=== PATIENT | male | born 1960 | race Caucasian/White ===

== ENCOUNTER 2021-03-17 05:42 | Inpatient (IN) ==
--- NOTE | 2021-02-18 14:20 | PAT Medication Instructions ---
Medication Instructions Date of Service February 18, 2021 Home Medications metformin 1,000 mg tablet 1,000 mg PO BID rosuvastatin 20 mg tablet 20 mg PO HS cholecalciferol (vitamin D3) 25 mcg (1,000 unit) chewable tablet (Vitamin D3) 25 mcg PO QAM cyanocobalamin (vitamin B-12) 1,000 mcg tablet,extended release (Vitamin B-12 ER) 1,000 mcg PO QAM lisinopril 2.5 mg tablet 2.5 mg PO QAM melatonin 1 mg/mL oral liquid 3 mg PO HS PRN sitagliptin 100 mg tablet (Januvia) 100 mg PO QAM DO NOT take the morning of surgery metformin 1,000 mg tablet 1,000 mg PO BID cholecalciferol (vitamin D3) 25 mcg (1,000 unit) chewable tablet (Vitamin D3) 25 mcg PO QAM cyanocobalamin (vitamin B-12) 1,000 mcg tablet,extended release (Vitamin B-12 ER) 1,000 mcg PO QAM lisinopril 2.5 mg tablet 2.5 mg PO QAM sitagliptin 100 mg tablet (Januvia) 100 mg PO QAM Take evening before surgery metformin 1,000 mg tablet 1,000 mg PO BID rosuvastatin 20 mg tablet 20 mg PO HS melatonin 1 mg/mL oral liquid 3 mg PO HS PRN(if needed) Other Notes NOTHING TO EAT OR DRINK AFTER MIDNIGHT. If you have any questions please call us at [phone] or [phone] or [phone] or [phone]
--- NOTE | 2021-02-19 09:29 | Anesthesiology Consultation ---
Date of Service February 19, 2021 Assessment & Plan (1) Encounter for pre-operative examination: - surgeon ordered medical clearance and hyperkalemia response. Results forwarded to PCP. - cardiac clearance. Pt denies upcoming cardiac appointment, last visit May or June of this year with Dr. Good Goldberg in [place], [place]. Clearance form completed for pre-op cardiology clearance to also be scheduled given PA and CABG within past year. - check BSG am DOS. - COVID screening: Per assessment on 02/19/2021: Travel screen negative, no known COVID-19 positive contacts or current COVID-19 related symptoms. Surgeon arranging preop COVID testing, scheduled 03/03/2021. Awaiting results. Chart Review Chart Review: Acceptable Risk for Surgery (pending pre-op clearances) and Patie nt seen in Pre Admission Testing Teaching & Discussion Pre-Anesthesia Teaching/Discussion Notes: Instructed NPO after midnight before surgery, except medications with 15 cc of water. Medication instructions provided according to the PAT guidelines. History Surgery Operation Date: 03/05/21 13:25 Proposed Procedures p L3-L5 Decompression and Fusion - Ashish Cooney, Height/Weight Height: 5 ft 6 in Weight: 108.4 kg Allergies Allergy/AdvReac Type Severity Reaction Status Date / Time bee venom protein (honey bee) Allergy Severe Anaphylaxis--YELLOW Verified 02/18/21 10:10 JACKETS shellfish derived Allergy Severe THROAT Verified 02/18/21 10:10 SWELLS, HIVES, RASH erythromycin base AdvReac Mild nausea and Verified 02/19/21 09:41 vomiting Medications Home Medications Medication Instructions Recorded Confirmed Last Taken metformin 1,000 mg tablet 1,000 mg PO BID 11/17/19 02/18/21 11/16/19 rosuvastatin 20 mg tablet 20 mg PO HS 11/17/19 02/18/21 11/16/19 cholecalciferol (vitamin D3) 25 25 mcg PO QAM 02/18/21 02/18/21 Unknown mcg (1,000 unit) chewable tablet (Vitamin D3) cyanocobalamin (vitamin B-12) 1,000 mcg PO QAM 02/18/21 02/18/21 Unknown 1,000 mcg tablet,extended release (Vitamin B-12 ER) lisinopril 2.5 mg tablet 2.5 mg PO QAM 02/18/21 02/18/21 Unknown melatonin 1 mg/mL oral liquid 3 mg PO HS PRN 02/18/21 02/18/21 Unknown sitagliptin 100 mg tablet (Januvia) 100 mg PO QAM 02/18/21 02/18/21 Unknown acetaminophen PRN 02/19/21 Unknown aspirin 81 mg PO DAILY 02/19/21 02/19/21 Unknown Additional Notes: Pt relayed is also taking a daily aspirin 81 mg and acetaminophen prn for pain. He was counseled on need to discuss aspirin directions with prescribing provider and surgeon. He was counseled acetaminophen if needed can be taken am DOS with a small sip of water up to 4 hours before surgery. He verbalized understanding and agreement, written on medication instructions provided to patient as well. 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 Exercise / Class Metabolic Activity II 4-5 Yardwork/Stairs/Walk up hill (denies CP or SOB with 1 FOS) Past Surgical History Surgical History (Updated 02/19/21 @ 08:48 by Carmel Cortez PA-C) Hx of CABG x3-05/2020-[facility] in [place] Hx of cardiac cath 04/2020 d/t anterior cervical discectomy and fusion post-op EKG dx with inferior infarct: left main: 70-80% stenosis LAD: ostial 60-70% and diagonal branch 90% stenosis left Cx: ostial 90% stenosis RCA: proximal and mid 70-80% stenosis Hx of cervical spine surgery 04/2020 C5-7 - complicated by inferior infarct per [facility] records-subsequent cath and CABG Hx of colonoscopy Hx of hand surgery Toni contracture and trigger finger Past Anesthesia History No Hx of Anesthesia Complications and No Family Hx of Anesthesia Complications History of PONV No Hx of PONV and Hx of Motion Sickness Social History Smoking Status: Former smoker (quit 35 yrs ago-a few cigarettes daily x 2 yrs) Do You Dip or Chew Tobacco: No Hx Alcohol Use: Yes (rare) Hx Substance Use: No substance use type: does not use Review of Systems Snoring, denies witnessed apneas or sleep studies. Patient denies chest discomfort, shortness of breath, dyspnea on exertion, light headedness, dizziness, diaphoresis, GI upset, fatigue, malaise, reflux, fever, chills, cough, wheezing, or palpitations. Physical Exam Vital Signs Vitals BP 128/81 P 71 TEMP 97.8 SP02 97% on RA RESP 17 Physical Short, thick neck Limited cervical extension range of motion Full TMJ range of motion TMD 3 finger breaths Mallampati Score 4 Dentition: intact, missing upper back teeth, one chipped lower back tooth; denies loose teeth, caps/crowns, implants or bridges Lungs: normal respiratory effort. Clear throughout to auscultation, no adventitious breath sounds Cardiac: regular rate and rhythm, no murmurs noted Carotid arteries: negative bruit bilat Extremities: trace distal pitting edema distal lower extremities bilat, nontender, normal temperature (chronic per pt, prescribed prn diuretic by PCP) Lab Results Anesthesia Preop Results Results Anesthesia Widget: WBC 6.24 K/uL (4.8-10.8) 02/19/21 Hgb 15.0 g/dL (14.0-18.0) 02/19/21 Hct 44.2 % (42-52) 02/19/21 Plt 194 K/uL (130-400) 02/19/21 Na 139 mmol/L (136-145) 02/19/21 K 5.6 mmol/L (3.5-5.1) H 02/19/21 Cl 106 mmol/L (98-107) 02/19/21 CO2 28 mmol/L (21-32) 02/19/21 BUN 19 mg/dl (7-18) H 02/19/21 Creat 1.22 mg/dl (0.6-1.4) 02/19/21 Glucose Level 144 mg/dl (70-99) H 02/19/21 PT 10.1 Seconds (9.0-12.0) 02/19/21 PTT 25.2 Seconds (21.0-31.0) 02/19/21 INR 1.0 (0.9-1.1) 02/19/21 HA1c 7.3 % (4.5-5.6) H 02/19/21 Urine Color Dark Yellow 02/19/21 Urine Appearance Clear (Clear) 02/19/21 Urine pH 5.0 (4.5-7.5) 02/19/21 Urine Specific [place] 1.013 (1.000-1.030) 02/19/21 Urine Protein Negative (Negative) 02/19/21 Urine Glucose (UA) Negative (Negative) 02/19/21 Urine Ketones Negative (Negative) 02/19/21 Urine Blood Trace (Negative) H 02/19/21 Urine Nitrite Negative (Negative) 02/19/21 Urine Bilirubin Negative (Negative) 02/19/21 Urine Urobilinogen Negative (Negative) 02/19/21 Urine Leukocyte Esterase Negative (Negative) 02/19/21 Urine WBC (Auto) 0 /hpf (0-5) 02/19/21 Urine RBC (Auto) 0-4 /hpf (0-4) 02/19/21 Urine Hyaline Casts (Auto) 0 /lpf (0-5) 02/19/21 Urine Epithelial Cells (Auto) 0-5 /lpf (0-5) 02/19/21 Urine Bacteria (Auto) Negative (Negative) 02/19/21 Blood Type O Positive 02/19/21 Antibody Screen NEGATIVE 02/19/21 Testing Electrocardiogram Date: 02/19/21 Normal sinus rhythm, rate 68 bpm. Low voltage QRS Possible inferior infarct. Chest X-Ray Date: 05/28/20 The patient has had sternotomy. There is cervical fusion hardware lower cervical spine. There is a calcified granuloma in the right lower lung. The lungs are clear otherwise. The heart is moderately enlarged. Impression: No active disease. Granuloma right lower lung. Post sternotomy changes. Cardiomegaly. Echocardiogram Date: 06/25/20 Mild to moderate cLVH. EF 70-75%. Normal left ventricular size, wall dimension and systolic function. No wall motion abnormalities. Normal diastolic function. No significant valvular stenosis or regurgitation. No PFO/ASD identified. Estimated PA systolic pressure is normal. Cardiac Catheterization Date: 05/04/20 Left main: diffuse disease that tapers into 70-80% stenosis LAD: ostium 60-70% stenosis and 99% stenosis 1st diagonal branch Left Cx: Ostial 90% stenosis RCA: proximal and mid 70-80% stenosis Impression/plan: Multivessel and left main coronary artery disease as described above Normal LVEDP CT surgery evaluation for consideration for coronary artery bypass graft surgery
--- NOTE | 2021-03-16 11:03 | History & Physical Report ---
Date of Service March 16, 2021 Assessment & Plan (1) Neurogenic claudication due to lumbar spinal stenosis: Plan: Assessment lumbar spinal stenosis. Plan at this time patient does have an updated MRI dated 01/20/2020 one of the lumbar spine. Demonstrates anterior listhesis L4-5 with gross instability. There is severe spinal stenosis L3-L4 as well. There is evidence of epidural lipomatosis and marked clumping of the nerve roots secondary to neural compression. In light of his severe spinal stenosis progressive neuro deficits and limitations I am recommending urgent lumbar decompression fusion L3-L4 L4-L5. Risk benefits pros cons alternatives were outlined in detail. History of Present Illness Chief Complaint: Back and bilateral leg pain Primary Care Provider: Niels Quiles MD This is a 60-year-old male who presents with marked decline in status with consistent back and right leg pain. Has been progressive the past several years. Is failed extensive course of nonoperative care. He can only stand ambulate for very short period of time before he must sit secondary to leg pain and weakness. Allergies Allergy/AdvReac Type Severity Reaction Status Date / Time bee venom protein (honey bee) Allergy Severe Anaphylaxis--YELLOW Verified 02/18/21 10:10 JACKETS shellfish derived Allergy Severe THROAT Verified 02/18/21 10:10 SWELLS, HIVES, RASH erythromycin base AdvReac Mild nausea and Verified 02/19/21 09:41 vomiting Home Medications Medication Instructions Recorded Confirmed Type metformin 1,000 mg tablet 1,000 mg PO BID 11/17/19 02/18/21 History rosuvastatin 20 mg tablet 20 mg PO HS 11/17/19 02/18/21 History cholecalciferol (vitamin D3) 25 25 mcg PO QAM 02/18/21 02/18/21 History mcg (1,000 unit) chewable tablet (Vitamin D3) cyanocobalamin (vitamin B-12) 1,000 mcg PO QAM 02/18/21 02/18/21 History 1,000 mcg tablet,extended release (Vitamin B-12 ER) lisinopril 2.5 mg tablet 2.5 mg PO QAM 02/18/21 02/18/21 History melatonin 1 mg/mL oral liquid 3 mg PO HS PRN 02/18/21 02/18/21 History sitagliptin 100 mg tablet (Januvia) 100 mg PO QAM 02/18/21 02/18/21 History acetaminophen PRN 02/19/21 History aspirin 81 mg PO DAILY 02/19/21 02/19/21 History Past Med/Surg History Medical History (Updated 03/16/21 @ 11:02 by Ashish Cooney DO) CAD (coronary artery disease) s/p 3 vessel CABG 05/2020, [facility] De Quervain's disease (tenosynovitis) 1985, resolved Diabetes controlled, stable per pt History of COVID-19 01/23/2020 - chills, pharyngitis, fatigue, cough, low grade fever and malaise- symptoms fully resolved Hyperlipidemia Hypertension controlled, stable per pt Myocardial infarction 04/2020 during cervical fusion > cath > CABG > 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 [place] Spinal stenosis Steatosis of liver in [facility] records, pt unaware, denies previous LFT testing Surgical History (Updated 02/19/21 @ 08:48 by Carmel Cortez PA-C) Hx of CABG x3-05/2020-[facility] in [place] Hx of cardiac cath 04/2020 d/t anterior cervical discectomy and fusion post-op EKG dx with inferior infarct: left main: 70-80% stenosis LAD: ostial 60-70% and diagonal branch 90% stenosis left Cx: ostial 90% stenosis RCA: proximal and mid 70-80% stenosis Hx of cervical spine surgery 04/2020 C5-7 - complicated by inferior infarct per [facility] records-subsequent cath and CABG Hx of colonoscopy Hx of hand surgery Toni contracture and trigger finger Social History Smoking Status: Former smoker (quit 35 yrs ago-a few cigarettes daily x 2 yrs) Tobacco Type: Cigarettes Second Hand Exposure: No; Hx Alcohol Use: Yes (rare) Hx Substance Use: No Preferred Language: Tongan Communication Ability: Effective Deodorizer Operator Required: No Beliefs That Will Affect Care: None Current Living Situation: Spouse Feels Safe at Home: Yes Assistive Devices: Glasses Physical Exam Physical Exam: On exam he does Exhibit 4-/5 bilateral quadriceps plantar flexion is a 5 or 5 bilaterally. Sensory appears to be intact deep tendon reflexes diminished.
[2021-03-17] MEDS ORDERED: LR 15ML/HR IV SCH (06:00)
[2021-03-17] MEDS ORDERED: CLINDAMYCIN 600 MG/54 ML BAG IV SCH (06:00)
[2021-03-17] MEDS ORDERED: CeleBREX 200 MG CAP PO SCH (06:00)
[2021-03-17] MEDS ORDERED: GABAPENTIN 600 MG DOSE PO SCH (06:00)
[2021-03-17] MEDS ORDERED: ACETAMINOPHEN 500 MG TAB PO SCH (06:00)
[2021-03-17] MEDS ORDERED: HYDROmorphone INJ 2 MG/ML SYR/VIAL IV PRN (06:30)
[2021-03-17] MEDS ORDERED: ATROPINE SULFATE 0.1 MG/ML 10ML SYR IV PRN (06:30)
[2021-03-17] MEDS ORDERED: ePHEDrine sulfate 50 MG/ML AMP IV PRN (06:30)
[2021-03-17] MEDS ORDERED: ONDANSETRON INJ 2 MG/ML 2 ML VIAL IV PRN ×2 (06:30→12:53)
[2021-03-17] MEDS ORDERED: NEOSTIGMINE METHYLSULFATE 1 MG/ML 10ML VIAL ONE (06:54)
[2021-03-17] MEDS ORDERED: ONDANSETRON INJ 2 MG/ML 2 ML VIAL ONE (06:54)
[2021-03-17] MEDS ORDERED: ROCURONIUM BROMIDE 10 MG/ML 5 ML VIAL IV ONE (06:54)
[2021-03-17] MEDS ORDERED: DEXAMETHASONE SOD INJ 4 MG/ML VIAL ONE (06:54)
[2021-03-17] MEDS ORDERED: GLYCOPYRROLATE 0.2 MG/ML VIAL ONE (06:54)
[2021-03-17] MEDS ORDERED: HYDROmorphone INJ 2 MG/ML SYR/VIAL ONE (06:54)
[2021-03-17] MEDS ORDERED: MIDAZOLAM HCL 1 MG/ML 2ML VIAL ONE (06:54)
[2021-03-17] MEDS ORDERED: fentaNYL citrate 100 MCG/2 ML VIAL ONE (06:54)
--- NOTE | 2021-03-17 07:32 | History & Physical Bridge Note ---
Date of Service March 17, 2021 History & Physical Bridge Note I have examined the patient, reviewed the History & Physical and in the interval since the performance of the History & Physical I have noted the following changes of clinical significance: no changes noted
[2021-03-17] MEDS ORDERED: BUPIVACAINE 0.5 % 5 MG/1 ML MPF 30ML VIAL ONE (07:35)
[2021-03-17] MEDS ORDERED: EPINEPHrine INJ 1 MG/ML AMP ONE (07:35)
[2021-03-17] MEDS ORDERED: FLOSEAL HEMOSTATIC MATRIX 10ML TOP ONE (09:55)
--- NOTE | 2021-03-17 09:59 | Operative Report ---
Post Operative Report Pre & Post Diagnosis Operation Date: 03/17/21 07:15 Pre-Op Diagnosis: Spinal Stenosis, Lumbar Region with Neurogenic Claudication Post-Op Diagnosis: Spinal Stenosis, Lumbar Region with Neurogenic Claudication I identified the patient and participated in the time-out.: Yes Procedure Operation Date: 03/17/21 07:15 Actual Procedures #1 lumbar decompression with bilateral medial facetectomies and foraminotomies L2-L3, L3-L4 and L4-5. #2 posterior spinal fusion L3-L4 L4-5. #3 placement posterior instrumentation L3-L4 L4-L5. #4 interbody fusion L3-L4 L4-L5. #5 placement of titanium cage 11 x 26 mm at L3-L4 and 12 x 26 mm at L4-L5. #6 placement locally harvested morselized autograft in the posterior gutters. #7 placement infuse collagen sponge, and master graft in the posterior lateral gutters and I factor interbody space. Surgeon Ashish Cooney, DO Horse Identifier Michael Treviño Estimated Blood Loss 250 Findings See Below Patient is 5 foot 5 inches tall weighing over 105 kg with a BMI in excess of 38. The patient's body habitus did contribute to significant technical difficulty requiring her deepest retractors longus instruments in order to perform his procedure. This had at least 50% increased operative time. Specimens None Indications This is a 60-year-old male who presents above-mentioned diagnosis after failing course of nonoperative care is here for the above-mentioned procedure. Description of Procedure Patient was met with identified informed consent obtained. Patient was then taken to the operative suite underwent a patient placed in a prone position the [place] table top Akshat frame. All bony prominences well-padded eyes inspected to ensure no external pressure placed upon the. This point the lumbar spine is prepped and draped in a normal sterile fashion. Sharp dissection with the assistance of Bovie cautery was performed down to and exposing the lamina and transverse processes of L3-L4-L5. From caudal to cephalad fashion complete laminectomy of L4 L3 and partial laminectomy of L2 was performed including bilateral medial facetectomies and foraminotomies addressing severe spinal stenosis. Pedicle screws were then placed in L3-L4-L5 bilaterally with assistance of fluoroscopy and the properly sized nella placed. By way of a transforaminal approach on the left complete discectomy of L for L5 was performed endplates curetted to subcortical being bone and a 12 x 26 mm titanium cage filled with I factor tapped in position. Then proceeded to L3-L4 and again by way of a transforaminal portion left knee discectomy performed endplates curetted to subcortical bleeding bone and a 11 x 26 mm titanium cage filled with I factor tapped into position. The rods were then compressed locked into final position bilaterally. The transverse processes of L3-L4-L5 burred to subcortical bleeding bone. Infuse collagen sponge mass graft local autograft was placed in the posterior gutters. 15 round KEERTHI drain inserted. The incision was then closed with 1 Vicryl in the fascia 2-0 Vicryl subcutaneously and 4 Monocryl for final skin closure. Steri-Strip sterile dressings placed. Patient will continue PACU stable condition. Please note spinal cord monitoring was utilized at the procedure no changes noted. Lastly Michael Trveiño was present for the entire surgery involved the patient positioning complex portions of the surgery and final skin closure. I attest to the content of the Intraoperative Record and any orders documented therein. Any exceptions are noted below.
--- NOTE | 2021-03-17 10:39 | Fluoroscopy Report ---
FL lumbar spine 2-3V CLINICAL HISTORY: L3-L5 decompression and fusion. COMPARISON STUDY: None. FLUOROSCOPY TIME: 23 seconds. FLUOROSCOPIC IMAGES: 2 FINDINGS: Fluoroscopy was provided during L3-L4 and L4-L5 discectomies with interbody spacer placemen t. Posterior decompression and bilateral pedicle screw fusion from L3 through L5 is noted. Hardware i s intact. IMPRESSION: Fluoroscopy provided during L3-L5 discectomies, posterior decompression and bilateral pe dicle screw fusion. ACT 112: Negative or not required by law. Electronically signed by: Delbert Brock M.D. 03/17/2021 10:37 AM
[2021-03-17] MEDS: fentaNYL citrate 100 MCG/2 ML VIAL IV PRN ×2 (10:51→11:04)
[2021-03-17] MEDS ORDERED: HYDROmorphone INJ 0.5 MG/0.5 ML SYR IV PRN (12:53)
[2021-03-17] MEDS ORDERED: traMADol HCL 50 MG TABLET PO PRN (12:53)
[2021-03-17] MEDS ORDERED: MAGNESIUM HYDROXIDE SUSP 30 ML UDC PO PRN (12:53)
[2021-03-17] MEDS ORDERED: LORazepam 0.5 MG TAB PO PRN (12:53)
[2021-03-17] MEDS ORDERED: ONDANSETRON 4 MG OD TAB PO PRN (12:53)
[2021-03-17] MEDS ORDERED: ACETAMINOPHEN 500 MG TAB PO PRN (12:53)
[2021-03-17] MEDS ORDERED: diphenhydrAMINE Capsule 25 MG CAP PO PRN (12:53)
[2021-03-17] MEDS ORDERED: LORazepam 0.5 MG/1 ML VIAL IV PRN (12:53)
[2021-03-17] MEDS ORDERED: PROMETHAZINE HCL 12.5 MG in SODIUM CHLORIDE 0.9% 50 ML IV PRN (12:53)
[2021-03-17] MEDS ORDERED: FAMOTIDINE 20 MG TAB PO PRN (12:53)
[2021-03-17] MEDS ORDERED: bisacodyL 10 MG SUPP PR PRN (12:53)
[2021-03-17] MEDS ORDERED: hydrOXYzine HCl 25 MG TAB PO PRN (12:53)
[2021-03-17] MEDS ORDERED: METOCLOPRAMIDE HCL INJ 5 MG/ML 2 ML VIAL IV PRN (12:53)
[2021-03-17] MEDS ORDERED: SOD PHOSPHATE/SOD BIPHOSPHATE ENEMA 132 ML BTL PR PRN (12:53)
[2021-03-17] MEDS ORDERED: NALOXONE HCL 0.4 MG/1 ML VIAL/CARP IV PRN (12:53)
[2021-03-17] MEDS ORDERED: DO NOT ADMINISTER FLU VACCINE PRN (12:53)
[2021-03-17] MEDS ORDERED: ALUMINUM/MAGNESIUM SUSP 30 ML UDC PO PRN (12:53)
[2021-03-17] MEDS ORDERED: PHARMACY GLYCEMIC MGMT CONSULT PRN (12:53)
[2021-03-17] MEDS ORDERED: ACETAMINOPHEN 1,000 MG/100 ML VIAL IV PRN (12:53)
[2021-03-17] MEDS ORDERED: DO NOT ADMINISTER PNEUMOCOCCAL VACCINE PRN (12:53)
[2021-03-17] MEDS ORDERED: MELATONIN 3 MG TAB PO PRN (13:04)
--- NOTE | 2021-03-17 13:22 | Pharmacy Report ---
Pharmacy Glycemic Short Note 2 - Date of Service March 17, 2021 - Glycemic Short BSG Results (Last 24 hours): 03/17/21 03/17/21 03/17/21 06:14 10:29 12:52 POC Glucose 164 H 172 H 219 H OUTPATIENT ANTIDIABETIC REGIMEN: * Januvia 100 mg daily * metformin 1000 mg PO BID ASSESSMENT: * Mr Butt is a 60 y/o M with a PMH of T2DM on two oral agents who presents for spinal surgery. * He received dexamethasone 4 mg IV intraop and is ordered dexamethasone 6 mg IV daily x 3 days * Patient's BSGs today have been 164-172-219 mg/dL. * Give NPH 40 units (0.4 units/kg) x 1 for steroid hyperglycemia. Ongoing NPH dosing to be determined by response today. * Novolog weight-based stress of 3 PLAN FOR INPATIENT GLYCEMIC CONTROL: * Hold outpatient oral diabetes medications * Basal insulin * NPH 40 units SQ x 1 then reassess * Bolus insulin * NovoLog per scale ACHS or Q6hrs while NPO * Goal Range: Low 110 mg/dL - High 140 mg/dL * Correction Factor: 15 mg/dL/unit * Nutritional / Prandial insulin per carb ratio of 1 unit per 5 grams CHO consumed PLAN FOR DISCHARGE: * Patient's HbA1C is 7.3% which is slightly above goal range of < 7% for his age and comorbidities. * Recommend close follow-up with PCP to determine appropriate changes.
[2021-03-17] MEDS ORDERED: INSULIN HUMAN NPH SC ONE (13:30)
[2021-03-17] MEDS ORDERED: GLUCAGON FOR INJ 1 MG VIAL IM PRN (13:30)
[2021-03-17] MEDS ORDERED: GLUCOSE 40% GEL 15 GM TUBE PO PRN (13:30)
[2021-03-17] MEDS ORDERED: GLUCOSE 10 TABS/TUBE PO PRN (13:30)
[2021-03-17] MEDS ORDERED: CARBOHYDRATES FOR HYPOGLYCEMIA PO PRN (13:30)
[2021-03-17] MEDS ORDERED: DEXTROSE 50% 50 ML SYRINGE IV PRN (13:30)
--- NOTE | 2021-03-17 13:30 | Consultation ---
Date of Consultation March 17, 2021 Assessment & Plan (1) Status post lumbar surgery: Post op day# 0 S/P L2-L5 decompression, L2-L5 fusion by Dr Cooney EBWilma#250 mL -pain management per ortho -wound management per ortho -PT/OT as appropriate -DVT prophylaxis per ortho -incentive spirometry -monitor H&H for acute blood loss anemia; preop Hgb: 15 (2) Diabetes mellitus, type II: A1c: 7.3 on 02/2021 Hold home meds Basal bolus insulin per protocol. Glycemic pharmacy on board and managing, appreciate management (3) CAD (coronary artery disease): S/P CABG in 04/2020 Denies chest pain, shortness of breath Continue aspirin, rosuvastatin, lisinopril (4) CKD (chronic kidney disease), stage III: Baseline Cr:1.1 Monitor renal functions, avoid nephrotoxic agents when possible (5) Hypertension: Continue lisinopril with holding parameters (6) Hyperlipidemia: Continue rosuvastatin DVT Prophylaxis SCDs per ortho Disposition per primary service Follows with Dr Eboni Peralta for routine care Pt was seen and care coordinated with Dr Preciado. See addendum Thank you for this consultation. We will follow the patient with you during their hospital stay. You can reach a member of the [facility] Hospitalist Team 10/10 via TigerText Supervising Physician Co-Signing Physician Notes Attending addendum: The patient was seen and examined in medical floor 60-year-old obese male with type 2 diabetes, hypertension and CKD and CAD status post CABG underwent L2-5 decompression fusion Complains today of some back pain without any radiation of pain Denies any other significant symptoms On examination Lying in bed comfortably Hemodynamically stable Chest-clear to auscultate bilaterally Heart-S1-S2, regular Abdomenbenign Extremities-trace edema bilaterally [employer]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, 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 His preop labs, EKG and imaging studies reviewed Status post L2-5 lumbar decompression fusion Management will be as per orthopedic surgeon Remains medically stable with medical conditions as mentioned earlier Agree with assessment and plan as outlined above by OLU Lee Dr History of Present Illness Requesting Physician: Dr Cooney Reason for Consultation: Post op medical management Attending Physician: Ashish Cooney DO History of Present Illness Patient is 60 y/o M with PMH HTN, dyslipidemia, CAD s/p CABG, DM II, CKD III, obesity seen in medical consultation s/p L2-L5 decompression and L3-L5 fusion today by Dr Cooney. Post op patient reports pain control, still feels a little drowsy. Denies nausea, vomiting, chest pain, shortness of breath. Reports bilateral leg still with a little paresthesias. Is tolerating water. Denies fever/chills, diaphoresis, RAHMAN, dizziness, syncope, vision changes, neck pain, palpitations, cough, sore throat, choking, otalgia, rhinorrhea, abdominal pain, weakness, extremity edema, rashes, urinary symptoms. Allergies Allergy/AdvReac Type Severity Reaction Status Date / Time bee venom protein (honey bee) Allergy Severe Anaphylaxis--YELLOW Verified 03/17/21 05:57 JACKETS shellfish derived Allergy Severe THROAT Verified 03/17/21 05:57 SWELLS, HIVES, RASH erythromycin base AdvReac Mild nausea and Verified 03/17/21 05:57 vomiting Home Medications Medication Instructions Recorded Confirmed Type metformin 1,000 mg tablet 1,000 mg PO BID 11/17/19 03/17/21 History rosuvastatin 20 mg tablet 20 mg PO HS 11/17/19 03/17/21 History cholecalciferol (vitamin D3) 25 25 mcg PO QAM 02/18/21 03/17/21 History mcg (1,000 unit) chewable tablet (Vitamin D3) cyanocobalamin (vitamin B-12) 1,000 mcg PO QAM 02/18/21 03/17/21 History 1,000 mcg tablet,extended release (Vitamin B-12 ER) melatonin 1 mg/mL oral liquid 3 mg PO HS PRN 02/18/21 03/17/21 History sitagliptin 100 mg tablet (Januvia) 100 mg PO QAM 02/18/21 03/17/21 History acetaminophen PRN 02/19/21 History aspirin 81 mg PO DAILY 02/19/21 03/17/21 History lisinopril 5 mg tablet 5 mg PO DAILY 03/17/21 03/17/21 History Patient History Medical History (Updated 03/17/21 @ 13:52 by Ginger Okeefe PA-C) CAD (coronary artery disease) s/p 3 vessel CABG 05/2020, [facility] CKD (chronic kidney disease), stage III De Quervain's disease (tenosynovitis) 1984, resolved Diabetes controlled, stable per pt History of COVID-19 01/23/2020 - chills, pharyngitis, fatigue, cough, low grade fever and malaise- symptoms fully resolved Hyperlipidemia Hypertension controlled, stable per pt Myocardial infarction 04/2020 during cervical fusion > cath > CABG > 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 [place] Spinal stenosis Steatosis of liver in [facility] records, pt unaware, denies previous LFT testing Surgical History (Updated 03/17/21 @ 13:51 by Ginger Okeefe PA-C) Hx of CABG x3-05/2020-[facility] in [place] Hx of cardiac cath 04/2020 d/t anterior cervical discectomy and fusion post-op EKG dx with inferior infarct: left main: 70-80% stenosis LAD: ostial 60-70% and diagonal branch 90% stenosis left Cx: ostial 90% stenosis RCA: proximal and mid 70-80% stenosis Hx of cervical spine surgery 04/2020 C5-7 - complicated by inferior infarct per [facility] records-subsequent cath and CABG Hx of colonoscopy Hx of hand surgery Toni contracture and trigger finger Status post lumbar surgery 03/17/21 -Lumbar decompression, fusion. Dr Cooney Social History Smoking Status: Former smoker (quit 35 yrs ago-a few cigarettes daily x 2 yrs) Tobacco Type: Cigarettes Second Hand Exposure: No; Do You Dip or Chew Tobacco: No; Tobacco Cessation Education Requested by Patient: No Hx Alcohol Use: Yes (rare) Hx Substance Use: No Preferred Language: Arabic Communication Ability: Effective Mobile Electronics Installer Required: No Beliefs That Will Affect Care: None Current Living Situation: Spouse Other Information That Helps Us Care for You: No Feels Safe at Home: Yes Safety Concerns: Feels Safe At This Time Assistive Devices: Glasses Review of Systems Review of Systems: All systems reviewed & are unremarkable except as noted in HPI & below Physical Exam Physical Exam: General: no distress, WDWN Head: normocephalic, atraumatic Eyes: conjunctiva non-injected, anicteric ENT: normal inspection external ears, nose, mucous membranes moist Neck: supple, trachea midline Lungs: clear, no respiratory distress, no wheezing/rhonchi/rales CV: RRR, no murmur, no pretibial edema, chest wall with healed surgical scar Abd: normal BS, soft, non-tender Ext: no cyanosis, no calf tenderness Neuro: A&O x 3, no focal deficits noted, normal affect Skin: warm, dry Results & Data ([facility]) Vital Signs (Past 12 Hours) Vital Signs Temp Pulse Pulse Resp BP Pulse Ox 03/17/21 13:15 36.6 C 83 17 104/69 97 03/17/21 12:15 36.6 C 74 16 104/66 95 03/17/21 11:45 72 18 95/61 L 95 03/17/21 11:35 70 16 99/60 L 95 03/17/21 11:25 69 17 97/63 L 96 03/17/21 11:15 70 14 99/60 L 95 03/17/21 11:05 76 18 102/65 97 03/17/21 10:55 70 11 L 101/68 93 03/17/21 10:45 69 16 95/64 L 94 03/17/21 10:35 79 17 111/69 96 03/17/21 10:26 36.7 C 82 16 106/67 95 03/17/21 06:00 36.6 C 77 18 143/92 H 95
[2021-03-17] MEDS: SODIUM CHLORIDE 0.9% 1000ML 1,000 ML IV SCH ×2 (13:42→23:17)
[2021-03-17] MEDS: INSULIN ASPART PER UNIT SC SCH ×4 (13:48→23:56)
[2021-03-17] MEDS: KETOROLAC TROMETHAMINE 15 MG/ML VIAL IV SCH ×2 (13:54→19:38)
--- NOTE | 2021-03-17 14:54 | Anesthesiology Progress Note ---
Date of Service March 17, 2021 Anesthesia Post Procedure Vital Signs Vital Signs: Temp Pulse Pulse Resp BP Pulse Ox 03/17/21 13:45 36.5 C 91 H 16 99/64 L 97 03/17/21 13:15 36.6 C 83 17 104/69 97 03/17/21 12:15 36.6 C 74 16 104/66 95 03/17/21 11:45 72 18 95/61 L 95 03/17/21 11:35 70 16 99/60 L 95 03/17/21 11:25 69 17 97/63 L 96 03/17/21 11:15 70 14 99/60 L 95 03/17/21 11:05 76 18 102/65 97 03/17/21 10:55 70 11 L 101/68 93 03/17/21 10:45 69 16 95/64 L 94 03/17/21 10:35 79 17 111/69 96 03/17/21 10:26 36.7 C 82 16 106/67 95 03/17/21 06:00 36.6 C 77 18 143/92 H 95 Pain Intensity Back: Pain Intensity: 2 Transfer of Care Handoff Completed per policy Notes Mental Status: alert / awake / arousable and participated in evaluation Patient Amnestic to Procedure: Yes Nausea / Vomiting: adequately controlled Pain: adequately controlled Airway Patency, RR, SpO2: stable & adequate BP & HR: stable & adequate Hydration State: stable & adequate Anesthetic Complications: no major complications apparent and Pt Satisfied with anesthetic care
[2021-03-17] MEDS ORDERED: INSULIN ASPART PER UNIT SC SCH (16:30)
[2021-03-17] MEDS: HYDROmorphone INJ 1 MG/ML SYRINGE IV PRN (16:46)
[2021-03-17] MEDS: ceFAZolin 2000MG 2,000 MG/15 ML SYR IV SCH (17:29)
[2021-03-17] MEDS: DOCUSATE SODIUM/SENNA 50/8.6MG TAB PO SCH (20:45)
[2021-03-17] MEDS: oxyCODONE HCL IR 5 MG TAB (IMMEDIATE RELEASE) PO PRN (20:45)
[2021-03-17] MEDS: ROSUVASTATIN CALCIUM 20 MG TAB PO SCH (20:45)
[2021-03-18] MEDS: ceFAZolin 2000MG 2,000 MG/15 ML SYR IV SCH (01:00)
[2021-03-18] MEDS: KETOROLAC TROMETHAMINE 15 MG/ML VIAL IV SCH ×2 (01:01→08:08)
[2021-03-18] MEDS: INSULIN ASPART PER UNIT SC SCH ×5 (04:03→21:07)
[2021-03-18] MEDS: POLYETHYLENE (MIRALAX) 17 GM PACK PO SCH ×4 (06:03→23:33)
[2021-03-18 07:38] LABS: Basophils # (auto) 0.01 K/uL (0-0.2); Basophils % (auto) 0.1 %; Eosinophils # (auto) 0.02 K/uL (0-0.5); Eosinophils % (auto) 0.1 %; Hematocrit (blood only) 35.6 % (42-52); Hemoglobin 11.7 g/dL (14.0-18.0); Immature Granulocytes # (auto) 0.05 K/uL (0.00-0.02); Immature Granulocytes % (auto) 0.4 %; Lymphocytes # (auto) 1.65 K/uL (1.2-3.4); Mean Corpuscular Hemoglobin 28.4 pg (25-34); Mean Corpuscular Hgb Conc 32.9 g/dL (32-36); Mean Corpuscular Volume 86.4 fL (80-100); Mean Platelet Volume 9.9 fL (7.4-10.4); Monocytes # (auto) 1.43 K/uL (0.11-0.59); Monocytes % (auto) 10.4 %; Platelet Count 184 K/uL (130-400); RDW Coefficient of Variation 13.1 % (11.5-14.5); RDW Standard Deviation 41.4 fL (36.4-46.3); Red Blood Count 4.12 M/uL (4.7-6.1); White Blood Count 13.76 K/uL (4.8-10.8)
--- NOTE | 2021-03-18 07:58 | Hospitalist Progress Note ---
Date of Service March 18, 2021 Assessment & Plan (1) Status post lumbar surgery: Plan: Post op day# 1 S/P L2-L5 decompression, L2-L5 fusion by Dr Ivet PICKETT#250 mL Per ortho for pain control, wound care, anticoagulation and activities Continue incentive spirometry, PT/OT when appropriate (2) Postoperative anemia due to acute blood loss: Plan: Hgb 11.7 (pre-op hgb 15) in post op setting Asymptomatic Monitor with daily CBC (3) Diabetes mellitus, type II: Plan: A1c: 7.3 on 02/2021 Hold home meds Basal bolus insulin per protocol. Glycemic pharmacy on board and managing, appreciate management (4) CAD (coronary artery disease): Plan: S/P CABG in 04/2020 Denies chest pain, shortness of breath Continue aspirin, rosuvastatin, lisinopril (5) CKD (chronic kidney disease), stage III: Plan: Baseline Cr:1.1 Monitor renal functions, avoid nephrotoxic agents when possible (6) Hypertension: Plan: Continue lisinopril with holding parameters (7) Hyperlipidemia: Plan: Continue rosuvastatin DVT Prophylaxis SCDs per ortho Disposition per primary service Follows with Dr Eboni Peralta for routine care Pt was seen and care coordinated with Dr. Lagos. See addendum Thank you for this consultation. We will follow the patient with you during their hospital stay. You can reach a member of the [facility] Hospitalist Team 10/10 via TigerText Admission and Anticipated Discharge Date Admission Date: March 17, 2021 Supervising Physician Co-Signing Physician Notes 60-year-old gentleman with PMH of CKD stage III, HLD, HTN, DM type II, neurogenic claudication due to lumbar spinal stenosis, diabetes is a consult for medical management. Patient is a status post lumbar surgery 03/17 [status post L2-L5 decompression and fusion]. Monitor for postoperative anemia, CBC daily, continue home meds as appropriate. Incentive spirometry. Anticoagulation and physical therapy and pain management per primary team. Upon examination, dressing over the lower back noted with KEERTHI drain with serosanguineous collection. Other examination as above. I have seen and examined the patient and have discussed the case with the provider above. I agree with the assessment and plan as stated. Subjective Patient seen and examined in 322-1. Feeling well today, with minimal surgical site pain. Walking and participating in therapy without issue. Has Fontenot in place draining urine. Passing flatus, no bowel movement. No fever, chills, headache, lightheadedness, nausea, vomiting, abdominal pain, dysuria or diarrhea. Review of Systems Review of Systems: At least ten systems reviewed and negative except as noted in the HPI. Physical Exam Physical Exam: Gen: WD/WN, NAD, sitting in bedside chair, A&Ox3, obese HEENT: Normocephalic, atraumatic, conjunctivae moist, sclerae anicteric, mucous membranes moist Lung: Clear to Auscultation bilaterally, no wheezes/rales/rhonchi Heart: Regular rate, regular rhythm, no murmurs, rubs, or gallops Abdomen: Soft, NT, ND +BS x 4 Extremities: Spinal dressing in place, KEERTHI drain visualized, no edema Skin: Warm, no rash Results & Data Results & Data ([facility]) Vital Signs (Past 12 Hours) Vital Signs Temp Pulse Resp BP BP Pulse Ox 03/18/21 07:26 36.8 C 75 16 120/73 94 03/18/21 03:34 36.7 C 73 16 128/83 96 03/17/21 21:58 36.5 C 80 16 150/87 H 93 Laboratory Results Short CBC 03/18/21 Range/Units 06:57 WBC 13.76 H (4.8-10.8) K/uL Hgb 11.7 L (14.0-18.0) g/dL Hct 35.6 L (42-52) % Plt Count 184 (130-400) K/uL Diagnostic Findings Lumbar Spine X-Ray 03/17/21 07:15 FL lumbar spine 2-3V CLINICAL HISTORY: L3-L5 decompression and fusion. COMPARISON STUDY: None. FLUOROSCOPY TIME: 23 seconds. FLUOROSCOPIC IMAGES: 2 FINDINGS: Fluoroscopy was provided during L3-L4 and L4-L5 discectomies with interbody spacer placement. Posterior decompression and bilateral pedicle screw fusion from L3 through L5 is noted. Hardware is intact. IMPRESSION: Fluoroscopy provided during L3-L5 discectomies, posterior decompression and bilateral pedicle screw fusion. ACT 112: Negative or not required by law. Electronically signed by: Delbert Brock M.D. 03/17/2021 10:37 AM
[2021-03-18 08:06] LABS: BUN Creatinine Ratio 14.2 (10-20); Calcium 8.3 mg/dl (8.5-10.1); Creatinine Clr Calc Pharmacy 38.1 ml/min; Est GFR (Non-African American) 29.3 ml/min
[2021-03-18] MEDS: CYANOCOBALAMIN 500 MCG TABLET (VITAMIN B-12) PO SCH (08:08)
[2021-03-18] MEDS: CHOLECALCIFEROL 1,000 UNITS 25 MCG TAB PO SCH (08:09)
[2021-03-18] MEDS: ASPIRIN 81 MG ECTAB PO SCH (08:09)
[2021-03-18] MEDS: dexAMETHasone 6 MG in SYRINGE 0 ML IV SCH (08:09)
[2021-03-18] MEDS: INSULIN HUMAN NPH SC SCH (08:15)
[2021-03-18] MEDS: lisinopril 5 MG TAB PO SCH (08:57)
[2021-03-18] MEDS ORDERED: lisinopril 2.5 MG TAB PO SCH (09:00)
[2021-03-18] MEDS ORDERED: SITagliptin PHOSPHATE 100 MG TAB PO SCH (09:00)
[2021-03-18] MEDS: oxyCODONE HCL IR 5 MG TAB (IMMEDIATE RELEASE) PO PRN ×2 (09:42→16:51)
--- NOTE | 2021-03-18 10:58 | Orthopedic Progress Note ---
Date of Service March 18, 2021 Assessment & Plan (1) Neurogenic claudication due to lumbar spinal stenosis: Plan: At this time we will continue physical therapy monitor KEERTHI output anticipate discharge home in the next few days. Admission and Anticipated Discharge Date Admission Date: March 17, 2021 Subjective Back pain is controlled leg symptoms markedly improved Physical Exam Physical Exam: Patient is in the chair at the bedside. Is good strength testing. Appears comfortable. Results & Data ([facility]) Vital Signs (Past 12 Hours) Vital Signs Temp Pulse Resp BP BP Pulse Ox 03/18/21 07:26 36.8 C 75 16 120/73 94 03/18/21 03:34 36.7 C 73 16 128/83 96
[2021-03-18] MEDS: ROSUVASTATIN CALCIUM 20 MG TAB PO SCH (21:08)
[2021-03-18] MEDS: DOCUSATE SODIUM/SENNA 50/8.6MG TAB PO SCH (21:08)
[2021-03-18] MEDS: HYDROmorphone INJ 1 MG/ML SYRINGE IV PRN (21:08)
[2021-03-19] MEDS: POLYETHYLENE (MIRALAX) 17 GM PACK PO SCH ×4 (06:00→23:35)
[2021-03-19] MEDS: oxyCODONE HCL IR 5 MG TAB (IMMEDIATE RELEASE) PO PRN ×2 (06:01→16:44)
[2021-03-19 06:22] LABS: Hematocrit (blood only) 35.3 % (42-52); Hemoglobin 11.6 g/dL (14.0-18.0); Mean Corpuscular Hemoglobin 28.5 pg (25-34); Mean Corpuscular Hgb Conc 32.9 g/dL (32-36); Mean Corpuscular Volume 86.7 fL (80-100); Platelet Count 183 K/uL (130-400); RDW Coefficient of Variation 13.2 % (11.5-14.5); Red Blood Count 4.07 M/uL (4.7-6.1); White Blood Count 11.93 K/uL (4.8-10.8)
[2021-03-19 06:56] LABS: BUN Creatinine Ratio 19.9 (10-20); Calcium 8.8 mg/dl (8.5-10.1); Creatinine Clr Calc Pharmacy 59.1 ml/min; Est GFR (African American) 57.8 ml/min; Est GFR (Non-African American) 49.8 ml/min; Potassium 4.9 mmol/L (3.5-5.1)
--- NOTE | 2021-03-19 08:46 | Hospitalist Progress Note ---
Date of Service March 19, 2021 Assessment & Plan (1) Status post lumbar surgery: Plan: Post op day# 2 S/P L2-L5 decompression, L2-L5 fusion by Dr Ivet PICKETT#250 mL Per ortho for pain control, wound care, anticoagulation and activities Continue incentive spirometry, PT/OT when appropriate (2) Postoperative anemia due to acute blood loss: Plan: Hgb 11.6 (11.7 doitqhyja-rpw-hc hgb 15) in post op setting Asymptomatic Monitor with daily CBC (3) Diabetes mellitus, type II: Plan: A1c: 7.3 on 02/2021 Hold home meds Basal bolus insulin per protocol. Glycemic pharmacy on board and managing, appreciate management (4) CAD (coronary artery disease): Plan: S/P CABG in 04/2020 Denies chest pain, shortness of breath Continue aspirin, rosuvastatin, lisinopril (5) Acute kidney injury superimposed on CKD: Plan: Cr 1.51 today (improved from 2.34 yesterday) in post-op setting Baseline Cr:1.1 Hold lisinopril, Toradol discontinued Monitor renal functions with daily BMP (6) Hypertension: Plan: Hold lisinopril in setting of FABIOLA. PRN hydralazine as needed (7) Hyperlipidemia: Plan: Continue rosuvastatin DVT Prophylaxis SCDs per ortho Disposition per primary service Follows with Dr Eboni Peralta for routine care Pt was seen and care coordinated with Dr. Lagos. See addendum Thank you for this consultation. We will follow the patient with you during their hospital stay. You can reach a member of the [facility] Team 10/10 via TigerText Admission and Anticipated Discharge Date Admission Date: March 17, 2021 Supervising Physician Co-Signing Physician Notes 60-year-old gentleman with PMH of CKD stage III, HLD, HTN, DM type II, neurogenic claudication due to lumbar spinal stenosis, diabetes is a consult for medical management. Patient is a status post lumbar surgery 03/17 [status post L2-L5 decompression and fusion]. Monitor for postoperative anemia, CBC daily, continue home meds as appropriate. Incentive spirometry. Anticoagulation and physical therapy and pain management per primary team. Renal function improving trend. KEERTHI drain is still draining copious serosanguineous fluid. Upon examination, dressing over the lower back noted with KEERTHI drain with serosanguineous collection. Other examination as above. I have seen and examined the patient and have discussed the case with the provider above. I agree with the assessment and plan as stated. Subjective Patient seen and examined in 322-1. Feeling well today, with minimal surgical site pain. Walking and participating in therapy without issue. Fontenot catheter removed. Passing flatus, no bowel movement. No fever, chills, headache, lightheadedness, nausea, vomiting, abdominal pain, dysuria or diarrhea. Review of Systems Review of Systems: At least ten systems reviewed and negative except as noted in the HPI. Physical Exam Physical Exam: Gen: WD/WN, NAD, sitting in bedside chair, A&Ox3 HEENT: Normocephalic, atraumatic, conjunctivae moist, sclerae anicteric, mucous membranes moist Lung: Clear to Auscultation bilaterally, no wheezes/rales/rhonchi Heart: Regular rate, regular rhythm, no murmurs, rubs, or gallops Abdomen: Soft, NT, ND +BS x 4 Extremities: Spinal dressing c/d/i. KEERTHI drain visualized. No edema Skin: Warm, no rash Results & Data Results & Data ([facility]) Vital Signs (Past 12 Hours) Vital Signs Temp Pulse Pulse Resp BP Pulse Ox 03/19/21 07:44 36.6 C 63 18 143/76 H 98 03/18/21 22:44 36.8 C 70 18 130/82 96 Laboratory Results Short CBC 03/19/21 Range/Units 05:56 WBC 11.93 H (4.8-10.8) K/uL Hgb 11.6 L (14.0-18.0) g/dL Hct 35.3 L (42-52) % Plt Count 183 (130-400) K/uL BMP 03/19/21 05:56 Sodium 137 Potassium 4.9 Chloride 105 Carbon Dioxide 29 BUN 30 H Creatinine 1.51 H D Glucose 134 H Calcium 8.8 Diagnostic Findings Lumbar Spine X-Ray 03/17/21 07:15 FL lumbar spine 2-3V CLINICAL HISTORY: L3-L5 decompression and fusion. COMPARISON STUDY: None. FLUOROSCOPY TIME: 23 seconds. FLUOROSCOPIC IMAGES: 2 FINDINGS: Fluoroscopy was provided during L3-L4 and L4-L5 discectomies with interbody spacer placement. Posterior decompression and bilateral pedicle screw fusion from L3 through L5 is noted. Hardware is intact. IMPRESSION: Fluoroscopy provided during L3-L5 discectomies, posterior decompression and bilateral pedicle screw fusion. ACT 112: Negative or not required by law. Electronically signed by: Delbert Brock M.D. 03/17/2021 10:37 AM
[2021-03-19] MEDS: ASPIRIN 81 MG ECTAB PO SCH (08:56)
[2021-03-19] MEDS: lisinopril 5 MG TAB PO SCH (08:56)
[2021-03-19] MEDS: CYANOCOBALAMIN 500 MCG TABLET (VITAMIN B-12) PO SCH (08:56)
[2021-03-19] MEDS: CHOLECALCIFEROL 1,000 UNITS 25 MCG TAB PO SCH (08:56)
[2021-03-19] MEDS: dexAMETHasone 6 MG in SYRINGE 0 ML IV SCH (08:56)
[2021-03-19] MEDS: INSULIN HUMAN NPH SC SCH (08:57)
[2021-03-19] MEDS: INSULIN ASPART PER UNIT SC SCH ×4 (09:07→21:20)
--- NOTE | 2021-03-19 11:11 | Pharmacy Report ---
Pharmacy Glycemic Short Note 2 - Date of Service March 19, 2021 - Glycemic Short BSG Results (Last 24 hours): 03/18/21 03/18/21 03/18/21 11:56 17:05 20:46 Glucose POC Glucose 204 H 130 H 194 H 03/19/21 03/19/21 05:56 08:11 Glucose 134 H POC Glucose 169 H OUTPATIENT ANTIDIABETIC REGIMEN: * Januvia 100 mg daily * metformin 1000 mg PO BID ASSESSMENT: 03/19/21 * Patient's BSGs yesterday were 690-122-331-194 mg/dL. Fasting today is 169 mg/dL. * Patient received 101 units of insulin yesterday (45 units of NPH plus 56 units of bolus). * Continue NPH. * Tighten CR as BSGs trend upwards after achieving goal BSG. * Patient's kidney injury is improving. Consider restarting oral medications tomorrow if creatinine back at baseline. Background * Mr Butt is a 60 y/o M with a PMH of T2DM on two oral agents who presents for spinal surgery. * He received dexamethasone 4 mg IV intraop and is ordered dexamethasone 6 mg IV daily x 3 days * Patient's BSGs today have been 164-172-219 mg/dL. * Give NPH 40 units (0.4 units/kg) x 1 for steroid hyperglycemia. Ongoing NPH dosing to be determined by response today. * Novolog weight-based stress of 3 PLAN FOR INPATIENT GLYCEMIC CONTROL: * Hold outpatient oral diabetes medications * Basal insulin * NPH 45 units SQ daily with dexamethasone * Bolus insulin * NovoLog per scale ACHS or Q6hrs while NPO * Goal Range: Low 110 mg/dL - High 140 mg/dL * Correction Factor: 15 mg/dL/unit * Nutritional / Prandial insulin per carb ratio of 1 unit per 3 grams CHO consumed PLAN FOR DISCHARGE: * Patient's HbA1C is 7.3% which is slightly above goal range of < 7% for his age and comorbidities. * Recommend close follow-up with PCP to determine appropriate changes.
--- NOTE | 2021-03-19 13:09 | Orthopedic Progress Note ---
Date of Service March 19, 2021 Assessment & Plan (1) Neurogenic claudication due to lumbar spinal stenosis: Plan: At this time we will continue physical therapy monitor his KEERTHI output hopefully discharge home tomorrow. Admission and Anticipated Discharge Date Admission Date: March 17, 2021 Subjective Patient's back pain is controlled leg symptoms markedly improved Physical Exam Physical Exam: On exam he is in a chair at the bedside. Is good strength testing. Appears comfortable. Results & Data ([facility]) Vital Signs (Past 12 Hours) Vital Signs Temp Pulse Resp BP Pulse Ox 03/19/21 07:44 36.6 C 63 18 143/76 H 98
[2021-03-19] MEDS ORDERED: hydrALAZINE HCL 20 MG/ML VIAL IV PRN (13:38)
[2021-03-19] MEDS: DOCUSATE SODIUM/SENNA 50/8.6MG TAB PO SCH (21:23)
[2021-03-19] MEDS: ROSUVASTATIN CALCIUM 20 MG TAB PO SCH (21:23)
[2021-03-20] MEDS: HYDROmorphone INJ 1 MG/ML SYRINGE IV PRN (00:18)
[2021-03-20] MEDS: POLYETHYLENE (MIRALAX) 17 GM PACK PO SCH (06:10)
[2021-03-20 07:16] LABS: Hematocrit (blood only) 36.2 % (42-52); Hemoglobin 12.1 g/dL (14.0-18.0); Mean Corpuscular Hgb Conc 33.4 g/dL (32-36); Mean Corpuscular Volume 86.8 fL (80-100); Mean Platelet Volume 10.1 fL (7.4-10.4); Platelet Count 201 K/uL (130-400); RDW Coefficient of Variation 13.4 % (11.5-14.5); RDW Standard Deviation 42.4 fL (36.4-46.3); Red Blood Count 4.17 M/uL (4.7-6.1); White Blood Count 12.19 K/uL (4.8-10.8)
[2021-03-20 07:54] LABS: BUN Creatinine Ratio 20.1 (10-20); Calcium 8.9 mg/dl (8.5-10.1); Creatinine Clr Calc Pharmacy 73.7 ml/min; Est GFR (African American) 75.5 ml/min; Est GFR (Non-African American) 65.1 ml/min; Potassium 4.6 mmol/L (3.5-5.1)
[2021-03-20] MEDS: dexAMETHasone 6 MG in SYRINGE 0 ML IV SCH (08:58)
[2021-03-20] MEDS: ASPIRIN 81 MG ECTAB PO SCH (08:58)
[2021-03-20] MEDS: CYANOCOBALAMIN 500 MCG TABLET (VITAMIN B-12) PO SCH (08:58)
[2021-03-20] MEDS: CHOLECALCIFEROL 1,000 UNITS 25 MCG TAB PO SCH (08:58)
[2021-03-20] MEDS: INSULIN HUMAN NPH SC SCH (08:59)
[2021-03-20] MEDS: INSULIN ASPART PER UNIT SC SCH (09:05)
--- NOTE | 2021-03-20 11:15 | Discharge Summary ---
Date of Service March 20, 2021 Admission HPI Per Admitting Provider This is a 60-year-old male who presents with marked decline in status with consistent back and right leg pain. Has been progressive the past several years. Is failed extensive course of nonoperative care. He can only stand ambulate for very short period of time before he must sit secondary to leg pain and weakness. Principal Diagnosis Lumbar spinal stenosis with neurogenic claudication Discharge Data Allergies Allergy/AdvReac Type Severity Reaction Status Date / Time bee venom protein (honey bee) Allergy Severe Anaphylaxis--YELLOW Verified 03/17/21 05:57 JACKETS shellfish derived Allergy Severe THROAT Verified 03/17/21 05:57 SWELLS, HIVES, RASH erythromycin base AdvReac Mild nausea and Verified 03/17/21 05:57 vomiting Consultations 03/17/21 12:53 Consult Hospitalist Routine Procedures Performed Operation Date: 03/17/21 07:15 Actual Procedures p L3-L5 Decompression and Fusion, Spinal Cord Monitoring(Not Applicable) - Ashish Cooney DO Ordered Studies 03/17/21 07:15 FL lumbar spine 2-3V Routine Hospital Course (1) Neurogenic claudication due to lumbar spinal stenosis: Patient with lumbar decompression fusion tolerates well second orthopedic for possibly. Postop day 1 he was up and ambulating progressed postop day #2 postop day #3 KEERTHI drain had decreased appropriately. Excellent strength testing. Pain well controlled. Subsequently discharged home. Discharge orders instructions from the chart for further review. Total Time Total Time Spent Total Time Spent (In Minutes): 20 minutes Discharge Plan Discharge Items Patient Disposition: Home - Self-Care Reason For Visit: Spinal Stenosis, Lumbar Region with Neurogenic Cla Discharge Diagnosis: Lumbar spinal stenosis with neurogenic claudication Activity: As commented below Non-emergency contact: Primary Care Provider Call non-emergency contact if: you have any medication questions Follow-up/Referrals: Eboni Peralta DO [Primary Care Provider] - Diet: Regular Addtl Attending Provider Instructions: ACTIVITY RECOMMENDATIONS: SELF CARE INSTRUCTIONS AFTER THORACIC/LUMBAR FUSIONS 1. You may walk to your tolerance. It is good exercise for your legs and back. Expect some back and intermittent leg aches and pains. 2. You may perform "counter-top" level activities (make a sandwich, neil with a project, etc.). 3. No bending or lifting of more than 10 pounds or back twisting of any nature (roll like a log when turning in bed). 4. You may ride in a car for 20-30 minutes at a time. No driving until after your first visit with your doctor. 5. Frequent changes of position and restricting sitting to 30 minutes at a time will help limit the amount of back spasms and stiffness you may experience. 6. You may discontinue the use of ambulatory aids (cane, crutches, etc.) once your strength and confidence allow. 7. You may forging roll operator the shower and let water strike your incision when you arrive home at least once daily. Do not take a tub bath, sit in a hot tub or go into a swimming pool until after your first recheck in the office. SPECIAL CARE INSTRUCTIONS: VERY IMPORTANT TO READ AND REVIEW A. Your surgical incision has been closed with a cosmetic suture under the skin that will dissolve in about 6 weeks. In 14 days, you can use a pair of clean scissors and cut the suture that is left outside of the skin at the ends of your incision. 1. The small skin tapes can be removed 7 days after surgery if they have not fallen off by that point. 2. You may keep the wound open to air as much as possible to promote healing after post-op day number 5 unless told otherwise by your doctor. 3. If you think the wound looks like it is becoming infected (redness or worsening drainage) and/or you are experiencing fever, chill or worsening back pain and muscle spasms, contact the office so that we may evaluate you as soon as possible. B. Complications are uncommon, but please contact us if you have any signs or symptoms of: 1. wound infection (fever higher than 102.5 degrees F, redness, separation of wound, drainage, or increasing pain from the incision) 2. blood clots in legs (pain, swelling, redness and warmth in legs) 3. urinary tract infection (fever higher than 102.5 degrees F, burning upon urination or increased frequency of urination) 4. nerve problems (inability to walk on your toes or heels, numbness, loss of bowel or bladder control) 5. any other symptoms that concern you C. Please call the office at if you have any concerns or questions about your operation or recovery. D. No smoking! Smoking drastically decreases the chance of a solid fusion. E. Do not take any anti-inflammatory medications (Indocin, Advil, Motrin, Aspirin, Naprosyn, etc.) as these may inhibit the chance of a solid fusion. Tylenol is okay to take for pain. MANAGING PAIN AFTER SPINAL SURGERY 1. Narcotic medication is intended for short-term use and will be provided for surgical pain. Surgical pain usually lasts for a period of 4-6 weeks. Narcotic medication includes Percocet, Vicodin, Darvocet, Tylenol #3 or Lortab. 2. Longer-term pain is more appropriately treated with non-narcotic medication such as Tylenol ES. 3. Muscle spasm is not appropriately treated with narcotics. Muscle relaxers such as Soma, Flexeril or Skelaxin can be used along with Tylenol ES. 4. Remember that we all live with some "aches and pains". This is not unusual or uncommon after an injury or as we get older. a. Back pain is expected and may include muscle spasms for 4 to 6 weeks after surgery. The pain should gradually improve. If the pain worsens for no apparent reason, please contact the office. b. Intermittent leg pain may also be experienced and should not be concerned about unless it worsens for no apparent reason. If so, please contact the office. 5. We will provide appropriate medication within the normal guidelines of their prescribed use. We will also be very cautious and aware of potential abuse and extended duration of patients' medication needs. a. Pain medications are for your comfort and to assist with sleep and rest so that the tissue can heal. They are not provided in order to return to normal activity and should not be used through the day. To do so or worsening pain at night can result from ongoing tissue damage and development of tolerance to the prescribed medicine. 6. Please allow 2-3 days to process refills. Prescriptions will not be mailed but must be picked up at the office. FOLLOW UP VISIT: Keep your scheduled follow-up appointment. Any questions, please call the office at . Pending Studies at Discharge: No Stand-Alone Forms: My [employer], Smoking Cessation Medications and DC Order Prescriptions: New tramadol 50 mg tablet 50 mg PO Q6H PRN (Reason: pain, moderate) Qty: 30 RF: 0 oxycodone 5 mg tablet 5 mg PO Q6H PRN (Reason: pain, severe) Qty: 30 RF: 0 Continued metformin 1,000 mg tablet 1,000 mg PO BID RF: 0 rosuvastatin 20 mg tablet 20 mg PO HS RF: 0 cyanocobalamin (vitamin B-12) [Vitamin B-12] 1,000 mcg Tablet Extended Release 1,000 mcg PO QAM RF: 0 Januvia 100 mg Tablet 100 mg PO QAM RF: 0 cholecalciferol (vitamin D3) [Vitamin D3] 25 mcg (1,000 unit) Tablet,Chewable 25 mcg PO QAM RF: 0 melatonin 1 mg/mL Liquid 3 mg PO HS PRN (Reason: Sleep) RF: 0 acetaminophen PRN (Reason: Pain) RF: 0 aspirin 81 mg PO DAILY RF: 0 lisinopril 5 mg tablet 5 mg PO DAILY RF: 0 Discharge Orders: Discharge Order (Routine); Ordered 03/20/21 Ordered By: Ashish Cooney Admission Data Admit Date/Time: 03/17/21 10:03 Attending Provider: Ashish Cooney Admit Provider: Ashish Cooney Primary Care Provider: Eboni Peralta Other Providers: Virginie Owusu
[2021-03-20] MEDS: oxyCODONE HCL IR 5 MG TAB (IMMEDIATE RELEASE) PO PRN (12:16)
--- NOTE | 2021-03-20 14:02 | Hospitalist Progress Note ---
Date of Service March 20, 2021 Assessment & Plan (1) Status post lumbar surgery: Plan: Post op day# 3 S/P L2-L5 decompression, L2-L5 fusion by Dr Ivet PICKETT#250 mL Per ortho for pain control, wound care, anticoagulation and activities Continue incentive spirometry, PT/OT when appropriate (2) Postoperative anemia due to acute blood loss: Plan: Hgb 11.6 (11.7 [id number] hgb 15) in post op setting Asymptomatic Monitor with daily CBC (3) Diabetes mellitus, type II: Plan: A1c: 7.3 on 02/2021 Hold home meds Basal bolus insulin per protocol. Glycemic pharmacy on board and managing, appreciate management (4) CAD (coronary artery disease): Plan: S/P CABG in 04/2020 Denies chest pain, shortness of breath Continue aspirin, rosuvastatin, lisinopril (5) Acute kidney injury superimposed on CKD: Plan: Cr 1.21 today (improved from 2.34 prior) in post-op setting Baseline Cr:1.1 Hold lisinopril, Toradol discontinued Resolved (6) Hypertension: Plan: can continue lisinopril now that FABIOLA resolved (7) Hyperlipidemia: Plan: Continue rosuvastatin DVT Prophylaxis SCDs per ortho Disposition per primary service Follows with Dr Eboni Peralta for routine care Admission and Anticipated Discharge Date Admission Date: March 17, 2021 Subjective Patient sitting up in bed, NAD, no new acute events overnight. On room air. Denies fever/headache/chills/chest pain/palpitation/other review of symptoms. Physical Exam Physical Exam: GENERAL: Alert and oriented x3. NAD, on RA. HEENT: No pallor, no icterus. Pupils equal, round and reactive to light. Oral mucosa moist. NECK: No JVD, no neck masses. HEART: S1 and S2 heard. Regular rate and rhythm. No murmur, no gallop. RESPIRATORY SYSTEM: Normal AP diameter. No accessory muscle use. No wheezing, no crackles. ABDOMEN: Soft, bowel sounds present, nontender, no distention. CENTRAL NERVOUS SYSTEM: No facial droop. Speech is clear. Obeys simple commands. Moves extremities. EXTREMITIES: No edema, no erythema seen. Lower back with clean dressing with KEERTHI drain in situ. Results & Data Results & Data ([facility]) Vital Signs (Past 12 Hours) Vital Signs Temp Pulse Pulse Resp BP BP Pulse Ox 03/20/21 11:35 36.5 C 63 70 18 142/80 H 128/83 97
[2021-03-21] MEDS ORDERED: INSULIN HUMAN NPH SC SCH (09:00)
== END 2021-03-20 13:04 | disposition home or self-care (01) | DRG 454 ==
LOC: ASU 05:42 → PACUINP 10:03 → 3E 12:44

== ENCOUNTER 2022-08-22 08:28 | Inpatient (IN) ==
--- NOTE | 2022-07-29 14:27 | PAT Medication Instructions ---
Medication Instructions Date of Service July 29, 2022 Home Medications metformin 1,000 mg tablet 1,000 mg PO BID rosuvastatin 20 mg tablet 20 mg PO QAM cholecalciferol (vitamin D3) 25 mcg (1,000 unit) chewable tablet (Vitamin D3) 25 mcg PO QAM cyanocobalamin (vitamin B-12) 1,000 mcg tablet,extended release (Vitamin B-12 ER) 1,000 mcg PO QAM aspirin 81 mg PO QAM lisinopril 5 mg tablet 5 mg PO QAM acetaminophen 325 mg tablet (Tylenol) 325 mg PO QID PRN Pain (if needed) semaglutide 0.25 mg or 0.5 mg (2 mg/1.5 mL) subcutaneous pen injector (Ozempic) 0.5 mg subcut WK Continue as directed semaglutide 0.25 mg or 0.5 mg (2 mg/1.5 mL) subcutaneous pen injector (Ozempic) 0.5 mg subcut WK ASK your surgeon for instructions aspirin 81 mg PO QAM DO NOT take the morning of surgery metformin 1,000 mg tablet 1,000 mg PO BID cholecalciferol (vitamin D3) 25 mcg (1,000 unit) chewable tablet (Vitamin D3) 25 mcg PO QAM cyanocobalamin (vitamin B-12) 1,000 mcg tablet,extended release (Vitamin B-12 ER) 1,000 mcg PO QAM lisinopril 5 mg tablet 5 mg PO QAM Take morning of surgery With a small sip of water, OTHERWISE NOTHING TO EAT OR DRINK AFTER MIDNIGHT: rosuvastatin 20 mg tablet 20 mg PO QAM acetaminophen 325 mg tablet (Tylenol) 325 mg PO QID PRN Pain (if needed) Take evening before surgery metformin 1,000 mg tablet 1,000 mg PO BID acetaminophen 325 mg tablet (Tylenol) 325 mg PO QID PRN Pain (if needed) Other Notes If you have any questions please call us at [phone] or [phone] or [phone] or [phone]
--- NOTE | 2022-08-08 09:43 | Anesthesiology Consultation ---
Date of Service August 08, 2022 Assessment & Plan (1) Encounter for pre-operative examination: - awaiting surgeon ordered medical clearance. - check BSG am DOS. - Case discussed with Dr. Mccoy in detail who advised pt does not need cardiology clearance prior to surgery from his standpoint. - cardiology 07/04/22: "...overall doing well. Previous and recent tests results and medical options were thoroughly reviewed...continue routine care and follow up..." Chart Review Chart Review: Pending: Refer to Additional Notes / Consult section and Patient seen in Pre Admission Testing Teaching & Discussion Pre-Anesthesia Teaching/Discussion Notes: Instructed NPO after midnight before surgery, except medications with 15 cc of water. Medication instructions provid ed according to the PAT guidelines. History Surgery Operation Date: 08/22/22 10:15 Proposed Procedures p L2-L3 Decompression and Fusion (Attach to Existing L3-L5 Hardware), Spinal Cord Monitoring - Ashish Cooney, Height/Weight Height: 5 ft 6 in Weight: 101.5 kg Allergies Allergy/AdvReac Type Severity Reaction Status Date / Time bee venom protein (honey bee) Allergy Severe Anaphylaxis--YELLOW Verified 07/29/22 09:05 JACKETS shellfish derived Allergy Severe anaphylaxis Verified 08/08/22 09:39 erythromycin base AdvReac Mild nausea and Verified 07/29/22 09:05 vomiting Medications Home Medications Medication Instructions Recorded Confirmed Last Taken metformin 1,000 mg tablet 1,000 mg PO BID 11/17/19 07/29/22 03/15/21 18:00 rosuvastatin 20 mg tablet 20 mg PO QAM 11/17/19 07/29/22 03/15/21 18:00 cholecalciferol (vitamin D3) 25 25 mcg PO QAM 02/18/21 07/29/22 03/15/21 mcg (1,000 unit) chewable tablet (Vitamin D3) cyanocobalamin (vitamin B-12) 1,000 mcg PO QAM 02/18/21 07/29/22 03/15/21 1,000 mcg tablet,extended release (Vitamin B-12 ER) aspirin 81 mg PO QAM 02/19/21 07/29/22 03/15/21 08:00 lisinopril 5 mg tablet 5 mg PO QAM 03/17/21 07/29/22 03/16/21 acetaminophen 325 mg tablet 325 mg PO QID PRN Pain 07/29/22 07/29/22 Unknown (Tylenol) semaglutide 0.25 mg or 0.5 mg (2 0.5 mg subcut WK 07/29/22 07/29/22 Unknown mg/1.5 mL) subcutaneous pen injector (Ozempic) Past Medical History Medical History (Updated 08/08/22 @ 10:02 by Carmel Cortez PA-C) CAD (coronary artery disease) s/p 3 vessel CABG 05/2020, [facility] CKD (chronic kidney disease), stage III following with [facility] nephrology. 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 Spinal stenosis Steatosis of liver in [facility] records, pt unaware, denies previous LFT testing Patient denies h/o stroke, seizures, heart failure, blood clots or blood transfusions. Exercise / Class Metabolic Activity II 4-5 Yardwork/Stairs/Walk up hill (denies chest discomfort or shortness of breath with 1 FOS) Past Surgical History Surgical History Hx of CABG x3-05/2020-[facility] in [place] Hx of cardiac cath 04/2020 d/t anterior cervical discectomy and fusion post-op EKG dx with inferior infarct: left main: 70-80% stenosis LAD: ostial 60-70% and diagonal branch 90% stenosis left Cx: ostial 90% stenosis RCA: proximal and mid 70-80% stenosis Hx of cervical spine surgery 04/2020 C5-7 - complicated by inferior infarct per [facility] records-subsequent cath and CABG Hx of colonoscopy Hx of hand surgery Toni contracture and trigger finger Status post lumbar surgery 03/17/21 posterior L3-L5 decompression and fusion Grade 1 view, glidescope 3, ETT 8. Past Anesthesia History No Family Hx of Anesthesia Complications and Other (al-operative IN) History of PONV No Hx of PONV and No Hx of Motion Sickness Social History Smoking Status: Former smoker tobacco type: cigarettes Do You Dip or Chew Tobacco: No Smoking End Date: > 20 years ago Hx Alcohol Use: Yes (rare) alcohol intake frequency: holidays/special occasions only Hx Substance Use: No substance use type: does not use Review of Systems Snoring, denies witnessed apneas. Patient denies chest pain, shortness of breath, dyspnea on exertion, reflux, fever, chills, cough, wheezing, or palpitations. Physical Exam Vital Signs Vitals BP 150/81 P 77 TEMP 98.4 SP02 95% on RA RESP 17 Physical Full cervical extension range of motion without pain TMD < 3 finger breadths Mallampati Score 3 Dentition: multiple caps; denies chipped or loose teeth, implants or bridges Lungs: normal respiratory effort. Good air movement, clear throughout to auscultation, no adventitious breath sounds Cardiac: regular rate and rhythm, no murmurs noted Carotid arteries: negative bruit bilat Lab Results Anesthesia Preop Results Results Anesthesia Widget: WBC 6.34 K/ul (4.8-10.8) 08/08/22 Hgb 14.6 g/dl (14.0-18.0) 08/08/22 Hct 43.1 % (42.0-52.0) 08/08/22 Plt 225 K/uL (130-400) 08/08/22 Na 136 mmol/L (136-145) 08/08/22 K 4.5 mmol/L (3.5-5.1) 08/08/22 Cl 105 mmol/L (98-107) 08/08/22 CO2 27 mmol/L (21-32) 08/08/22 BUN 17 mg/dl (6-23) 08/08/22 Creat 1.41 mg/dl (0.6-1.4) H 08/08/22 Glucose Level 146 mg/dl (70-99(Fasting)) H 08/08/22 PT 10.6 Seconds (9.0-12.0) 08/08/22 PTT 26.5 Seconds (21.0-31.0) 08/08/22 INR 1.0 (0.9-1.1) 08/08/22 HA1c 7.1 % (4.5-5.6) H 08/08/22 Urine Color Yellow 08/08/22 Urine Appearance Clear (Clear) 08/08/22 Urine pH 5.5 (4.5-7.5) 08/08/22 Urine Specific [place] 1.017 (1.000-1.030) 08/08/22 Urine Protein 1+ (Negative) H 08/08/22 Urine Glucose (UA) Negative (Negative) 08/08/22 Urine Ketones Negative (Negative) 08/08/22 Urine Blood 1+ (Negative) H 08/08/22 Urine Nitrite Negative (Negative) 08/08/22 Urine Bilirubin Negative (Negative) 08/08/22 Urine Urobilinogen Negative (Negative) 08/08/22 Urine Leukocyte Esterase Negative (Negative) 08/08/22 Urine WBC (Auto) 1-5 /hpf (0-5) 08/08/22 Urine RBC (Auto) 0-4 /hpf (0-4) 08/08/22 Urine Hyaline Casts (Auto) 0 /lpf (0-5) 08/08/22 Urine Epithelial Cells (Auto) 0-5 /lpf (0-5) 08/08/22 Urine Bacteria (Auto) Negative (Negative) 08/08/22 Blood Type O Positive 08/08/22 Antibody Screen NEGATIVE 08/08/22 Testing Electrocardiogram Date: 07/04/22 NSR, rate 71 bpm Echocardiogram Date: 06/25/20 Mild to moderate cLVH. EF 70-75%. Normal left ventricular size, wall dimension and systolic function. No wall motion abnormalities. Normal diastolic function. No significant valvular stenosis or regurgitation. No PFO/ASD identified. Estimated PA systolic pressure is normal. Cardiac Catheterization Date: 05/04/20 Left main: diffuse disease that tapers into 70-80% stenosis LAD: ostium 60-70% stenosis and 99% stenosis 1st diagonal branch Left Cx: Ostial 90% stenosis RCA: proximal and mid 70-80% stenosis Impression/plan: Multivessel and left main coronary artery disease as described above Normal LVEDP CT surgery evaluation for consideration for coronary artery bypass graft surgery Other Testing Chest CT 07/29/22 Stable size of a few solid nodules in the right lung measuring up to 7 mm (mean diameter) in the lower lobe. These are unchanged since 10/19/2021 and are likely benign. The patient can resume annual low-dose CT lung cancer screening. Carotid doppler 05/04/22 Less than 50% stenosis COVID-19 Risk Screen Screening Information COVID-19 Screen Date: 08/08/22 Exposure 21 Days Family/Household +COVID Last 21 Days: No Exposure 10 Days Any COVID Exposure Last 10 Days: No Symptoms Last 10 Days Experienced COVID Sx Last 10 Days: No + COVID 0-90 Days COVID + in Last 0-90 Days: No
[~2022-08-22 08:28] MED LIST: ACETAMINOPHEN 500 MG TAB PO SCH; CLINDAMYCIN/D5W 900 MG/50 ML BAG IV SCH; CeleBREX 200 MG CAP PO SCH; DEXAMETHASONE SOD INJ 4 MG/ML VIAL ONE; GABAPENTIN 600 MG DOSE PO SCH; GLYCOPYRROLATE 0.2 MG/ML VIAL ONE; LIDOCAINE 2% 2 ML VIAL/AMP(20MG/ML) INFIL ONE; LR 15ML/HR IV SCH; NEOSTIGMINE METHYLSULFATE 1 MG/ML 10ML VIAL ONE; ONDANSETRON INJ 2 MG/ML 2 ML VIAL ONE; PROPOFOL IV EMULSION 10 MG/ML 20 ML VIAL IV ONE
[2022-08-22] MEDS ORDERED: MIDAZOLAM HCL 1 MG/ML 2ML VIAL ONE (08:30)
[2022-08-22] MEDS ORDERED: fentaNYL citrate PF 100 MCG/2 ML VIAL ONE (08:30)
--- NOTE | 2022-08-22 09:15 | History & Physical Bridge Note ---
Date of Service August 22, 2022 History & Physical Bridge Note I have examined the patient, reviewed the History & Physical and in the interval since the performance of the History & Physical I have noted the following changes of clinical significance: no changes noted
--- NOTE | 2022-08-22 09:16 | History & Physical Report ---
Date of Service August 22, 2022 Assessment & Plan (1) Neurogenic claudication due to lumbar spinal stenosis: Plan: L2-L3 decompression and fusion, attached to existing L3 L5 hardware versus hardware removal History of Present Illness Chief Complaint: back and leg pain Primary Care Provider: Eboni Peralta DO This is a 62-year-old male who presents with chronic persistent back and leg pain after failing extensive course of nonoperative care is here for surgical intervention. Allergies Allergy/AdvReac Type Severity Reaction Status Date / Time bee venom protein (honey bee) Allergy Severe Anaphylaxis--YELLOW Verified 08/22/22 08:51 JACKETS shellfish derived Allergy Severe anaphylaxis Verified 08/22/22 08:51 erythromycin base AdvReac Mild nausea and Verified 08/22/22 08:51 vomiting Home Medications Medication Instructions Recorded Confirmed Type metformin 1,000 mg tablet 1,000 mg PO BID 11/17/19 08/22/22 History rosuvastatin 20 mg tablet 20 mg PO QAM 11/17/19 08/22/22 History cholecalciferol (vitamin D3) 25 25 mcg PO QAM 02/18/21 08/22/22 History mcg (1,000 unit) chewable tablet (Vitamin D3) cyanocobalamin (vitamin B-12) 1,000 mcg PO QAM 02/18/21 08/22/22 History 1,000 mcg tablet,extended release (Vitamin B-12 ER) aspirin 81 mg PO QAM 02/19/21 08/22/22 History lisinopril 5 mg tablet 5 mg PO QAM 03/17/21 08/22/22 History acetaminophen 325 mg tablet 325 mg PO QID PRN Pain 07/29/22 08/22/22 History (Tylenol) semaglutide 0.25 mg or 0.5 mg (2 0.5 mg subcut WK 07/29/22 08/22/22 History mg/1.5 mL) subcutaneous pen injector (Ozempic) Past Med/Surg History Medical History CAD (coronary artery disease) s/p 3 vessel CABG 05/2020, [facility] CKD (chronic kidney disease), stage III following with [facility] nephrology. 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 Spinal stenosis Steatosis of liver in [facility] records, pt unaware, denies previous LFT testing Surgical History Hx of CABG x3-05/2020-[facility] in [place] Hx of cardiac cath 04/2020 d/t anterior cervical discectomy and fusion post-op EKG dx with in ferior infarct: left main: 70-80% stenosis LAD: ostial 60-70% and diagonal branch 90% stenosis left Cx: ostial 90% stenosis RCA: proximal and mid 70-80% stenosis Hx of cervical spine surgery 04/2020 C5-7 - complicated by inferior infarct per [facility] records-subsequent cath and CABG Hx of colonoscopy Hx of hand surgery Toni contracture and trigger finger Status post lumbar surgery 03/17/21 posterior L3-L5 decompression and fusion Grade 1 view, glidescope 3, ETT 8. Social History Smoking Status: Former smoker Tobacco Type: Cigarettes Smoking End Date: > 20 years ago; Second Hand Exposure: No; Do You Dip or Chew Tobacco: No; Tobacco Cessation Education Requested by Patient: No Hx Alcohol Use: Yes (rare) Hx Substance Use: No Preferred Language: Lao Communication Ability: Effective Records Management Technician Required: No Beliefs That Will Affect Care: None marital status: Current Living Situation: Spouse How many Children do You have: 2 Feels Safe at Home: Yes Safety Concerns: Feels Safe At This Time Assistive Devices: Glasses Assistive Devices Comment: glasses for reading Physical Exam Physical Exam: Patient is alert and oriented Heart regular rhythm Lungs clear Results & Data Results & Data Vital Signs (Past 12 Hours) Vital Signs Temp Pulse Resp BP Pulse Ox O2 Del Method 08/22/22 09:10 36.6 C 70 18 150/103 H 97 Room Air
[2022-08-22] MEDS ORDERED: ONDANSETRON INJ 2 MG/ML 2 ML VIAL IV PRN ×2 (09:30→13:38)
[2022-08-22] MEDS ORDERED: ATROPINE SULFATE 0.1 MG/ML 10ML SYR IV PRN (09:30)
[2022-08-22] MEDS ORDERED: ePHEDrine sulfate 50 MG/ML AMP IV PRN (09:30)
[2022-08-22] MEDS ORDERED: ceFAZolin 330 MG/ML 1 GM VIAL ONE (09:33)
[2022-08-22] MEDS ORDERED: BUPIVACAINE/EPINEPHRINE 0.25% 1:200,000 30 ML VIAL ONE (09:39)
[2022-08-22] MEDS ORDERED: HYDROmorphone INJ 2 MG/ML SYR/VIAL ONE (10:11)
[2022-08-22] MEDS ORDERED: FLOSEAL HEMOSTATIC MATRIX 10ML TOP ONE ×2 (10:32→11:25)
[2022-08-22] MEDS ORDERED: SUGAMMADEX SODIUM 200 MG/2 ML VIAL IV ONE (10:48)
[2022-08-22] MEDS ORDERED: GLYCOPYRROLATE 0.2 MG/ML VIAL ONE (10:48)
[2022-08-22] MEDS ORDERED: PHENYLEPHRINE HCL 10 MG/ML VIAL ONE (10:49)
[2022-08-22] MEDS ORDERED: ROCURONIUM BROMIDE 10 MG/ML 5 ML VIAL IV ONE (11:00)
--- NOTE | 2022-08-22 11:35 | Operative Report ---
Post Operative Report Pre & Post Diagnosis Operation Date: 08/22/22 10:05 Pre-Op Diagnosis: Neurogenic claudication due to lumbar spinal stenosis Post-Op Diagnosis: Neurogenic claudication due to lumbar spinal stenosis I identified the patient and participated in the time-out.: Yes Procedure Operation Date: 08/22/22 10:05 Actual Procedures 1. Removal of posterior instrumentation L3-L5. #2 exploration of fusion L3-5. #3 lumbar decompression with bilateral medial facetectomies and foraminotomies L1-L2 L2-L3. #4 posterior spinal fusion L2-L3. #5 placement posterior instrumentation L2-L5. #6 interbody fusion L2-L3. #7 placement of Spira 13 x 26 mm at L2-L3. #8 placement locally harvested morselized autograft in the posterior gutters. #9 placement of I factor combined the test interbody space and posterior lateral gutters. Surgeon Ashish Cooney, DO Orthotics Technician Michael Treviño Estimated Blood Loss 200 Findings See Below The patient is 5 foot 6 weighing over 90 kg with a BMI in excess of 34. The patient's body habitus did contribute to significant technical difficulty required deeper retractors longer instruments in order to perform his procedure. This at least 50% increased operative time. Specimens none Indications This is a 62-year-old male who presents above-mentioned diagnosis after failing course of nonoperative care is here for surgical invention. Description of Procedure Patient was met with identified informed consent obtained. Patient was then taken to the operative suite underwent patient placed in a prone position on the Bo table top of the Akshat frame. All bony promises well-padded eyes inspected to ensure no external pressure placed upon them. This point the lumbar spine was prepped and draped normal sterile fashion. Sharp dissection with the assistance of Bovie cautery form down to and exposing the lamina transverse processes of L2 and instrumentation at L3 L4-5 bilaterally. And then proceeded move the hardware bilaterally explore the fusion mass noting it to be mature and intact. Then performed complete laminectomy of L2 partial laminectomy of L1 including bilaterally facetectomies and foraminotomies addressing severe spinal stenosis. Pedicle screws then placed in L2-L3 and L5 bilaterally with assistance of fluoroscopy and the proper sized nella placed. By way the transforaminal approach on the right complete discectomy of L2-L3 was performed endplates curetted to subcortical any bone and a 13 x 26 mm spiral cage with I factor tapped the position. The rods were then locked in final position bilaterally. The transverse processes of L2 and L3 burred to subcortical bleeding bone. I factor amount of the test and locally harvested morselized autograft was placed in the posterior gutters. 15 round KEERTHI drain inserted. The incision was then closed with 1 Vicryl the fascia 2-0 Vicryl subcutaneously and 4 Monocryl for final skin closure. Steri-Strips sterile dressing placed. Patient waken taken to PACU in stable condition. Please note spinal cord monitoring utilized at the procedure no changes noted. Lastly Michael Treviño was present at the entire surgery and while the patient positioning complex portions of the surgery and final skin closure. I attest to the content of the Intraoperative Record and any orders documented therein. Any exceptions are noted below.
[2022-08-22] MEDS: fentaNYL citrate PF 100 MCG/2 ML VIAL IV PRN ×4 (12:10→12:25)
[2022-08-22] MEDS: HYDROmorphone INJ 1 MG/ML SYRINGE IV PRN ×4 (12:30→12:45)
--- NOTE | 2022-08-22 13:17 | Fluoroscopy Report ---
FL lumbar spine 2-3V CLINICAL HISTORY: L2-L3 DECOMPRESSION/FUSION COMPARISON STUDY: 03/17/2021 FLUOROSCOPY TIME: 10 seconds FLUOROSCOPY IMAGES: 2 EXPOSURE DOSE: 6.03 mGy FINDINGS: Posterior interbody nella and screw fusion hardware is noted at what appears to be L2-L5 leve ls with prior screw removal at the L4 level. Discectomy changes at L2-L3, L3-L4 and L4-L5. Hardware a ppears intact. No unexpected opaque foreign bodies. Multilevel spondylitic spurring. Note that the im ages were submitted following completion of the surgery. IMPRESSION: Fluoroscopic assistance as above. ACT 112: Negative or not required by law. Electronically signed by: Tristen Cardenas M.D. 08/22/2022 1:16 PM
[2022-08-22] MEDS ORDERED: PHARMACY GLYCEMIC MGMT CONSULT PRN (13:38)
[2022-08-22] MEDS ORDERED: DO NOT ADMINISTER PNEUMOCOCCAL VACCINE PRN (13:38)
[2022-08-22] MEDS ORDERED: MAGNESIUM HYDROXIDE SUSP 30 ML UDC PO PRN (13:38)
[2022-08-22] MEDS ORDERED: hydrOXYzine HCl 25 MG TAB PO PRN (13:38)
[2022-08-22] MEDS ORDERED: ALUMINUM/MAGNESIUM SUSP 30 ML UDC PO PRN (13:38)
[2022-08-22] MEDS ORDERED: METOCLOPRAMIDE HCL INJ 5 MG/ML 2 ML VIAL IV PRN (13:38)
[2022-08-22] MEDS ORDERED: LORazepam 2 MG/1 ML VIAL IV PRN (13:38)
[2022-08-22] MEDS ORDERED: ACETAMINOPHEN 500 MG TAB PO PRN (13:38)
[2022-08-22] MEDS ORDERED: NALOXONE HCL 0.4 MG/1 ML VIAL/CARP IV PRN (13:38)
[2022-08-22] MEDS ORDERED: LORazepam 0.5 MG TAB PO PRN (13:38)
[2022-08-22] MEDS ORDERED: SOD PHOSPHATE/SOD BIPHOSPHATE ENEMA 132 ML BTL PR PRN (13:38)
[2022-08-22] MEDS ORDERED: traMADol HCL 50 MG TABLET PO PRN (13:38)
[2022-08-22] MEDS ORDERED: PROMETHAZINE HCL 12.5 MG in SODIUM CHLORIDE 0.9% 50 ML IV PRN (13:38)
[2022-08-22] MEDS ORDERED: ACETAMINOPHEN 1,000 MG/100 ML VIAL IV PRN (13:38)
[2022-08-22] MEDS ORDERED: FAMOTIDINE 20 MG TAB PO PRN (13:38)
[2022-08-22] MEDS ORDERED: DO NOT ADMINISTER FLU VACCINE PRN (13:38)
[2022-08-22] MEDS ORDERED: diphenhydrAMINE Capsule 25 MG CAP PO PRN (13:38)
[2022-08-22] MEDS ORDERED: ONDANSETRON 4 MG OD TAB PO PRN (13:38)
[2022-08-22] MEDS ORDERED: HYDROmorphone INJ 1 MG/ML SYRINGE IV PRN (13:38)
[2022-08-22] MEDS ORDERED: HYDROmorphone INJ 0.5 MG/0.5 ML SYR IV PRN (13:38)
[2022-08-22] MEDS ORDERED: bisacodyL 10 MG SUPP PR PRN (13:38)
[2022-08-22] MEDS: SODIUM CHLORIDE 0.9% 1000ML 1,000 ML IV SCH ×2 (14:14→21:28)
[2022-08-22] MEDS ORDERED: CARBOHYDRATES FOR HYPOGLYCEMIA PO PRN (14:30)
[2022-08-22] MEDS ORDERED: GLUCOSE 10 TAB/TUBE PO PRN (14:30)
[2022-08-22] MEDS ORDERED: GLUCAGON FOR INJ 1 MG VIAL IM PRN (14:30)
[2022-08-22] MEDS ORDERED: DEXTROSE 50% 50 ML SYRINGE IV PRN (14:30)
[2022-08-22] MEDS ORDERED: GLUCOSE 40% GEL 15 GM TUBE PO PRN (14:30)
--- NOTE | 2022-08-22 14:33 | Pharmacy Report ---
Pharmacy Glycemic Short Note 2 - Date of Service August 22, 2022 - Glycemic Short BSG Results (Last 24 hours): 08/22/22 08/22/22 09:03 11:59 POC Glucose 104 H 153 H OUTPATIENT ANTIDIABETIC REGIMEN: * Metformin 1gm PO BID * Ozempic 0.5mg SQ qFriday * HbA1c: 7.1% (08/08/22) ASSESSMENT: * Mr Butt is a 62yo diabetic M, POD 0 s/p spinal procedure w/ Dr Cooney this morning. * It appears as though patient received DXM 8mg IV x1 dose pre-operatively, which often leads to steroid-induced hyperglycemia. * Pt is ordered daily IV DXM x3 days post-op. * Pt was initiated on SQ basal/bolus insulin on admission. * Pharmacy will continue to follow and adjust regimen as indicated. PLAN FOR INPATIENT GLYCEMIC CONTROL: * Hold outpatient oral diabetes medications * Basal insulin * Lantus 10 units SQ x1 dose * Bolus insulin * NovoLog per scale ACHS or Q6hrs while NPO * Goal Range: Low 110 mg/dL - High 140 mg/dL * Correction Factor: 30 mg/dL/unit * Nutritional / Prandial insulin per carb ratio of 1 unit per 10 grams CHO consumed
--- NOTE | 2022-08-22 15:28 | Anesthesiology Progress Note ---
Date of Service August 22, 2022 Anesthesia Post Procedure Vital Signs Vital Signs: Temp Pulse Pulse Resp BP Pulse Ox O2 Del Method 08/22/22 14:40 36.3 C L 71 16 143/91 H 98 Room Air 08/22/22 14:10 36.4 C L 70 18 142/89 H 100 Nasal Cannula 08/22/22 13:40 36.6 C 71 18 157/94 H 97 Room Air 08/22/22 13:25 36.3 C L 72 20 150/87 H 100 Nasal Cannula 08/22/22 13:15 68 14 144/83 H 97 Nasal Cannula 08/22/22 13:05 36.2 C L 71 14 150/103 H 100 Nasal Cannula 08/22/22 12:55 72 15 145/95 H 100 Nasal Cannula 08/22/22 12:45 65 14 139/89 100 Nasal Cannula 08/22/22 12:35 71 14 149/100 H 100 Nasal Cannula 08/22/22 12:25 72 17 151/103 H 100 Oxymask 08/22/22 12:15 71 14 160/98 H 100 Oxymask 08/22/22 12:05 75 20 149/98 H 100 Oxymask 08/22/22 11:58 36.2 C L 79 18 156/94 H 99 Oxymask 08/22/22 09:10 36.6 C 70 18 150/103 H 97 Room Air O2 Flow Rate 08/22/22 14:40 08/22/22 14:10 2 08/22/22 13:40 08/22/22 13:25 2 08/22/22 13:15 2 08/22/22 13:05 3 08/22/22 12:55 3 08/22/22 12:45 3 08/22/22 12:35 4 08/22/22 12:25 4 08/22/22 12:15 4 08/22/22 12:05 6 08/22/22 11:58 6 08/22/22 09:10 Pain Intensity Back: Pain Intensity: 6 Transfer of Care Handoff Completed per policy Notes Mental Status: alert / awake / arousable and participated in evaluation Patient Amnestic to Procedure: Yes Nausea / Vomiting: adequately controlled Pain: adequately controlled Airway Patency, RR, SpO2: stable & adequate BP & HR: stable & adequate Hydration State: stable & adequate Anesthetic Complications: no major complications apparent and Pt Satisfied with anesthetic care
--- NOTE | 2022-08-22 15:48 | Hospitalist Consultation ---
Date of Consultation August 22, 2022 Assessment & Plan (1) Neurogenic claudication due to lumbar spinal stenosis: POD #0 - L2-L3 decompression, L2-L5 fusion - Pain control, DVT prophylaxis, activity per primary team - Encourage incentive spirometry - Check AM labs - CBC, BMP. EBL 200 - monitor for post-op blood loss anemia. Pt had FABIOLA on CKD after last lumbar surgery so will monitor closely - currently adequate urine output. Baseline creatinine 1.3-1.4. - PRN anti-emetics for post-op N/V (2) Diabetes mellitus, type II: Pharm consult for glycemic management noted - input appreciated. Holding Metformin. A1c done last month Diabetic diet Monitor BSG closely post-op in view of dexamethasone (3) CAD (coronary artery disease): Denies chest pain, palpitations, dyspnea Continue outpatient aspirin, statin, ACEI (4) CKD (chronic kidney disease), stage III: Monitor creatinine - hx FABIOLA after last lumbar surgery. Encourage oral intake as tolerated. (5) Hyperlipidemia: Continue statin (6) Hypertension: BP currently 136/85 - continue to monitor, continue outpatient meds. Plan Pt seen and reviewed with collaborating physician, Dr. Vu. Plan of care discussed and as outlined above. Thank you for this consultation. We will continue to follow this patient with you. A member of the [facility] hospitalist team is available 10/10 via [facility] [employer]. Please don't hesitate to reach out with questions. Rachelle Vela PA-C Supervising Physician Co-Signing Physician Notes Pt was seen and examined. Agreed with Leyla RAINES exam, assessment and plan. 62 y/o male with a history of CAD s/p CABG, HTN, dyslipidemia, DM2, CKD3 (baseline creatinine 1.3-1.4), and obesity who underwent L2-L3 decompression with L2-L5 fusion today by Dr. Cooney. Hospitalist was consulted for postop medical management. No postop complication. Continue Incentive spirometry. Pain control as per ortho. PT/OT eval. Continue monitor H/H. Fall precaution. MD Mirella History of Present Illness Reason for Consultation: Post-operative Medical Management Requesting Physician: Dr. Ashish Cooney Attending Physician: Ashish Cooney, DO History of Present Illness This is a 62 y/o male with a history of CAD s/p CABG, HTN, dyslipidemia, DM2, CKD3 (baseline creatinine 1.3-1.4), and obesity who underwent L2-L3 decompression with L2-L5 fusion today by Dr. Cooney and for whom we have been consulted to assist with post-operative medical management. Pt has had ongoing issues with lower back pain radiating to his right buttock and thigh. He also noted progressive weakness in the leg despite conservative management so he decided to undergo repeat lumbar surgical intervention (last lumbar surgery in Feb 2021). Currently pt is complaining of some nausea with one episode of emesis - has not taken anything for nausea yet but would like to. He did drink a moderate amount of water which he thinks may have been part of the issue. He denies prior issues with post-op N/V with prior surgeries. He has a constant sensation of needing to urinate despite having a Fontenot in place. He is having post-operative pain in the lower back but none in the right buttock or leg. no increase in chronic issues with numbness or tingling in LE. Denies chest pain, palpitations, SOB, RAHMAN. He has had some intermittent lightheadedness post-op and feels fatigued. Allergies Allergy/AdvReac Type Severity Reaction Status Date / Time bee venom protein (honey bee) Allergy Severe Anaphylaxis--YELLOW Verified 08/22/22 08:51 JACKETS shellfish derived Allergy Severe anaphylaxis Verified 08/22/22 08:51 erythromycin base AdvReac Mild nausea and Verified 08/22/22 08:51 vomiting Home Medications Medication Instructions Recorded Confirmed Type metformin 1,000 mg tablet 1,000 mg PO BID 11/17/19 08/22/22 History rosuvastatin 20 mg tablet 20 mg PO QAM 11/17/19 08/22/22 History cholecalciferol (vitamin D3) 25 25 mcg PO QAM 02/18/21 08/22/22 History mcg (1,000 unit) chewable tablet (Vitamin D3) cyanocobalamin (vitamin B-12) 1,000 mcg PO QAM 02/18/21 08/22/22 History 1,000 mcg tablet,extended release (Vitamin B-12 ER) aspirin 81 mg PO QAM 02/19/21 08/22/22 History lisinopril 5 mg tablet 5 mg PO QAM 03/17/21 08/22/22 History acetaminophen 325 mg tablet 325 mg PO QID PRN Pain 07/29/22 08/22/22 History (Tylenol) semaglutide 0.25 mg or 0.5 mg (2 0.5 mg subcut WK 07/29/22 08/22/22 History mg/1.5 mL) subcutaneous pen injector (Ozempic) Patient History Medical History CAD (coronary artery disease) s/p 3 vessel CABG 05/2020, [facility] CKD (chronic kidney disease), stage III following with [facility] nephrology. De Quervain's disease (tenosynovitis) 1984, resolved Diabetes NIDDM, controlled, stable per pt History of COVID-19 01/23/2020 - chills, pharyngitis, fatigue, cough, low grade fever and malaise- symptoms fully resolved Hyperlipidemia Hypertension controlled, stable per pt Myocardial infarction 04/2020 during cervical spine fusion > cath > CABG > follows with target setter in [place] Pulmonary nodules Scarring of lung hx bl pneumonia . Spinal stenosis Steatosis of liver in [facility] records, pt unaware, denies previous LFT testing Surgical History Hx of CABG x3-05/2020-[facility] in [place] Hx of cardiac cath 04/2020 d/t anterior cervical discectomy and fusion post-op EKG dx with inferior infarct: left main: 70-80% stenosis LAD: ostial 60-70% and diagonal branch 90% stenosis left Cx: ostial 90% stenosis RCA: proximal and mid 70-80% stenosis Hx of cervical spine surgery 04/2020 C5-7 - complicated by inferior infarct per [facility] records-subsequent cath and CABG Hx of colonoscopy Hx of hand surgery Toni contracture and trigger finger Status post lumbar surgery 03/17/21 posterior L3-L5 decompression and fusion Grade 1 view, glidescope 3, ETT 8. Family History Father Heart disease Social History Smoking Status: Former smoker Tobacco Type: Cigarettes Smoking End Date: > 20 years ago; Second Hand Exposure: No; Do You Dip or Chew Tobacco: No; Tobacco Cessation Education Requested by Patient: No Hx Alcohol Use: Yes (rare) Hx Substance Use: No Preferred Language: Taiwanese Communication Ability: Effective Yeast Culture Developer Required: No Beliefs That Will Affect Care: None marital status: Current Living Situation: Spouse How many Children do You have: 2 Feels Safe at Home: Yes Safety Concerns: Feels Safe At This Time Assistive Devices: Glasses Assistive Devices Comment: glasses for reading Review of Systems Review of Systems: All systems reviewed & are unremarkable except as noted in HPI & below Constitutional: no fever and no chills Eyes: no diplopia Ear, Nose, Mouth, Throat: no nasal congestion, no sore throat and no dysphagia Respiratory: no cough and no dyspnea Cardiovascular: no chest pain, no palpitations and no edema Gastrointestinal: no abdominal pain and no change in bowel habits Musculoskeletal: + back pain Integumentary: no rash and no yellowing of the skin Neurologic: + dizziness; no headache(s) Psychiatric: no depression and no anxiety Physical Exam Constitutional: well developed and well nourished; no acute distress Eyes: + anicteric sclerae Neck: trachea midline Respiratory: no respiratory distress and no labored breathing Auscultation: lungs clear to auscultation bilaterally; no rales, no rhonchi and no wheezes Cardiovascular: Rate/Rhythm: regular rate and regular rhythm Vessels: radial pulses present Extremities: no pedal edema Gastrointestinal (Abdomen): Inspection/Auscultation: normal bowel sounds; abdomen not distended Percussion/Palpation: abdomen soft; abdomen nontender Musculoskeletal: Head/Neck/Chest: normocephalic, head atraumatic and neck supple Skin: no jaundice Neurologic: moves all extremities; no focal motor deficits and not confused Psychiatric: A+Ox3, euthymic affect Genitourinary: Fontenot in place draining clear yellow urine Results & Data Results & Data Vital Signs (Past 12 Hours) Vital Signs Temp Pulse Pulse Resp BP Pulse Ox O2 Del Method 08/22/22 15:40 36.3 C L 75 16 136/85 98 Nasal Cannula 08/22/22 14:40 36.3 C L 71 16 143/91 H 98 Room Air 08/22/22 14:10 36.4 C L 70 18 142/89 H 100 Nasal Cannula 08/22/22 13:40 36.6 C 71 18 157/94 H 97 Room Air 08/22/22 13:25 36.3 C L 72 20 150/87 H 100 Nasal Cannula 08/22/22 13:15 68 14 144/83 H 97 Nasal Cannula 08/22/22 13:05 36.2 C L 71 14 150/103 H 100 Nasal Cannula 08/22/22 12:55 72 15 145/95 H 100 Nasal Cannula 08/22/22 12:45 65 14 139/89 100 Nasal Cannula 08/22/22 12:35 71 14 149/100 H 100 Nasal Cannula 08/22/22 12:25 72 17 151/103 H 100 Oxymask 08/22/22 12:15 71 14 160/98 H 100 Oxymask 08/22/22 12:05 75 20 149/98 H 100 Oxymask 08/22/22 11:58 36.2 C L 79 18 156/94 H 99 Oxymask 08/22/22 09:10 36.6 C 70 18 150/103 H 97 Room Air O2 Flow Rate 08/22/22 15:40 2 08/22/22 14:40 08/22/22 14:10 2 08/22/22 13:40 08/22/22 13:25 2 08/22/22 13:15 2 08/22/22 13:05 3 08/22/22 12:55 3 08/22/22 12:45 3 08/22/22 12:35 4 08/22/22 12:25 4 08/22/22 12:15 4 08/22/22 12:05 6 08/22/22 11:58 6 08/22/22 09:10 Laboratory Results 08/22/22 08/22/22 08/22/22 09:03 11:59 Unknown POC Glucose 104 H 153 H SARS-CoV-2, RNA, NAAT NEGATIVE Medications Administered Acetaminophen (Acetaminophen 500 Mg Tab) 1,000 mg PO PREOP LYNDSEY Stop: 08/22/22 18:00 Last Admin: 08/22/22 09:24 Dose: 1,000 mg Documented By: JAY Celecoxib (Celebrex 200 Mg Cap) 200 mg PO PREOP LYNDSEY Stop: 08/22/22 18:00 Last Admin: 08/22/22 09:24 Dose: 200 mg Documented By: JAY Fentanyl Citrate (Fentanyl Citrate Pf 100 Mcg/2 Ml Vial) 25 mcg IV Q5M PRN PRN Reason: PACU Use Only-Pain Stop: 08/22/22 17:31 Last Admin: 08/22/22 12:25 Dose: 25 mcg Documented By: Admin: 08/22/22 12:20 Dose: 25 mcg Documented By: Admin: 08/22/22 12:15 Dose: 25 mcg Documented By: Admin: 08/22/22 12:10 Dose: 25 mcg Documented By: URIAH Gabapentin (Gabapentin 600 Mg Dose) 600 mg PO PREOP LYNDSEY Stop: 08/22/22 18:00 Last Admin: 08/22/22 09:24 Dose: 600 mg Documented By: JAY Hydromorphone HCl (Hydromorphone Inj 1 Mg/Ml Syringe) 0.25 mg IV Q5M PRN PRN Reason: PACU Use Only-Pain Stop: 08/22/22 17:31 Last Admin: 08/22/22 12:45 Dose: 0.25 mg Documented By: Admin: 08/22/22 12:40 Dose: 0.25 mg Documented By: Admin: 08/22/22 12:35 Dose: 0.25 mg Documented By: Admin: 08/22/22 12:30 Dose: 0.25 mg Documented By: URIAH Clindamycin Phosphate (Cleocin/D5w) 900 mg in 50 mls @ 100 mls/hr IV PREOP LYNDSEY; Protocol Stop: 08/22/22 18:00 Last Infusion: 08/22/22 10:31 Dose: 100 mls/hr Documented By: Admin: 08/22/22 09:52 Dose: 100 mls/hr Documented By: MIKAEL Lactated Ringer's (Lr) 1,000 mls @ 15 mls/hr IV .Q24H LYNDSEY Stop: 08/23/22 05:59 Last Infusion: 08/22/22 09:44 Dose: 0 mls/hr Documented By: Admin: 08/22/22 09:24 Dose: 15 mls/hr Documented By: JAY Sodium Chloride (Nss 1000ml) 1,000 mls @ 150 mls/hr IV .Q6H40M LYNDSEY Stop: 09/21/22 13:37 Last Admin: 08/22/22 14:14 Dose: 150 mls/hr Documented By: DAVID Discontinued Medications Bupivacaine HCl/Epinephrine Bitart (Bupivacaine/Epinephrine 0.25% 1:200,000 30 Ml Vial) Confirm Administered Dose 30 ml .ROUTE .STK-MED ONE Stop: 08/22/22 09:40 Last Admin: 08/22/22 10:15 Dose: 20 ml Documented By: GMB Cefazolin Sodium (Cefazolin 330 Mg/Ml 1 Gm Vial) Confirm Administered Dose 990 mg .ROUTE .STK-MED ONE Stop: 08/22/22 09:34 Last Admin: 08/22/22 13:50 Dose: Not Given Documented By: DAVID Miscellaneous ( Floseal Hemostatic Matrix 10ml) 20 ml TOP ONCE ONE Stop: 08/22/22 10:33 Last Admin: 08/22/22 13:50 Dose: Not Given Documented By: DAVID Miscellaneous ( Floseal Hemostatic Matrix 10ml) 15 ml TOP ONCE ONE Stop: 08/22/22 11:26 Last Admin: 08/22/22 13:50 Dose: Not Given Documented By: DAVID
[2022-08-22] MEDS ORDERED: LANTUS PER UNIT CHARGE SC ONE (16:30)
[2022-08-22] MEDS: oxyCODONE HCL IR 5 MG TAB (IMMEDIATE RELEASE) PO PRN (16:32)
[2022-08-22] MEDS: INSULIN ASPART PER UNIT CHARGE SC SCH ×2 (17:03→21:41)
[2022-08-22] MEDS: ceFAZolin 2000MG 2,000 MG/15 ML SYR IV SCH (17:43)
[2022-08-22] MEDS: DOCUSATE SODIUM/SENNA 50/8.6MG TAB PO SCH (21:42)
[2022-08-23] MEDS: oxyCODONE HCL IR 5 MG TAB (IMMEDIATE RELEASE) PO PRN ×3 (00:33→22:47)
[2022-08-23] MEDS: ceFAZolin 2000MG 2,000 MG/15 ML SYR IV SCH (01:03)
[2022-08-23] MEDS: SODIUM CHLORIDE 0.9% 1000ML 1,000 ML IV SCH (03:21)
[2022-08-23] MEDS: POLYETHYLENE (MIRALAX) 17 GM PACK PO SCH ×4 (05:59→22:48)
[2022-08-23 06:33] LABS: Basophils # (auto) 0.01 K/uL (0-0.2); Basophils % (auto) 0.1 %; Hematocrit (blood only) 35.5 % (42.0-52.0); Hemoglobin 12.1 g/dl (14.0-18.0); Immature Granulocytes # (auto) 0.07 K/uL (0.01-0.20); Immature Granulocytes % (auto) 0.6 %; Lymphocytes % (auto) 11.2 %; Mean Corpuscular Hemoglobin 28.6 pg (25.0-34.0); Mean Corpuscular Hgb Conc 34.1 g/dL (32.0-36.0); Mean Corpuscular Volume 83.9 fL (80.0-100.0); Mean Platelet Volume 10.5 fL (9.4-12.4); Monocytes # (auto) 0.97 K/uL (0.11-0.59); Monocytes % (auto) 8.3 %; Neutrophils # (auto) 9.27 K/uL (1.40-6.50); Neutrophils % (auto) 79.8 %; Platelet Count 204 K/uL (130-400); RDW Coefficient of Variation 12.9 % (11.5-14.5); RDW Standard Deviation 39.1 fL (36.4-46.3); Red Blood Count 4.23 M/uL (4.70-6.10); White Blood Count 11.62 K/ul (4.8-10.8)
[2022-08-23 06:44] LABS: BUN Creatinine Ratio 16.7 (10-20); Calcium 8.5 mg/dl (8.6-10.3); Creatinine Clr Calc Pharmacy 70.9 ml/min; Est GFR (African American) 75.2 ml/min; Est GFR (Non-African American) 64.9 ml/min; Potassium 4.7 mmol/L (3.5-5.1)
[2022-08-23] MEDS: dexAMETHasone 6 MG in SYRINGE 0 ML IV SCH (08:37)
[2022-08-23] MEDS: CHOLECALCIFEROL 1,000 UNITS 25 MCG TAB PO SCH (08:37)
[2022-08-23] MEDS: CYANOCOBALAMIN (B-12) 500 MCG TABLET PO SCH (08:37)
[2022-08-23] MEDS: ROSUVASTATIN CALCIUM 20 MG TAB PO SCH (08:37)
[2022-08-23] MEDS: lisinopril 5 MG TAB PO SCH (08:37)
[2022-08-23] MEDS: ASPIRIN 81 MG ECTAB PO SCH (08:37)
[2022-08-23] MEDS: INSULIN ASPART PER UNIT CHARGE SC SCH ×4 (08:44→21:20)
[2022-08-23] MEDS ORDERED: LANTUS PER UNIT CHARGE SC ONE (09:30)
--- NOTE | 2022-08-23 11:46 | Orthopedic Progress Note ---
Date of Service August 23, 2022 Assessment & Plan (1) Neurogenic claudication due to lumbar spinal stenosis: Plan: At this time we will continue physical therapy monitor his KEERTHI output hopefully discharge home in the next few days. Admission and Anticipated Discharge Date Admission Date: August 22, 2022 Subjective Back pain controlled leg symptoms markedly improved Physical Exam Physical Exam: Patient is up and ambulating the halls without difficulty. Has good strength testing. Results & Data Vital Signs (Past 12 Hours) Vital Signs Temp Pulse Pulse Resp BP BP Pulse Ox 08/23/22 11:36 36.5 C 68 16 139/78 98 08/23/22 07:24 36.6 C 68 16 145/80 H 98 08/23/22 03:18 36.5 C 68 16 126/76 99 O2 Del Method 08/23/22 11:36 Room Air 08/23/22 07:24 Room Air 08/23/22 03:18 Room Air Queries Orthopedic Spine Obesity: Yes
--- NOTE | 2022-08-23 14:26 | Hospitalist Progress Note ---
Date of Service August 23, 2022 Assessment & Plan (1) Neurogenic claudication due to lumbar spinal stenosis: Plan: POD #1 - L2-L3 decompression, L2-L5 fusion - Pain control, DVT prophylaxis, activity per primary team. Doing well incentive spirometry (2) Diabetes mellitus, type II: Plan: IP glycemic pharmacist managing insulin. On decadron per orthopedics (3) CAD (coronary artery disease): Plan: No chest pain, palpitations, dyspnea. Continue outpatient aspirin, statin, ACEI (4) CKD (chronic kidney disease), stage III: Plan: Cr at baseline of 1.2. Has h/o FABIOLA after last lumbar surgery. Monitor. (5) Hyperlipidemia: Plan: Continue statin (6) Hypertension: Plan: BP stable, continue home lisinopril Plan DVT ppx- per primary team Dispo- Per primary team. Admission and Anticipated Discharge Date Admission Date: August 22, 2022 Subjective Seen and examined at bedside. Pain is tolerable- he is trying to stay off of pain meds as much as possible. Tolerating diet well. No N/V. Voiding without issues. No gas or BM yet. Ambulating independently. Review of Systems Review of Systems: All systems reviewed & are unremarkable except as noted in Subjective Physical Exam Physical Exam: General: Sitting comfortably in chair, not in distress, on room air HEENT: EOMI, FLOYD, MMM Chest: Clear breath sounds bilaterally, no wheezes or crackles CVS: Regular rate and rhythm, normal heart sounds, no murmur Abdomen: Soft, non tender, not distended, normal bowel sounds Neuro: Awake, alert, oriented, conversing well, non focal Extremities: No cyanosis, clubbing or edema Back: Incision covered with dressing- clean dry, KEERTHI drain with serosang output Results & Data Results & Data Vital Signs (Past 12 Hours) Vital Signs Temp Pulse Pulse Resp BP BP Pulse Ox 08/23/22 11:36 36.5 C 68 16 139/78 98 08/23/22 07:24 36.6 C 68 16 145/80 H 98 08/23/22 03:18 36.5 C 68 16 126/76 99 O2 Del Method 08/23/22 11:36 Room Air 08/23/22 07:24 Room Air 08/23/22 03:18 Room Air Laboratory Results Short CBC 08/23/22 Range/Units 05:48 WBC 11.62 H (4.8-10.8) K/ul Hgb 12.1 L (14.0-18.0) g/dl Hct 35.5 L (42.0-52.0) % Plt Count 204 (130-400) K/uL [facility] 08/23/22 05:48 Sodium 136 Potassium 4.7 Chloride 104 Carbon Dioxide 28 BUN 20 Creatinine 1.20 Glucose 125 H Calcium 8.5 L Medications Administered Current Inpatient Medications Acetaminophen (Acetaminophen 500 Mg Tab) 1,000 mg PO Q8H PRN PRN Reason: MILD Pain Scale 1,2,3 & Pre PT Stop: 09/21/22 13:37 Al Hydrox/Mg Hydrox/Simethicone (Aluminum/Magnesium Susp 30 Ml Udc) 30 ml PO Q6H PRN PRN Reason: Dyspepsia Stop: 09/21/22 13:37 Aspirin (Aspirin 81 Mg Ectab) 81 mg PO QAM [facility] Stop: 09/22/22 08:59 Last Admin: 08/23/22 08:37 Dose: 81 mg Bisacodyl (Bisacodyl 10 Mg Supp) 10 mg [place] DAILY PRN PRN Reason: Constipation Stop: 09/21/22 13:37 Cyanocobalamin (Cyanocobalamin (B-12) 500 Mcg Tablet) 1,000 mcg PO [facility] Stop: 09/22/22 08:59 Last Admin: 08/23/22 08:37 Dose: 1,000 mcg Dextrose (Dextrose 50% 50 Ml Syringe) 25 - 50 ml IV UD PRN; Protocol PRN Reason: Hypoglycemia Protocol Stop: 09/21/22 14:29 Diphenhydramine HCl (Diphenhydramine Capsule 25 Mg Cap) 25 mg PO Q6H PRN PRN Reason: Allergic Rhinitis/Insomnia Stop: 09/21/22 13:37 Famotidine (Famotidine 20 Mg Tab) 20 mg PO Q12H PRN PRN Reason: Dyspepsia Stop: 09/21/22 13:37 Glucagon (Glucagon For Inj 1 Mg Vial) 1 mg IM UD PRN; Protocol PRN Reason: Hypoglycemia Protocol Stop: 09/21/22 14:29 Glucose (Glucose 40% Gel 15 Gm Tube) 15 - 30 gm PO UD PRN; Protocol PRN Reason: Hypoglycemia Protocol Stop: 09/21/22 14:29 Glucose (Glucose 10 Tab/Tube) 4 - 8 tab PO UD PRN; Protocol PRN Reason: Hypoglycemia Protocol Stop: 09/21/22 14:29 Hydromorphone HCl (Hydromorphone Inj 0.5 Mg/0.5 Ml Syr) 0.5 mg IV Q3H PRN PRN Reason: MODERATE Pain (Scale 4,5,6) & Pre PT Stop: 09/05/22 13:37 Hydromorphone HCl (Hydromorphone Inj 1 Mg/Ml Syringe) 1 mg IV Q3H PRN PRN Reason: SEVERE Pain (Scale 7,8,9,10) Stop: 09/05/22 13:37 Hydroxyzine HCl (Hydroxyzine Hcl 25 Mg Tab) 25 mg PO Q8H PRN PRN Reason: Anxiety Stop: 09/21/22 13:37 Promethazine HCl 12.5 mg/ (Sodium Chloride) 50.5 mls @ 202 mls/hr IV Q6H PRN PRN Reason: Nausea &/or Vomiting Stop: 09/21/22 13:37 Dexamethasone 6 mg/ Syringe 1.5 mls @ 1 mls/min IV DAILY [facility] Stop: 08/25/22 09:02 Last Admin: 08/23/22 08:37 Dose: 1 mls/min Influenza Virus Vaccine Quadrival (Do Not Administer Flu Vaccine) 1 each N/A PRN PRN PRN Reason: Notification Stop: 09/21/22 13:37 Insulin Aspart (Insulin Aspart Per Unit Charge) 0 units SC ACHS [facility] Stop: 09/21/22 16:29 Last Admin: 08/23/22 13:43 Dose: 7 units Lisinopril (Lisinopril 5 Mg Tab) 5 mg PO QAM [facility] Stop: 09/22/22 08:59 Last Admin: 08/23/22 08:37 Dose: 5 mg Lorazepam (Lorazepam 0.5 Mg Tab) 0.5 mg PO Q8H PRN PRN Reason: Sedation/Anxiety Stop: 09/21/22 13:37 Lorazepam (Lorazepam 2 Mg/1 Ml Vial) 0.5 mg IV Q8H PRN PRN Reason: Sedation/Anxiety Stop: 09/21/22 13:37 Magnesium Hydroxide (Magnesium Hydroxide Susp 30 Ml Udc) 30 ml PO Q24H PRN PRN Reason: Constipation Stop: 09/21/22 13:37 Metoclopramide HCl (Metoclopramide Hcl Inj 5 Mg/Ml 2 Ml Vial) 10 mg IV Q6H PRN PRN Reason: Nausea &/or Vomiting Stop: 09/21/22 13:37 Miscellaneous (Carbohydrates For Hypoglycemia ) 15 - 30 gm PO UD PRN PRN Reason: Hypoglycemia Treatment Stop: 09/21/22 14:29 Miscellaneous Information (Pharmacy Glycemic Mgmt Consult) 1 each N/A UD PRN PRN Reason: Consult Stop: 09/21/22 13:37 Naloxone HCl (Naloxone Hcl 0.4 Mg/1 Ml Vial/Carp) 0.1 mg IV Q5M PRN PRN Reason: Oversedation/Resp depression Stop: 09/21/22 13:37 Ondansetron HCl (Ondansetron Inj 2 Mg/Ml 2 Ml Vial) 4 mg IV Q6H PRN PRN Reason: Nausea &/or Vomiting Stop: 09/21/22 13:37 Last Admin: 08/22/22 15:17 Dose: 4 mg Ondansetron HCl (Ondansetron 4 Mg Od Tab) 4 mg PO Q6H PRN PRN Reason: Nausea Stop: 09/21/22 13:37 Oxycodone HCl (Oxycodone Hcl Ir 5 Mg Tab (Immediate Release)) 5 - 10 mg PO Q4H PRN PRN Reason: Pain & Pre PT Stop: 09/05/22 13:37 Last Admin: 08/23/22 00:33 Dose: 10 mg Pneumococcal Polyvalent Vaccine (Do Not Administer Pneumococcal Vaccine) 1 each N/A PRN PRN PRN Reason: Notification Stop: 09/21/22 13:37 Polyethylene Glycol (Polyethylene (Miralax) 17 Gm Pack) 17 gm PO Q6 [facility] Stop: 09/22/22 05:59 Last Admin: 08/23/22 12:16 Dose: 17 gm Rosuvastatin Calcium (Rosuvastatin Calcium 20 Mg Tab) 20 mg PO QAM [facility] Stop: 09/22/22 08:59 Last Admin: 08/23/22 08:37 Dose: 20 mg Senna/Docusate Sodium (Docusate Sodium/Senna 50/8.6mg Tab) 2 tab PO HS [facility] Stop: 09/21/22 20:59 Last Admin: 08/22/22 21:42 Dose: 2 tab Sodium Biphosphate/Sodium Phosphate (Sod Phosphate/Sod Biphosphate Enema 132 Ml Btl) 132 ml [place] ONE PRN PRN Reason: Constipation Stop: 09/21/22 13:37 Tramadol HCl (Tramadol Hcl 50 Mg Tablet) 50 - 100 mg PO Q4H PRN PRN Reason: Moderate-Severe pain & Pre PT Stop: 09/21/22 13:37 Vitamin D (Cholecalciferol 1,000 Units 25 Mcg Tab) 1,000 [facility] [place] Stop: 09/22/22 08:59 Last Admin: 08/23/22 08:37 Dose: 1,000 units
[2022-08-23] MEDS: DOCUSATE SODIUM/SENNA 50/8.6MG TAB PO SCH (21:20)
[2022-08-24] MEDS: POLYETHYLENE (MIRALAX) 17 GM PACK PO SCH ×2 (05:44→12:49)
[2022-08-24 07:58] LABS: Hematocrit (blood only) 36.3 % (42.0-52.0); Hemoglobin 12.3 g/dl (14.0-18.0); Mean Corpuscular Hemoglobin 28.9 pg (25.0-34.0); Mean Corpuscular Hgb Conc 33.9 g/dL (32.0-36.0); Mean Corpuscular Volume 85.4 fL (80.0-100.0); Platelet Count 214 K/uL (130-400); RDW Coefficient of Variation 13.2 % (11.5-14.5); RDW Standard Deviation 40.7 fL (36.4-46.3); Red Blood Count 4.25 M/uL (4.70-6.10); White Blood Count 9.84 K/ul (4.8-10.8)
[2022-08-24] MEDS: CHOLECALCIFEROL 1,000 UNITS 25 MCG TAB PO SCH (08:10)
[2022-08-24] MEDS: dexAMETHasone 6 MG in SYRINGE 0 ML IV SCH (08:10)
[2022-08-24] MEDS: ROSUVASTATIN CALCIUM 20 MG TAB PO SCH (08:10)
[2022-08-24] MEDS: lisinopril 5 MG TAB PO SCH (08:10)
[2022-08-24] MEDS: ASPIRIN 81 MG ECTAB PO SCH (08:10)
[2022-08-24] MEDS: CYANOCOBALAMIN (B-12) 500 MCG TABLET PO SCH (08:10)
[2022-08-24 08:14] LABS: Calcium 8.9 mg/dl (8.6-10.3); Est GFR (African American) 88.4 ml/min; Est GFR (Non-African American) 76.2 ml/min; Potassium 4.3 mmol/L (3.5-5.1)
[2022-08-24] MEDS: LANTUS PER UNIT CHARGE SC SCH (09:12)
[2022-08-24] MEDS: INSULIN ASPART PER UNIT CHARGE SC SCH ×4 (09:12→21:28)
--- NOTE | 2022-08-24 10:56 | Orthopedic Progress Note ---
Date of Service August 24, 2022 Assessment & Plan (1) Neurogenic claudication due to lumbar spinal stenosis: Plan: At this time we will continue physical therapy monitor his KEERTHI output anticipate discharge home tomorrow. Admission and Anticipated Discharge Date Admission Date: August 22, 2022 Subjective Back pain controlled leg symptoms improved Physical Exam Physical Exam: Patient is up and ambulating halls. Good strength testing. Results & Data Vital Signs (Past 12 Hours) Vital Signs Temp Pulse Resp BP Pulse Ox O2 Del Method 08/24/22 07:48 36.6 C 64 16 122/71 98 Room Air Queries Orthopedic Spine Obesity: Yes
--- NOTE | 2022-08-24 15:49 | Hospitalist Progress Note ---
Date of Service August 24, 2022 Assessment & Plan (1) Neurogenic claudication due to lumbar spinal stenosis: Plan: POD #2 - L2-L3 decompression, L2-L5 fusion - Pain control, DVT prophylaxis, activity per primary team. Doing well incentive spirometry (2) Diabetes mellitus, type II: Plan: IP glycemic pharmacist managing insulin. On decadron per orthopedics (3) CAD (coronary artery disease): Plan: No chest pain, palpitations, dyspnea. Continue outpatient aspirin, statin, ACEI (4) CKD (chronic kidney disease), stage III: Plan: Cr at baseline of 1.2. Has h/o FABIOLA after last lumbar surgery. Labs reviewed from today; creatinine of 1.05. (5) Hyperlipidemia: Plan: Continue statin (6) Hypertension: Plan: BP stable, continue home lisinopril Plan DVT ppx- per primary team Dispo- Per primary team. Admission and Anticipated Discharge Date Admission Date: August 22, 2022 Subjective Patient seen and examined at bedside. Sitting up on the chair; not in distress. Review of Systems Review of Systems: All systems reviewed & are unremarkable except as noted in Subjective Physical Exam Physical Exam: General: Sitting comfortably in chair, not in distress, on room air HEENT: EOMI, FLOYD, MMM Chest: Clear breath sounds bilaterally, no wheezes or crackles CVS: Regular rate and rhythm, normal heart sounds, no murmur Abdomen: Soft, non tender, not distended, normal bowel sounds Neuro: Awake, alert, oriented, conversing well, non focal Extremities: No cyanosis, clubbing or edema Back: Incision covered with dressing- clean dry, KEERTHI drain with serosang output Results & Data Results & Data Vital Signs (Past 12 Hours) Vital Signs Temp Pulse Resp BP Pulse Ox O2 Del Method 08/24/22 15:01 36.4 C L 74 16 105/65 96 Room Air 08/24/22 07:48 36.6 C 64 16 122/71 98 Room Air Laboratory Results Laboratory Results WBC 9.84 K/ul (4.8-10.8) 08/24/22 06:04 RBC 4.25 M/uL (4.70-6.10) L 08/24/22 06:04 Hgb 12.3 g/dl (14.0-18.0) L 08/24/22 06:04 Hct 36.3 % (42.0-52.0) L 08/24/22 06:04 MCV 85.4 fL (80.0-100.0) 08/24/22 06:04 MCH 28.9 pg (25.0-34.0) 08/24/22 06:04 MCHC 33.9 g/dL (32.0-36.0) 08/24/22 06:04 RDW Std Deviation 40.7 fL (36.4-46.3) 08/24/22 06:04 RDW Coeff of Flora 13.2 % (11.5-14.5) 08/24/22 06:04 Plt Count 214 K/uL (130-400) 08/24/22 06:04 MPV 11.0 fL (9.4-12.4) 08/24/22 06:04 Immature Gran % (Auto) 0.6 % 08/23/22 05:48 Neut % (Auto) 79.8 % 08/23/22 05:48 Lymph % (Auto) 11.2 % 08/23/22 05:48 Crenshaw % (Auto) 8.3 % 08/23/22 05:48 Eos % (Auto) 0.0 % 08/23/22 05:48 Baso % (Auto) 0.1 % 08/23/22 05:48 Neut # (Auto) 9.27 K/uL (1.40-6.50) H 08/23/22 05:48 Lymph # (Auto) 1.30 K/uL (1.2-3.4) 08/23/22 05:48 Crenshaw # (Auto) 0.97 K/uL (0.11-0.59) H 08/23/22 05:48 Eos # (Auto) 0.00 K/uL (0-0.50) 08/23/22 05:48 Baso # (Auto) 0.01 K/uL (0-0.2) 08/23/22 05:48 Immature Gran # (Auto) 0.07 K/uL (0.01-0.20) 08/23/22 05:48 Sodium 137 mmol/L (136-145) 08/24/22 06:04 Potassium 4.3 mmol/L (3.5-5.1) 08/24/22 06:04 Chloride 105 mmol/L (98-107) 08/24/22 06:04 Carbon Dioxide 27 mmol/L (21-32) 08/24/22 06:04 Anion Gap 5 (3-11) 08/24/22 06:04 BUN 20 mg/dl (6-23) 08/24/22 06:04 Creatinine 1.05 mg/dl (0.6-1.4) 08/24/22 06:04 Est Cr Clr Drug Dosing 81.0 ml/min 08/24/22 06:04 Est GFR ( Amer) 88.4 ml/min 08/24/22 06:04 Est GFR (Non-Af Amer) 76.2 ml/min 08/24/22 06:04 BUN/Creatinine Ratio 19.0 (10-20) 08/24/22 06:04 Glucose 101 mg/dl (70-99(Fasting)) H 08/24/22 06:04 POC Glucose 173 mg/dl (70-99) H 08/24/22 11:50 Calcium 8.9 mg/dl (8.6-10.3) 08/24/22 06:04 SARS-CoV-2, RNA, NAAT NEGATIVE (NEGATIVE) 08/22/22 Unknown Impressions Lumbar Spine X-Ray 08/22/22 07:00 FL lumbar spine 2-3V CLINICAL HISTORY: L2-L3 DECOMPRESSION/FUSION COMPARISON STUDY: 03/17/2021 FLUOROSCOPY TIME: 10 seconds FLUOROSCOPY IMAGES: 2 EXPOSURE DOSE: 6.03 mGy FINDINGS: Posterior interbody nella and screw fusion hardware is noted at what appears to be L2-L5 levels with prior screw removal at the L4 level. Discectomy changes at L2-L3, L3-L4 and L4-L5. Hardware appears intact. No unexpected opaque foreign bodies. Multilevel spondylitic spurring. Note that the images were submitted following completion of the surgery. IMPRESSION: Fluoroscopic assistance as above. ACT 112: Negative or not required by law. Electronically signed by: Tristen Cardenas M.D. 08/22/2022 1:16 PM
[2022-08-24] MEDS: oxyCODONE HCL IR 5 MG TAB (IMMEDIATE RELEASE) PO PRN (18:05)
[2022-08-24] MEDS: DOCUSATE SODIUM/SENNA 50/8.6MG TAB PO SCH (21:23)
[2022-08-25] MEDS: oxyCODONE HCL IR 5 MG TAB (IMMEDIATE RELEASE) PO PRN ×3 (02:05→13:54)
--- NOTE | 2022-08-25 08:15 | Discharge Summary ---
Date of Service August 25, 2022 Admission HPI Per Admitting Provider This is a 62-year-old male who presents with chronic persistent back and leg pain after failing extensive course of nonoperative care is here for surgical intervention. Principal Diagnosis Lumbar spinal stenosis with neurogenic claudication Discharge Data Allergies Allergy/AdvReac Type Severity Reaction Status Date / Time bee venom protein (honey bee) Allergy Severe Anaphylaxis--YELLOW Verified 08/22/22 08:51 JACKETS shellfish derived Allergy Severe anaphylaxis Verified 08/22/22 08:51 erythromycin base AdvReac Mild nausea and Verified 08/22/22 08:51 vomiting Consultations 08/22/22 13:38 Consult Hospitalist Routine Procedures Performed Operation Date: 08/22/22 10:05 Actual Procedures p L2-L3 Decompression, L2-L5 Fusion, Spinal Cord Monitoring(Not Applicable) - DO rahel Matrin Removal Hardware(Not Applicable) - Ashish Cooney DO Ordered Studies 08/22/22 07:00 FL lumbar spine 2-3V Routine Hospital Course (1) Neurogenic claudication due to lumbar spinal stenosis: Patient underwent lumbar decompression fusion tolerated this well was taken orthopedic for postop labor postop day 1 is up and ambulating progress postop day 2 on postop day #3 Strength testing KEERTHI drain decreased appropriate. Pain well controlled. Subsequent discharge home. Discharge instructions found in chart for further review. Total Time Total Time Spent Total Time Spent (In Minutes): 20 minutes Discharge Plan Discharge Items Patient Disposition: Home - Self-Care Reason For Visit: POSTOP Discharge Diagnosis: Lumbar spinal stenosis with neurogenic claudication Activity: As commented below Non-emergency contact: Primary Care Provider Call non-emergency contact if: you have any medication questions Follow-up/Referrals: Eboni Peralta DO [Primary Care Provider] - Diet: Regular Addtl Attending Provider Instructions: ACTIVITY RECOMMENDATIONS: SELF CARE INSTRUCTIONS AFTER THORACIC/LUMBAR FUSIONS 1. You may walk to your tolerance. It is good exercise for your legs and back. Expect some back and intermittent leg aches and pains. 2. You may perform "counter-top" level activities (make a sandwich, neil with a project, etc.). 3. No bending or lifting of more than 10 pounds or back twisting of any nature (roll like a log when turning in bed). 4. You may ride in a car for 20-30 minutes at a time. No driving until after your first visit with your doctor. 5. Frequent changes of position and restricting sitting to 30 minutes at a time will help limit the amount of back spasms and stiffness you may experience. 6. You may discontinue the use of ambulatory aids (cane, crutches, etc.) once your strength and confidence allow. 7. You may animal treatment investigator the shower and let water strike your incision when you arrive home at least once daily. Do not take a tub bath, sit in a hot tub or go into a swimming pool until after your first recheck in the office. SPECIAL CARE INSTRUCTIONS: VERY IMPORTANT TO READ AND REVIEW A. Your surgical incision has been closed with a cosmetic suture under the skin that will dissolve in about 6 weeks. In 14 days, you can use a pair of clean scissors and cut the suture that is left outside of the skin at the ends of your incision. 1. The small skin tapes can be removed 7 days after surgery if they have not fallen off by that point. 2. You may keep the wound open to air as much as possible to promote healing after post-op day number 5 unless told otherwise by your doctor. 3. If you think the wound looks like it is becoming infected (redness or worsening drainage) and/or you are experiencing fever, chill or worsening back pain and muscle spasms, contact the office so that we may evaluate you as soon as possible. B. Complications are uncommon, but please contact us if you have any signs or symptoms of: 1. wound infection (fever higher than 102.5 degrees F, redness, separation of wound, drainage, or increasing pain from the incision) 2. blood clots in legs (pain, swelling, redness and warmth in legs) 3. urinary tract infection (fever higher than 102.5 degrees F, burning upon urination or increased frequency of urination) 4. nerve problems (inability to walk on your toes or heels, numbness, loss o f bowel or bladder control) 5. any other symptoms that concern you C. Please call the office at if you have any concerns or question s about your operation or recovery. D. No smoking! Smoking drastically decreases the chance of a solid fusion. E. Do not take any anti-inflammatory medications (Indocin, Advil, Motrin, Aspirin, Naprosyn, etc.) as these may inhibit the chance of a solid fusion. Tylenol is okay to take for pain. MANAGING PAIN AFTER SPINAL SURGERY 1. Narcotic medication is intended for short-term use and will be provided for surgical pain. Surgical pain usually lasts for a period of 4-6 weeks. Narcotic medication includes Percocet, Vicodin, Darvocet, Tylenol #3 or Lortab. 2. Longer-term pain is more appropriately treated with non-narcotic medication such as Tylenol ES. 3. Muscle spasm is not appropriately treated with narcotics. Muscle relaxers such as Soma, Flexeril or Skelaxin can be used along with Tylenol ES. 4. Remember that we all live with some "aches and pains". This is not unusual or uncommon after an injury or as we get older. a. Back pain is expected and may include muscle spasms for 4 to 6 weeks after surgery. The pain should gradually improve. If the pain worsens for no apparent reason, please contact the office. b. Intermittent leg pain may also be experienced and should not be concerned about unless it worsens for no apparent reason. If so, please contact the office. 5. We will provide appropriate medication within the normal guidelines of their prescribed use. We will also be very cautious and aware of potential abuse and extended duration of patients' medication needs. a. Pain medications are for your comfort and to assist with sleep and rest so that the tissue can heal. They are not provided in order to return to normal activity and should not be used through the day. To do so or worsening pain at night can result from ongoing tissue damage and development of tolerance to the prescribed medicine. 6. Please allow 2-3 days to process refills. Prescriptions will not be mailed but must be picked up at the office. FOLLOW UP VISIT: Keep your scheduled follow-up appointment. Any questions, please call the office at . Pending Studies at Discharge: No Stand-Alone Forms: My [employer], Smoking Cessation Medications and NC Order Prescriptions: New tramadol 50 mg tablet 50 mg PO Q6H PRN (Reason: pain, moderate) Qty: 30 0RF oxycodone 5 mg tablet 5 mg PO Q6H PRN (Reason: pain) Qty: 30 0RF Continued metformin 1,000 mg tablet 1,000 mg PO BID rosuvastatin 20 mg tablet 20 mg PO QAM cyanocobalamin (vitamin B-12) [Vitamin B-12] 1,000 mcg Tablet Extended Release 1,000 mcg PO QAM cholecalciferol (vitamin D3) [Vitamin D3] 25 mcg (1,000 unit) Tablet,Chewable 25 mcg PO QAM aspirin 81 mg PO QAM lisinopril 5 mg tablet 5 mg PO QAM Ozempic 0.25 mg or 0.5 mg(2 mg/1.5 mL) Pen Injector 0.5 mg SUBCUT WK Rx Instructions: Fridays acetaminophen [Tylenol] 325 mg Tablet 325 mg PO QID PRN (Reason: Pain) Discharge Orders: Discharge Order (Routine); Ordered 08/25/22 Ordered By: Ashish Cooney Admission Data Admit Date/Time: 08/22/22 11:38 Attending Provider: Ashish Cooney Admit Provider: Ashish Cooney Primary Care Provider: Eboni Peralta Other Providers: Keyanna Gonzalez ; Damion Boland
[2022-08-25] MEDS: ASPIRIN 81 MG ECTAB PO SCH (08:39)
[2022-08-25] MEDS: LANTUS PER UNIT CHARGE SC SCH (08:39)
[2022-08-25] MEDS: ROSUVASTATIN CALCIUM 20 MG TAB PO SCH (08:39)
[2022-08-25] MEDS: CYANOCOBALAMIN (B-12) 500 MCG TABLET PO SCH (08:39)
[2022-08-25] MEDS: lisinopril 5 MG TAB PO SCH (08:40)
[2022-08-25] MEDS: dexAMETHasone 6 MG in SYRINGE 0 ML IV SCH (08:40)
[2022-08-25] MEDS: CHOLECALCIFEROL 1,000 UNITS 25 MCG TAB PO SCH (08:40)
[2022-08-25] MEDS: INSULIN ASPART PER UNIT CHARGE SC SCH ×2 (08:41→12:57)
[2022-08-25 08:48] LABS: Hemoglobin 13.3 g/dl (14.0-18.0)
--- NOTE | 2022-08-25 14:01 | Hospitalist Progress Note ---
Date of Service August 25, 2022 Assessment & Plan (1) Neurogenic claudication due to lumbar spinal stenosis: Plan: POD #3 - L2-L3 decompression, hardware removal L3-L5 Activity and wound care orders as per ortho Pain control with bowel regimen PT/OT Monitor H/H for acute blood loss anemia and transfuse blood products PRN EBL 200 cc Hgb stable at 13.3 (preop 14.6) (2) Diabetes mellitus, type II: Plan: Hgb A1c 7.1 07/2022 Glycemic pharmacy consulted by primary team Resume home regimen at discharge (3) CAD (coronary artery disease): Plan: Appears stable, no reports of chest pain Continue ASA, statin, ACEI (4) CKD (chronic kidney disease), stage III: Plan: Creatinine 1.0 08/24/2022 History of FABIOLA after previous surgery (5) Hyperlipidemia: Plan: Continue statin (6) Hypertension: Plan: BP stable, continue home lisinopril Plan DVT PROPHYLAXIS Teds/SCDs as per spine Ortho Patient seen in collaboration with Dr. Boland. Admission and Anticipated Discharge Date Admission Date: August 22, 2022 Supervising Physician Co-Signing Physician Notes Patient seen and examined independently. Discussed with above provider. Patient sitting up on the chair; not in distress. Had a bowel movement; voiding well without any difficulty. To be discharged today by primary team. Follow-up with PCP as needed. Subjective Follow-up for medical management s/p back surgery. Patient seen and examined. Sitting up in the chair, having breakfast. Reports pain is well controlled, ambulating in halls without difficulty. Offers no complaints. Eager to be discharged. Denies chest pain and shortness of breath. Urinating without difficulty and + BM. Physical Exam Constitutional: WD/WN, vitals as above no acute distress Respiratory: normal respiratory effort, lungs clear to auscultation Cardiovascular: Rate/Rhythm: regular rate and regular rhythm Vessels: normal peripheral pulses Extremities: no edema Gastrointestinal (Abdomen): Percussion/Palpation: abdomen soft; abdomen nontender Musculoskeletal: S/p back surgery, dressing CDI, drain in place draining serosanguineous drainage, strength strong and equal BLE Skin: no rashes, warm and dry Neurologic: no focal motor deficits Psychiatric: A+Ox3, euthymic affect Results & Data Results & Data Vital Signs (Past 12 Hours) Vital Signs Temp Pulse Resp BP Pulse Ox O2 Del Method 08/25/22 07:45 36.6 C 72 16 115/72 97 Room Air Laboratory Results H&H-13.3/39.0
== END 2022-08-25 14:45 | disposition home or self-care (01) | DRG 455 ==
LOC: ASU 08:28 → 3E 11:38

== ENCOUNTER 2025-03-08 12:23 | Inpatient (IN) ==
--- NOTE | 2025-03-08 13:04 | Emergency Department Note ---
Impression & Plan Acute hyponatremia, Acute kidney injury superimposed on chronic kidney disease ED Provider Note CHIEF COMPLAINT: Flulike symptoms HISTORY OF PRESENTING ILLNESS: Patient is a pleasant 64-year-old male who arrives to the emergency department for evaluation of flulike symptoms. Patient states symptoms began approximately 1 week ago. He states body aches, chills, fever, and malaise. He reports some clear nasal drainage, with a headache. He states he had 1 episode of vomiting yesterday. He denies abdominal pain, current nausea, vomiting, diarrhea, constipation. He states symptoms have persisted, and he has had decreased appetite, decreased oral intake. He is currently afebrile, hemodynamically stable. REVIEW OF SYSTEMS: See HPI for pertinent positives and pertinent negatives. ALLERGIES: See below MEDICATIONS: See below PAST MEDICAL HISTORY: See below PHYSICAL EXAM: VITALS: Vitals are noted on the nurse's note and reviewed by myself. Vital signs stable. GENERAL: 64-year-old male, in no acute distress, nondiaphoretic, well-developed well-nourished. SKIN: The skin was without rashes, erythema, edema, or bruising. HEAD: Normocephalic atraumatic. EYES: Pupils equal round and reactive to light and accommodation. Conjunctivae without injection, sclerae without icterus. Extraocular movements intact. NOSE: Patent, turbinates without inflammation or discharge. No sinus tenderness. MOUTH: Mucous membranes moist. No tonsillar hypertrophy. Pharynx without erythema or exudate. Uvula midline. Airway patent. Tongue does not deviate. NECK: Supple without nuchal rigidity. No lymphadenopathy. Cervical spine is nontender. No JVD. HEART: Regular rate and rhythm without murmurs gallops or rubs. LUNGS: Clear to auscultation bilaterally without wheezes, rales or rhonchi. No retractions or accessory muscle use. ABDOMEN: Positive bowel sounds x 4. Soft, nontender, without masses or organomegaly. Bright sign negative. No guarding or rebound tenderness. MUSCULOSKELETAL: No muscle atrophy, erythema, or edema noted. Normal gait. Strength 5/5 throughout. NEURO: Patient was alert and oriented to person place and time. No focal neurological deficits. DIFFERENTIAL DIAGNOSIS: Viral syndrome, strep pharyngitis, tonsillitis, mononucleosis, retropharyngeal abscess, peritonsillar abscess, otitis media, sinusitis, bronchitis, pneumonia, as well as other pathologies. ED COURSE AND MEDICAL DECISION MAKING: HISTORY FROM INDEPENDENT HISTORIAN: at bedside serving as secondary historian. MEDICATIONS GIVEN: 1 L NSS bolus, 50 mg IV Toradol, 1000 mg p.o. acetaminophen INTERPRETATION OF LABS: I interpreted the labs with full lab results as below in the lab section of this note. Pertinent lab results discussed in the MDM section below. INTERPRETATION OF IMAGING: Imaging studies were interpreted by myself and read by radiology as per the imaging section of this note. MDM SUMMARY: The patient is a pleasant, 64-year-old male who arrives to the emergency department for evaluation of the above-stated complaint. Initial workup was performed in triage. Saline lock was established, basic lab work was obtained. Lab work shows no leukocytosis, no anemia. CMP shows hyponatremia 127, elevated BUN 29, creatinine 1.87. Patient was prescribed Bactrim, at urgent care, for concern for upper respiratory infection. This in addition to the patient's CKD history, is likely the cause of the elevated BUN and creatinine. Patient was provided 1 L NSS bolus. Repeat BMP was obtained, showing persistent hyponatremia, with minimal improvement in creatinine. Chest x-ray imaging was obtained which per my interpretation shows suspected mild pulmonary edema, however patient has clear lung sounds. Due to patient's acute on chronic kidney injury, as well as hyponatremia, he will require admission to the hospital. I discussed the patient with Dr. Horne, from the [facility] hospitalist group, who agreed to evaluate accept the patient for admission. Please refer to his documentation for further patient workup and care. DIAGNOSIS: Hyponatremia, acute on chronic kidney injury The chart was completed utilizing [employer] Speech voice recognition software. Grammatical errors, random word insertions, pronoun errors, and incomplete sentences are an occasional consequence of this system due to software limitations, ambient noise, and hardware issues. Any formal questions or concerns about the content, text, or information contained within the body of this dictation should be directly addressed to the provider for clarification. Past Med/Surg History Problem List (Updated 03/08/25 @ 21:59 by TREY Castañeda) Acute kidney injury superimposed on chronic kidney disease (Acute) Acute hyponatremia (Acute) Tear of medial meniscus of right knee Acute kidney injury superimposed on CKD Postoperative anemia due to acute blood loss Diabetes mellitus, type II Neurogenic claudication due to lumbar spinal stenosis Encounter for pre-operative examination Pulmonary nodules CKD (chronic kidney disease), stage III Follows with [facility] nephrology Hyperlipidemia Hypertension CAD (coronary artery disease) s/p CABG x3 (05/2020) Follows with [facility] + Dr. Renteria/Lester Status post lumbar surgery (Acute) 03/17/21 posterior L3-L5 decompression and fusion Grade 1 view, glidescope 3, ETT 8. 2022, lumbar fusion w/hardware removal and replacement Diabetes NIDDM, controlled, stable per pt Medical History Scarring of lung 1993- had double PNA resulting in scar tissue, had previously been monitored and stable findings/no changes De Quervain's disease (tenosynovitis) Hx 1984, "resolved" Steatosis of liver Per [facility] records, patient unaware Myocardial infarction 04/2020 (during cervical spine fusion) > cath/CABG Spinal stenosis History of COVID-19 01/2020 - chills, pharyngitis, fatigue, cough, low grade fever and malaise > symptoms fully resolved Surgical History Hx of colonoscopy Hx of hand surgery Toni contracture and trigger finger Hx of cardiac cath 04/2020 > 05/2020 CABG x3 Hx of cervical spine surgery 04/2020 C5-7 > complicated by inferior infarct per [facility] records, subsequent cath and CABGx3 (05/2020) Hx of CABG CABG x3 (05/2020) Family History Father Heart disease Social History Smoking Status: Never smoker Tobacco Type: Cigarettes Second Hand Exposure: Yes (hx as a child); Do You Dip or Chew Tobacco: No (Hx as teen); Hx Alcohol Use: Yes Hx Substance Use: No Preferred Language: Albanian Communication Ability: Effective Cannon Crewmember Required: No Beliefs That Will Affect Care: None marital status: Current Living Situation: Spouse and Family How many Children do You have: 2 Feels Safe at Home: Yes Assistive Devices: Glasses Allergies Allergies Allergy/AdvReac Type Severity Reaction Status Date / Time bee venom protein (honey bee) Allergy Severe Anaphylaxis- Verified 03/08/25 15:33 yellow jackets shellfish derived Allergy Severe Anaphylaxis Verified 03/08/25 15:33 erythromycin base AdvReac Mild nausea and Verified 03/08/25 15:33 vomiting Home Meds Home Medications Medication Instructions Recorded Confirmed metformin 1,000 mg tablet 500 mg PO BID 11/17/19 03/08/25 rosuvastatin 20 mg tablet 20 mg PO QAM 11/17/19 03/08/25 cholecalciferol (vitamin D3) 25 25 mcg PO QAM 02/18/21 03/08/25 mcg (1,000 unit) chewable tablet (Vitamin D3) cyanocobalamin (vitamin B-12) 1,000 mcg PO QAM 02/18/21 03/08/25 1,000 mcg tablet,extended release (Vitamin B-12 ER) lisinopril 5 mg tablet 5 mg PO QAM 03/17/21 03/08/25 aspirin 81 mg capsule 81 mg PO QAM 05/08/23 03/08/25 semaglutide 1 mg/dose (4 mg/3 mL) 1 mg subcut Q7D 05/08/23 03/08/25 subcutaneous pen injector (Ozempic) duloxetine 30 mg capsule,delayed 30 mg PO DAILY 03/08/25 03/08/25 release sildenafil 100 mg tablet 100 mg PO DAILY PRN Other 03/08/25 03/08/25 sulfamethoxazole 800 1 tab PO BID 03/08/25 03/08/25 mg-trimethoprim 160 mg tablet Results & Data (ED) Vital Signs Vital Signs - 24 hr 03/08/25 12:42 03/08/25 14:20 03/08/25 15:59 Temperature 36.4 C L Temperature Source Temporal Artery Scan Pulse Rate 82 Pulse Rate [Radial] 84 76 Pulse Rhythm [Radial] Regular Regular Respiratory Rate 19 16 16 Respiratory Effort / Characteristics Non-Labored Spontaneous Non-Labored Non-Labored Respiratory Depth Normal Normal Normal Respiratory Pattern Regular Regular Blood Pressure 118/74 Blood Pressure [Right Arm] 120/82 115/69 Blood Pressure Mean 88 Blood Pressure Mean [Right Arm] 94 84 Blood Pressure Position Sitting Pulse Oximetry 98 95 97 Oxygen Delivery Method Room Air Room Air Room Air Sepsis Recent Fever Within 48 Hours No Sepsis New/Unexplained Change in Mental Status N/A Sepsis Action Taken by Nursing No Action Required Home Medications Current Medication List: was personally reviewed by me Laboratory Data Attestation: I reviewed the patient's lab results. 03/08/25 12:58 03/08/25 15:10 Lab Results 03/08/25 03/08/25 03/08/25 Range/Units 12:58 12:58 12:58 WBC 6.09 (4.8-10.8) K/ul RBC 5.04 (4.70-6.10) M/uL Hgb 14.4 (14.0-18.0) g/dL Hct 41.2 L (42.0-52.0) % MCV 81.7 (80.0-100.0) fL MCH 28.6 (25.0-34.0) pg MCHC 35.0 (32.0-36.0) g/dL RDW Std Deviation 39.8 (36.4-46.3) fL RDW Coeff of Flora 13.3 (11.5-14.5) % Plt Count 110 L (130-400) K/uL MPV 10.0 (9.4-12.4) fL Immature Gran % (Auto) 0.3 % Neut % (Auto) 81.3 % Lymph % (Auto) 11.8 % Atlantic % (Auto) 5.9 % Eos % (Auto) 0.2 % Baso % (Auto) 0.5 % Neut # (Auto) 4.95 (1.40-6.50) K/uL Lymph # (Auto) 0.72 L (1.20-3.40) K/uL Atlantic # (Auto) 0.36 (0.11-0.59) K/uL Eos # (Auto) 0.01 (0.00-0.50) K/uL Baso # (Auto) 0.03 (0.00-0.20) K/uL Immature Gran # (Auto) 0.02 (0.01-0.20) K/uL Toxic Vacuolation 1+ Polychromasia 1+ Echinocytes 1+ Sodium 127 L (136-145) mmol/L Potassium 5.0 (3.5-5.1) mmol/L Chloride 91 L (98-107) mmol/L Carbon Dioxide 29 (21-32) mmol/L Anion Gap 7 (3-11) BUN 29 H (6-23) mg/dl Creatinine 1.87 H (0.6-1.4) mg/dl Est Cr Clr Drug Dosing 42.1 ml/min eGFR 39.90 BUN/Creatinine Ratio 15.5 (10-20) Glucose 132 H (70-99(Fasting)) mg/dl Osmolality (280-300) mOsm/kg Calcium 9.5 (8.6-10.3) mg/dl Magnesium 1.6 L (1.7-2.4) mg/dl Total Bilirubin 0.6 (0.2-1.0) mg/dl AST 58 H (13-39) U/L ALT 52 (7-52) U/L Alkaline Phosphatase 85 (34-104) U/L Total Protein 7.2 (6.0-8.3) gm/dl Albumin 3.9 (3.4-5.0) gm/dl Globulin 3.3 (2.5-4.0) gm/dl Albumin/Globulin Ratio 1.2 (0.9-2) Anaplasma Smear See Comment Cancelled Babesia Smear See Comment Cancelled Lyme Disease Screen Negative (Negative) SARS-CoV-2 (PCR) (Negative) Influenza Type A (PCR) (Neg) Influenza Type B (PCR) (Neg) RSV (RT-PCR) (Neg) 03/08/25 03/08/25 03/08/25 Range/Units 13:23 13:39 15:10 WBC (4.8-10.8) K/ul RBC (4.70-6.10) M/uL Hgb (14.0-18.0) g/dL Hct (42.0-52.0) % MCV (80.0-100.0) fL MCH (25.0-34.0) pg MCHC (32.0-36.0) g/dL RDW Std Deviation (36.4-46.3) fL RDW Coeff of Flora (11.5-14.5) % Plt Count (130-400) K/uL MPV (9.4-12.4) fL Immature Gran % (Auto) % Neut % (Auto) % Lymph % (Auto) % Atlantic % (Auto) % Eos % (Auto) % Baso % (Auto) % Neut # (Auto) (1.40-6.50) K/uL Lymph # (Auto) (1.20-3.40) K/uL Atlantic # (Auto) (0.11-0.59) K/uL Eos # (Auto) (0.00-0.50) K/uL Baso # (Auto) (0.00-0.20) K/uL Immature Gran # (Auto) (0.01-0.20) K/uL Toxic Vacuolation Polychromasia Echinocytes Sodium 126 L (136-145) mmol/L Potassium 4.6 (3.5-5.1) mmol/L Chloride 95 L (98-107) mmol/L Carbon Dioxide 25 (21-32) mmol/L Anion Gap 6 (3-11) BUN 30 H (6-23) mg/dl Creatinine 1.67 H (0.6-1.4) mg/dl Est Cr Clr Drug Dosing 47.1 ml/min eGFR 45.70 BUN/Creatinine Ratio 18.0 (10-20) Glucose 111 H (70-99(Fasting)) mg/dl Osmolality 275 L (280-300) mOsm/kg Calcium 8.6 (8.6-10.3) mg/dl Magnesium 1.5 L (1.7-2.4) mg/dl Total Bilirubin (0.2-1.0) mg/dl AST (13-39) U/L ALT (7-52) U/L Alkaline Phosphatase (34-104) U/L Total Protein (6.0-8.3) gm/dl Albumin (3.4-5.0) gm/dl Globulin (2.5-4.0) gm/dl Albumin/Globulin Ratio (0.9-2) Anaplasma Smear Babesia Smear Lyme Disease Screen (Negative) SARS-CoV-2 (PCR) NEGATIVE (Negative) Influenza Type A (PCR) Negative (Neg) Influenza Type B (PCR) Negative (Neg) RSV (RT-PCR) Negative (Neg) Administered Medications Acetaminophen (Acetaminophen 325 Mg Tab) 650 mg PO Q4H PRN PRN Reason: pain/fever Stop: 04/07/25 18:46 Last Admin: 03/08/25 21:21 Dose: 650 mg Documented By: ksy Heparin Sodium (Porcine) (Heparin Sod 5,000 Unit/0.5 Ml Vial) 5,000 units SQ Q12 LYNDSEY Stop: 04/07/25 20:59 Last Admin: 03/08/25 21:29 Dose: 5,000 units Documented By: becca Insulin Aspart (Insulin Aspart Per Unit Charge) 0 units SC ACHS LYNDSEY Stop: 04/07/25 20:59 Last Admin: 03/08/25 21:29 Dose: 1 units Documented By: becca Co-signed By: JEFFREY Urea (Urea (Urea-Na) 15 Gm Pack) 15 gm PO BID LYNDSEY Stop: 04/07/25 20:59 Last Admin: 03/08/25 21:30 Dose: 15 gm Documented By: becca Discontinued Medications Acetaminophen (Acetaminophen 500 Mg Tab) 1,000 mg PO NOW STA Stop: 03/08/25 13:13 Last Admin: 03/08/25 13:29 Dose: 1,000 mg Documented By: SILVIA Sodium Chloride (Nss) 1,000 mls @ 999 mls/hr IV .Q1H1M ONE Stop: 03/08/25 14:12 Last Infusion: 03/08/25 14:32 Dose: Infused Documented By: Admin: 03/08/25 13:29 Dose: 999 mls/hr Documented By: SILVIA Magnesium Sulfate/Dextrose (Magnesium Sulfate / D5w) 1 gm in 100 mls @ 50 mls/hr IV Q2H LYNDSEY Stop: 03/08/25 20:14 Last Admin: 03/08/25 20:05 Dose: 50 mls/hr Documented By: becca Infusion: 03/08/25 18:42 Dose: Infused Documented By: becca Admin: 03/08/25 16:42 Dose: 50 mls/hr Documented By: raymond Ketorolac Tromethamine (Ketorolac Tromethamine 15 Mg/Ml Vial) 15 mg IV NOW ONE Stop: 03/08/25 13:13 Last Admin: 03/08/25 13:29 Dose: 15 mg Documented By: SILIVA Magnesium Oxide (Magnesium Oxide 400 Mg Tab) 400 mg PO ONCE ONE Stop: 03/08/25 14:57 Last Admin: 03/08/25 15:14 Dose: 400 mg Documented By: KAYLA Imaging Data Attestation: I personally reviewed and interpreted this imaging study as follows: Radiologist's Impression: Chest X-Ray 03/08/25 13:12 Technique: A frontal view of the chest was obtained Findings: There is suspected mild pulmonary edema. The heart size is within normal limits. No pleural effusion or pneumothorax is seen. There is a dense nodule in the right midlung, likely a benign calcified granuloma No fracture is noted. Sternal wires and plates are present. There is a cervical fusion Impression: Suspected mild pulmonary edema ACT 112: Positive. There are findings on this exam that require communication between the performing entity and the patient following Patient Test Result Information Act ([place] ACT 112) guidelines. Electronically signed by Ryan Hernandez 03-08-2025 2:03 PM Discharge Plan Visit Data Chief Complaint: Flu Like Symptoms Stated Complaint: FLU LIKE SX, WORSENING, MEDICATION REACTION ED Provider: Dino Royal ED Midlevel Provider: Carmencita Summers Discharge Problem: Acute hyponatremia, Acute kidney injury superimposed on chronic kidney disease Patient Disposition: Admitted As Inpatient Condition: Fair Discharge Instructions Interventions: ED Discharge Assessment Last Done: 03/08/25 18:07
[2025-03-08 13:18] LABS: Hematocrit (blood only) 41.2 % (42.0-52.0); Hemoglobin 14.4 g/dL (14.0-18.0); Mean Corpuscular Hemoglobin 28.6 pg (25.0-34.0); Mean Corpuscular Volume 81.7 fL (80.0-100.0); Platelet Count 110 K/uL (130-400); RDW Standard Deviation 39.8 fL (36.4-46.3); Red Blood Count 5.04 M/uL (4.70-6.10); White Blood Count 6.09 K/ul (4.8-10.8)
[2025-03-08 13:25] LABS: Alanine Aminotransferase 52.0 U/L (7-52); Albumin Globulin Ratio 1.2 (0.9-2); Albumin Level 3.9 gm/dl (3.4-5.0); Alkaline Phosphatase 85.0 U/L (34-104); Anion Gap 7.0 (3-11); Bilirubin,Total 0.6 mg/dl (0.2-1.0); Blood Urea Nitrogen 29.0 mg/dl (6-23); Calcium 9.5 mg/dl (8.6-10.3); Carbon Dioxide 29.0 mmol/L (21-32); Chloride 91.0 mmol/L (98-107); Creatinine Clr Calc Pharmacy 42.1 ml/min; Globulin 3.3 gm/dl (2.5-4.0); Glucose 132.0 mg/dl (70-99(Fasting)); Potassium 5.0 mmol/L (3.5-5.1); Sodium 127.0 mmol/L (136-145); Total Protein 7.2 gm/dl (6.0-8.3)
[2025-03-08] MEDS: ACETAMINOPHEN 500 MG TAB PO STA (13:29)
[2025-03-08] MEDS: KETOROLAC TROMETHAMINE 15 MG/ML VIAL IV ONE (13:29)
[2025-03-08] MEDS: SODIUM CHLORIDE 0.9% 1,000 ML IV ONE (13:29)
--- NOTE | 2025-03-08 14:03 | XRay Report ---
Technique: A frontal view of the chest was obtained Findings: There is suspected mild pulmonary edema. The heart size is within normal limits. No pleural effusion or pneumothorax is seen. There is a dense nodule in the right midlung, likely a benign calcified granuloma No fracture is noted. Sternal wires and plates are present. There is a cervical fusion Impression: Suspected mild pulmonary edema ACT 112: Positive. There are findings on this exam that require communication between the performing entity and the patient following Patient Test Result Information Act ([place] ACT 112) guidelines. Electronically signed by Ryan Hernandez 03-08-2025 2:03 PM
[2025-03-08 14:08] LABS: Immature Granulocytes # (auto) 0.02 K/uL (0.01-0.20); Immature Granulocytes % (auto) 0.3 %; Polychromasia 1+; Toxic Vacuolation 1+
[2025-03-08 14:27] LABS: Influenza A virus by PCR Negative (Neg); Influenza B virus by PCR Negative (Neg); SARS CoV2 RNA(COVID-19) Ceph NEGATIVE (Negative)
[2025-03-08 14:43] LABS: Magnesium 1.6 mg/dl (1.7-2.4)
[2025-03-08] MEDS: MAGNESIUM OXIDE 400 MG TAB PO ONE (15:14)
[2025-03-08 15:47] LABS: Anion Gap 6.0 (3-11); Blood Urea Nitrogen 30.0 mg/dl (6-23); Calcium 8.6 mg/dl (8.6-10.3); Carbon Dioxide 25.0 mmol/L (21-32); Chloride 95.0 mmol/L (98-107); Creatinine Clr Calc Pharmacy 47.1 ml/min; Glucose 111.0 mg/dl (70-99(Fasting)); Magnesium 1.5 mg/dl (1.7-2.4); Potassium 4.6 mmol/L (3.5-5.1); Sodium 126.0 mmol/L (136-145)
--- NOTE | 2025-03-08 16:18 | History & Physical Report ---
Date of Service March 08, 2025 Assessment & Plan (1) Acute kidney injury superimposed on CKD: (2) Diabetes mellitus, type II: (3) Hypertension: (4) CAD (coronary artery disease): (5) Steatosis of liver: Plan 64 yo male with pmhx DM Type 2, HLD, HTN, CAD s/p CABG, CKD stage 3a, cervical spinal stenosis presents for confusion and weakness for past 2 weeks 2/2 suspected viral illness causing hyponatremia. #Hypovolemic Hypoosmolar Hyponatremia #FABIOLA on CKD Stage 3a -urine studies pending, has not made enough urine -appears hypovolemic on exam, sodium did not budge wtih fluids but creatinine improved -could be AIN 2/2 bactrim, prerenal 2/2 viral illness -could be trimethoprim associated hyponatremia vs. SIADH vs. volume depletion, without urine studies hard to assess status Plan: -hold further fluid resuscitation -check UA, urine and serum osmoles, urine sodium/creatinine -may need straight cathed if cant make more urine -hold bactrim, lisinopril -may need salt tabs pending urine study results vs. additional fluids #DM Type 2 -ssi -hold metformin #HLD -continue statin #HTN -hold lisinopril #CAD s/p CABG -continue aspirin, statin #Cervical Spinal Stenosis -continue duloxetine #R/o MASH -patient with elevated AST and low platelets -f/u outpatient I spent a total of 80 minutes in direct patient care, including [id number] time with the patient and/or family, reviewing medical records, ordering and reviewing diagnostic tests, and coordinating care with other healthcare providers. This time includes: history taking, physical examination, medical decision making, counseling, ECG interpretation, imaging interpretation, lab interpretation, orders, and education, excluding time spent in the performance of separately billed services. History of Present Illness Chief Complaint: -hyponatremia Primary Care Provider: AGUEDA Meza-C 64 yo male with pmhx DM Type 2, HLD, HTN, CAD s/p CABG, CKD stage 3a, cervical spinal stenosis presents for confusion and weakness for past 2 weeks. Has had no medical admissions at [facility]. In the ED, given fluids with worsening of Na, given toradol, admitted to medicine for further workup. Patient seen and examined at bedside. Patient states for past 2 weeks has had headache, some nasal drainage, nausea, skin sensitivitiy. He states his skin gets sensitive when he gets sick. He states he likely has had sick contacts. Denies SOB, chest pain, diarrhea, other associated symptoms. Does endorse some mild confusion and sweating. No tobacco use, no drug use, no alcohol use, full code. Allergies Allergy/AdvReac Type Severity Reaction Status Date / Time bee venom protein (honey bee) Allergy Severe Anaphylaxis- Verified 03/08/25 15:33 yellow jackets shellfish derived Allergy Severe Anaphylaxis Verified 03/08/25 15:33 erythromycin base AdvReac Mild nausea and Verified 03/08/25 15:33 vomiting Home Medications Medication Instructions Recorded Confirmed Type metformin 1,000 mg tablet 500 mg PO BID 11/17/19 03/08/25 History rosuvastatin 20 mg tablet 20 mg PO QAM 11/17/19 03/08/25 History cholecalciferol (vitamin D3) 25 25 mcg PO QAM 02/18/21 03/08/25 History mcg (1,000 unit) chewable tablet (Vitamin D3) cyanocobalamin (vitamin B-12) 1,000 mcg PO QAM 02/18/21 03/08/25 History 1,000 mcg tablet,extended release (Vitamin B-12 ER) lisinopril 5 mg tablet 5 mg PO QAM 03/17/21 03/08/25 History aspirin 81 mg capsule 81 mg PO QAM 05/08/23 03/08/25 History semaglutide 1 mg/dose (4 mg/3 mL) 1 mg subcut Q7D 05/08/23 03/08/25 History subcutaneous pen injector (Ozempic) duloxetine 30 mg capsule,delayed 30 mg PO DAILY 03/08/25 03/08/25 History release sildenafil 100 mg tablet 100 mg PO DAILY PRN Other 03/08/25 03/08/25 History sulfamethoxazole 800 1 tab PO BID 03/08/25 03/08/25 History mg-trimethoprim 160 mg tablet Past Med/Surg History Problem List (Updated 01/23/24 @ 00:07 by Background Daemon) Tear of medial meniscus of right knee Acute kidney injury superimposed on CKD Postoperative anemia due to acute blood loss Diabetes mellitus, type II Neurogenic claudication due to lumbar spinal stenosis Encounter for pre-operative examination Pulmonary nodules CKD (chronic kidney disease), stage III Follows with [facility] nephrology Hyperlipidemia Hypertension CAD (coronary artery disease) s/p CABG x3 (05/2020) Follows with [facility] + Dr. Renteria/Lester Status post lumbar surgery (Acute) 03/17/21 posterior L3-L5 decompression and fusion Grade 1 view, glidescope 3, ETT 8. 2022, lumbar fusion w/hardware removal and replacement Diabetes NIDDM, controlled, stable per pt Medical History Pulmonary nodules Scarring of lung 1993- had double PNA resulting in scar tissue, had previously been monitored and stable findings/no changes CKD (chronic kidney disease), stage III Follows with [facility] nephrology De Quervain's disease (tenosynovitis) Hx 1984, "resolved" Steatosis of liver Per [facility] records, patient unaware CAD (coronary artery disease) s/p CABG x3 (05/2020) Follows with [facility] + Dr. Renteria/Lester Myocardial infarction 04/2020 (during cervical spine fusion) > cath/CABG Spinal stenosis Hyperlipidemia Hypertension History of COVID-19 01/2020 - chills, pharyngitis, fatigue, cough, low grade fever and malaise > symptoms fully resolved Diabetes NIDDM, controlled, stable per pt Surgical History Status post lumbar surgery 03/17/21 posterior L3-L5 decompression and fusion Grade 1 view, glidescope 3, ETT 8. 2022, lumbar fusion w/hardware removal and replacement Hx of colonoscopy Hx of hand surgery Toni contracture and trigger finger Hx of cardiac cath 04/2020 > 05/2020 CABG x3 Hx of cervical spine surgery 04/2020 C5-7 > complicated by inferior infarct per [facility] records, subsequent cath and CABGx3 (05/2020) Hx of CABG CABG x3 (05/2020) Family History Father Heart disease Social History Smoking Status: Never smoker Tobacco Type: Cigarettes Second Hand Exposure: Yes (hx as a child); Do You Dip or Chew Tobacco: No (Hx as teen); Hx Alcohol Use: Yes Hx Substance Use: No Preferred Language: Chinese Communication Ability: Effective Wire Worker Required: No Beliefs That Will Affect Care: None marital status: Current Living Situation: Spouse and Family How many Children do You have: 2 Feels Safe at Home: Yes Assistive Devices: Glasses Review of Systems Review of Systems: -negative unless listed above Physical Exam Physical Exam: Gen: A&O 3 NAD HEENT: NCAT, EOMI, not icteric. External ears normal. No rhinorrhea. Dry mucous membranes. Flushed face Neck: Supple, full range of motion, no observable masses, No meningeal sign. Lungs: No Respiratory distress. CV: RRR, no edema. Abdomen: trace epigastric tenderness MSK: No joint swelling, no redness. Skin: No rashes, petechiae, lesions. Normal color per patient. Neuro: Normal Gait, Grossly intact. Psych: Appropriate for situation. Results & Data Results & Data Vital Signs (Past 12 Hours) Vital Signs Temp Pulse Pulse Resp BP BP Pulse Ox 03/08/25 15:59 76 16 115/69 97 03/08/25 14:20 84 16 120/82 95 03/08/25 12:42 36.4 C L 82 19 118/74 98 O2 Del Method 03/08/25 15:59 Room Air 03/08/25 14:20 Room Air 03/08/25 12:42 Room Air Laboratory Results -personally reviewed, Na of 126 down from 127 with fluids, creatinine of 1.67 downtitrated with fluids, serum osmoles of 275 consistent with hypoosmolar hyponatremia, Mg of 1.5 replenished Medications Administered Magnesium Sulfate/Dextrose (Magnesium Sulfate / D5w) 1 gm in 100 mls @ 50 mls/hr IV Q2H LYNDSEY Stop: 03/08/25 20:14 Last Admin: 03/08/25 16:42 Dose: 50 mls/hr Documented By: sak Code Status & VTE Plan Code Status -full code VTE Prophylaxis Plan VTE Prophylaxis will be ordered: Yes
[2025-03-08] MEDS: MAGNESIUM SULFATE / D5W 1 GM/100 ML BAG IV SCH (16:42)
[2025-03-08] MEDS ORDERED: DEXTROSE 50% 50 ML SYRINGE IV PRN (17:26)
[2025-03-08] MEDS ORDERED: CARBOHYDRATES FOR HYPOGLYCEMIA PO PRN (17:26)
[2025-03-08] MEDS ORDERED: GLUCAGON FOR INJ 1 MG VIAL SQ PRN (17:26)
[2025-03-08] MEDS ORDERED: GLUCOSE 40% GEL 15 GM TUBE PO PRN (17:26)
[2025-03-08] MEDS ORDERED: GLUCOSE 10 TAB/TUBE PO PRN (17:26)
[2025-03-08 17:33] LABS: Chlamydia pneumoniae PCR Not Detected (NotDetected); Coronavirus 229E PCR Not Detected (NotDetected); Coronavirus CoV-2 (COVID19)PCR Not Detected (NotDetected); Coronavirus HKU1 PCR Not Detected (NotDetected); Coronavirus NL63 PCR Not Detected (NotDetected); Coronavirus OC43PCR Not Detected (NotDetected); Human Metapneumovirus PCR Not Detected (NotDetected); Parainfluenza Virus 1 PCR Not Detected (NotDetected); Parainfluenza Virus 2 PCR Not Detected (NotDetected); Parainfluenza Virus 3 PCR Not Detected (NotDetected); Parainfluenza Virus 4 PCR Not Detected (NotDetected); Respiratory Syncytial VirusPCR Not Detected (NotDetected); Rhinovirus/Enterovirus PCR Not Detected (NotDetected)
[2025-03-08 18:13] LABS: Appearance Urine Clear (Clear); Bacteria Urine Automated None Seen (None Seen); Epithelial Cell Urine Auto 0-2 /hpf (0-2); Glucose Urine UA Negative (Negative); WBC Urine Automated 0-5 /hpf (0-5)
[2025-03-08] MEDS ORDERED: POLYETHYLENE (MIRALAX) 17 GM PACK PO PRN (18:47)
--- NOTE | 2025-03-08 19:47 | CT Scan Report ---
Exam: The abdomen pelvis without contrast. Exam reason: Nausea, vomiting. Comparison: 01/08/2024. Technique: Multiple transaxial images of the abdomen pelvis were obtained without contrast. Findings: The visualized portions of the lung bases are unremarkable. No focal abnormalities noted within the liver or spleen. Multiple punctate calcifications are noted throughout the spleen. Adrenals and pancreas are within normal limits. The gallbladder is unremarkable. There is no evidence of obstructing stone or hydronephrosis. The bowel loops are of normal caliber. The bladder is unremarkable. There is no free air, free fluid or inflammatory change. The appendix is normal in course and caliber. The patient is status post posterior fusion of L2-L5 along with posterior decompression. No acute bony adenopathy is identified. Impression: 1. Unremarkable abdomen and pelvis. 2. Multiple punctate calcifications are again seen within the spleen. This is likely related to prior granulomatous infection. Electronically signed by Fabricio Noriega 03-08-2025 7:42 PM
[2025-03-08] MEDS: ACETAMINOPHEN 325 MG TAB PO PRN (21:21)
[2025-03-08] MEDS: HEPARIN SOD 5,000 UNIT/0.5 ML VIAL SQ SCH (21:29)
[2025-03-08] MEDS: INSULIN ASPART PER UNIT CHARGE SC SCH (21:29)
[2025-03-08] MEDS: UREA (UREA-NA) 15 GM PACK PO SCH (21:30)
[2025-03-08] MEDS: ONDANSETRON INJ 2 MG/ML 2 ML VIAL IV PRN (23:11)
[2025-03-09] MEDS: PROMETHAZINE 12.5 MG/50.5 ML BAG IV STA (05:37)
--- NOTE | 2025-03-09 07:59 | Hospitalist Progress Note ---
Date of Service March 09, 2025 Assessment & Plan (1) Acute kidney injury superimposed on CKD: (2) Diabetes mellitus, type II: (3) Hypertension: (4) CAD (coronary artery disease): (5) Steatosis of liver: Plan Per admitting provider w/ addendum: 64 yo male with pmhx DM Type 2, HLD, HTN, CAD s/p CABG, CKD stage 3a, cervical spinal stenosis presents for confusion and weakness for past 2 weeks 2/2 suspected viral illness causing hyponatremia. Pt seen in follow up of hyponatremia Per repot hx of viral illness, was started on Bactrim at urgent care on Monday, he has been feeling unwell and with on and off fevers at home since late Monday Overnight after admission, spiked fever at 38.8C #Hypovolemic Hypoosmolar Hyponatremia #FABIOLA on CKD Stage 3a -urine studies pending, has not made enough urine -appears hypovolemic on exam, sodium did not budge wtih fluids but creatinine improved -could be AIN 2/2 bactrim, prerenal 2/2 viral illness -could be trimethoprim associated hyponatremia vs. SIADH vs. volume depletion, without urine studies hard to assess status Plan: -hold further fluid resuscitation -check UA, urine and serum osmoles, urine sodium/creatinine -may need straight cathed if cant make more urine -hold bactrim, lisinopril -may need salt tabs pending urine study results vs. additional fluids Fever - unclear etiology - pt been on Bactrim for several days - reports having rhinorrhea, diarrhea - Blood cultures pending - WBC not elevated - procalcitonin elevated - UA negative - biofire resp. negative - Tick born panel pending, so far negative - stool pcr, c.diff - uncollected - Pt has a pilonidal cyst, bottocks erythematous and pt repots discomfort sitting on it, also some poss. yellow drainage. Will consult with ge. surg. #DM Type 2 -ssi -hold metformin #HLD -continue statin #HTN -hold lisinopril #CAD s/p CABG -continue aspirin, statin #Cervical Spinal Stenosis -continue duloxetine #R/o MASH -patient with elevated AST and low platelets -f/u outpatient Admission and Anticipated Discharge Date Admission Date: March 08, 2025 Subjective Pt seen in follow up of hyponatremia Per repot hx of viral illness, was started on Bactrim at urgent care Overnight after admission, spiked fever at 38.8C Currently lying in bed, feeling fatigued Says last Monday he was out in restaurant, then in the evening had diarrhea, been feeling unwell with fevers on and off. On Monday went to urgent care and started taking Bactrim. Didn't feel improved so presented to ED. Has hx of pilonidal cyst, says it's uncomfortable to sit on, but not aware of any recent drainage or significant pain. Reports mild rhinorrhea, headache. No significant cough. No chest pain. Procalcitonin ordered this AM - elevated Blood cultx obtained overnight - pending Will discuss further w/ nephrology re: hyponatremia, and with gen. surg. re: pilonidal cyst, as no clear source of infection yet. Review of Systems Review of Systems: All systems reviewed & are unremarkable except as noted in Subjective Physical Exam Physical Exam: Gen: A&O 3 NAD, appears fatigued HEENT: NCAT, EOMI, not icteric. External ears normal. Neck: Supple, full range of motion, no observable masses Lungs: No Respiratory distress. CV: RRR, no edema. Abdomen: minimal epigastric tenderness MSK: No joint swelling, no redness. Skin: No rashes, petechiae, lesions. Normal color per patient. Neuro: Awake, alert, answers appropriately, speech fluent, moves extremities Psych: Appropriate for situation. Results & Data Results & Data Vital Signs (Past 12 Hours) Vital Signs Temp Pulse Resp BP Pulse Ox O2 Del Method 03/09/25 07:01 37.5 C 90 20 121/72 95 Room Air 03/08/25 22:00 38.8 C H 93 H 18 119/71 96 Room Air Laboratory Results 03/10/25 03/09/25 03/09/25 Range/Units 08:08 20:33 19:32 WBC (4.8-10.8) K/ul RBC (4.70-6.10) M/uL Hgb (14.0-18.0) g/dL Hct (42.0-52.0) % MCV (80.0-100.0) fL MCH (25.0-34.0) pg MCHC (32.0-36.0) g/dL RDW Std Deviation (36.4-46.3) fL RDW Coeff of Flora (11.5-14.5) % Plt Count (130-400) K/uL MPV (9.4-12.4) fL Sodium (136-145) mmol/L Potassium (3.5-5.1) mmol/L Chloride (98-107) mmol/L Carbon Dioxide (21-32) mmol/L Anion Gap (3-11) BUN (6-23) mg/dl Creatinine (0.6-1.4) mg/dl Est Cr Clr Drug Dosing ml/min eGFR BUN/Creatinine Ratio (10-20) Glucose (70-99(Fasting)) mg/dl POC Glucose 107 H 120 H (70-99) mg/dl Calcium (8.6-10.3) mg/dl Phosphorus (2.5-4.9) mg/dl Magnesium (1.7-2.4) mg/dl Total Bilirubin (0.2-1.0) mg/dl AST (13-39) U/L ALT (7-52) U/L Alkaline Phosphatase (34-104) U/L Total Protein (6.0-8.3) gm/dl Albumin (3.4-5.0) gm/dl Globulin (2.5-4.0) gm/dl Albumin/Globulin Ratio (0.9-2) Procalcitonin (0-0.5) ng/ml Urine Color Yellow Urine Appearance Clear (Clear) Urine pH 5.5 (4.5-7.5) Ur Specific [place] 1.012 (1.000-1.030) Urine Protein Negative (Negative) Urine Glucose (UA) Negative (Negative) Urine Ketones Negative (Negative) Urine Blood 2+ H (Negative) Urine Nitrite Negative (Negative) Urine Bilirubin Negative (Negative) Urine Urobilinogen Negative (Negative) Ur Leukocyte Esterase Negative (Negative) Urine WBC (Auto) 0-5 (0-5) /hpf Urine RBC (Auto) 0-2 (0-2) /hpf U Hyaline Cast (Auto) 0-2 (0-2) /lpf U Epithel Cells (Auto) 0-2 (0-2) /hpf Urine Bacteria (Auto) None Seen (None Seen) Urine Osmolality 407 L (500-800) mOsm/kg 1203/09/25 03/09/25 Range/Units 17:09 11:37 09:08 WBC 6.96 (4.8-10.8) K/ul RBC 4.48 L (4.70-6.10) M/uL Hgb 12.9 L (14.0-18.0) g/dL Hct 37.5 L (42.0-52.0) % MCV 83.7 (80.0-100.0) fL MCH 28.8 (25.0-34.0) pg MCHC 34.4 (32.0-36.0) g/dL RDW Std Deviation 40.6 (36.4-46.3) fL RDW Coeff of Flora 13.2 (11.5-14.5) % Plt Count 114 L (130-400) K/uL MPV 10.2 (9.4-12.4) fL Sodium 127 L (136-145) mmol/L Potassium 4.8 (3.5-5.1) mmol/L Chloride 93 L (98-107) mmol/L Carbon Dioxide 28 (21-32) mmol/L Anion Gap 6 (3-11) BUN 30 H (6-23) mg/dl Creatinine 1.63 H (0.6-1.4) mg/dl Est Cr Clr Drug Dosing 48.2 ml/min eGFR 47.05 BUN/Creatinine Ratio 18.4 (10-20) Glucose 139 H (70-99(Fasting)) mg/dl POC Glucose 184 H 138 H (70-99) mg/dl Calcium 8.7 (8.6-10.3) mg/dl Phosphorus 2.6 (2.5-4.9) mg/dl Magnesium 1.8 (1.7-2.4) mg/dl Total Bilirubin 0.6 (0.2-1.0) mg/dl AST 41 H (13-39) U/L ALT 39 (7-52) U/L Alkaline Phosphatase 76 (34-104) U/L Total Protein 6.3 (6.0-8.3) gm/dl Albumin 3.4 (3.4-5.0) gm/dl Globulin 2.9 (2.5-4.0) gm/dl Albumin/Globulin Ratio 1.2 (0.9-2) Procalcitonin 5.55 H (0-0.5) ng/ml Urine Color Urine Appearance (Clear) Urine pH (4.5-7.5) Ur Specific [place] (1.000-1.030) Urine Protein (Negative) Urine Glucose (UA) (Negative) Urine Ketones (Negative) Urine Blood (Negative) Urine Nitrite (Negative) Urine Bilirubin (Negative) Urine Urobilinogen (Negative) Ur Leukocyte Esterase (Negative) Urine WBC (Auto) (0-5) /hpf Urine RBC (Auto) (0-2) /hpf U Hyaline Cast (Auto) (0-2) /lpf U Epithel Cells (Auto) (0-2) /hpf Urine Bacteria (Auto) (None Seen) Urine Osmolality (500-800) mOsm/kg Medications Administered Current Inpatient Medications Acetaminophen (Acetaminophen 325 Mg Tab) 650 mg PO Q4H PRN PRN Reason: pain/fever Stop: 04/07/25 18:46 Last Admin: 03/08/25 21:21 Dose: 650 mg Aspirin (Aspirin 81 Mg Chew) 81 mg PO QAM LYNDSEY Stop: 04/08/25 08:59 Dextrose (Dextrose 50% 50 Ml Syringe) 25 - 50 ml IV UD PRN; Protocol PRN Reason: Hypoglycemia Protocol Stop: 04/07/25 17:25 Duloxetine HCl (Duloxetine Hcl 30 Mg Cap) 30 mg PO DAILY [facility] Stop: 04/08/25 08:59 Glucagon (Glucagon For Inj 1 Mg Vial) 1 mg SQ UD PRN; Protocol PRN Reason: Hypoglycemia Protocol Stop: 04/07/25 17:25 Glucose (Glucose 40% Gel 15 Gm Tube) 15 - 30 gm PO UD PRN; Protocol PRN Reason: Hypoglycemia Protocol Stop: 04/07/25 17:25 Glucose (Glucose 10 Tab/Tube) 4 - 8 tab PO UD PRN; Protocol PRN Reason: Hypoglycemia Protocol Stop: 04/07/25 17:25 Guaifenesin (Guaifenesin 600 Mg Tabcr) 600 mg PO Q12 [facility] Stop: 04/08/25 08:59 Heparin Sodium (Porcine) (Heparin Sod 5,000 Unit/0.5 Ml Vial) 5,000 units SQ Q12 LYNDSEY Stop: 04/07/25 20:59 Last Admin: 03/08/25 21:29 Dose: 5,000 units Insulin Aspart (Insulin Aspart Per Unit Charge) 0 units SC ACHS LYNDSEY Stop: 04/07/25 20:59 Last Admin: 03/08/25 21:29 Dose: 1 units Miscellaneous (Carbohydrates For Hypoglycemia ) 15 - 30 gm PO UD PRN PRN Reason: Hypoglycemia Protocol Stop: 04/07/25 17:25 Ondansetron HCl (Ondansetron Inj 2 Mg/Ml 2 Ml Vial) 4 mg IV Q6H PRN PRN Reason: Nausea Stop: 04/07/25 18:46 Last Admin: 03/08/25 23:11 Dose: 4 mg Polyethylene Glycol (Polyethylene (Miralax) 17 Gm Pack) 17 gm PO DAILY PRN PRN Reason: Constipation Stop: 04/07/25 18:46 Rosuvastatin Calcium (Rosuvastatin Calcium 20 Mg Tab) 20 mg PO QAM [facility] Stop: 04/08/25 08:59 Urea (Urea (Urea-Na) 15 Gm Pack) 15 gm PO BID [facility] Stop: 04/07/25 20:59 Last Admin: 03/08/25 21:30 Dose: 15 gm
[2025-03-09] MEDS: ROSUVASTATIN CALCIUM 20 MG TAB PO SCH (09:06)
[2025-03-09] MEDS: guaiFENesin 600 MG TABCR PO SCH (09:07)
[2025-03-09] MEDS: ASPIRIN 81 MG CHEW PO SCH (09:13)
[2025-03-09 09:53] LABS: Hematocrit (blood only) 37.5 % (42.0-52.0); Hemoglobin 12.9 g/dL (14.0-18.0); Mean Corpuscular Hemoglobin 28.8 pg (25.0-34.0); Mean Corpuscular Volume 83.7 fL (80.0-100.0); Platelet Count 114 K/uL (130-400); RDW Standard Deviation 40.6 fL (36.4-46.3); Red Blood Count 4.48 M/uL (4.70-6.10); White Blood Count 6.96 K/ul (4.8-10.8)
[2025-03-09 10:08] LABS: Alanine Aminotransferase 39.0 U/L (7-52); Albumin Globulin Ratio 1.2 (0.9-2); Albumin Level 3.4 gm/dl (3.4-5.0); Alkaline Phosphatase 76.0 U/L (34-104); Anion Gap 6.0 (3-11); Bilirubin,Total 0.6 mg/dl (0.2-1.0); Blood Urea Nitrogen 30.0 mg/dl (6-23); Calcium 8.7 mg/dl (8.6-10.3); Carbon Dioxide 28.0 mmol/L (21-32); Chloride 93.0 mmol/L (98-107); Creatinine Clr Calc Pharmacy 48.2 ml/min; Globulin 2.9 gm/dl (2.5-4.0); Glucose 139.0 mg/dl (70-99(Fasting)); Magnesium 1.8 mg/dl (1.7-2.4); Potassium 4.8 mmol/L (3.5-5.1); Sodium 127.0 mmol/L (136-145); Total Protein 6.3 gm/dl (6.0-8.3)
[2025-03-09] MEDS: MAGNESIUM SULFATE / D5W 1 GM/100 ML BAG IV ONE (12:29)
[2025-03-09] MEDS: PIPERACILLIN/TAZOBACTAM 4.5 GM/100 ML BAG IV ONE (15:01)
[2025-03-09] MEDS: SODIUM CHLORIDE 0.9% 1,000 ML IV SCH (15:02)
[2025-03-09] MEDS: FUROSEMIDE 40 MG/4 ML VIAL IV ONE (15:02)
--- NOTE | 2025-03-09 15:06 | Nephrology Consultation ---
Date of Consultation March 09, 2025 Assessment & Plan (1) Acute hyponatremia: He appears euvolemic currently. Has very very high urine osm of 700 + with serum na only 127. Serum Osm slightly low at 275. 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 gIven higher than usual creat he likely had some volume depletion also. Was not eating solid food but drinking lot of liquids so also creates mismatch. bactrim as the cause for hyponatremia is not common. more often it does high k and higher creat. for now give another 1000 ml NS for salt/volume oad. Also give one dose of lasix 40 iv to breakdown the high urine osm. this has to come down for the serum Na to get higher. he is desperately asking for more liquid. will raise the limit to 1800 ml /day. continue urea. hold Bactrim, Lisinopril for now. Also dont give more NSAIDs. he did get dose of toradol. Check BMP again in AM. repeat urine osm around 5 PM --post lasix dose (2) Acute kidney injury superimposed on chronic kidney disease: Creat on admission was 1.87 compred to 1.3 baseline. but is coming down now to 1.6. likely pre renal State. Continue more IVF. hold Bactrim, Lisinopril for now. Also dont give more NSAIDs. he did get a dose of toradol. Check BMP again in AM repeat UA and urine PCR. Plan time spent 62 mins History of Present Illness Reason for Consultation: Hyponatremia and FABIOLA Attending Physician: Edgard Avendano MD History of Present Illness 64/M with h/o Mild DM2, CAD S/p CABG and CKD 3 A. Came in yesterday with 1-2 week h/o being Sick. NOn specific SYmptoms but says had ---nausea, some diarrhea and also vomiting. Poor appetite but was trying to at least drink. rxed Bactrim few days ago--ni improvement. Also some URI/Sinus symptoms.He also had headache, some nasal drainage, nausea, skin sensitivity. He states his skin gets sensitive when he gets sick. He states he likely has had sick contacts. Denies SOB, chest pain, diarrhea, other associated symptoms. Does endorse some mild confusion and sweating. On Admission creat higher at 1.9 and Na low at 127 and mag low at 1.5 got Some NS and creat improved a bit to 1.6 but na still low at 127. Urine OSM very very high at 700+. Somewhat better. Making urine. Vital signs are fine. ROS--see HPI. 12 Systems otherwise negative Physical Exam Physical Exam: Gen: AAO 3 . NO distress. Normal speech HEENT: Moist mucous membranes. Neck: Supple,no JVD Lungs: No Respiratory distress. b/l clear CV: RRR, no edema. Abdomen: Soft non tender Skin: No rashes, Normal color per patient. Allergies Allergy/AdvReac Type Severity Reaction Status Date / Time bee venom protein (honey bee) Allergy Severe Anaphylaxis- Verified 03/08/25 15:33 yellow jackets shellfish derived Allergy Severe Anaphylaxis Verified 03/08/25 15:33 erythromycin base AdvReac Mild nausea and Verified 03/08/25 15:33 vomiting Home Medications Medication Instructions Recorded Confirmed Type metformin 1,000 mg tablet 500 mg PO BID 11/17/19 03/08/25 History rosuvastatin 20 mg tablet 20 mg PO QAM 11/17/19 03/08/25 History cholecalciferol (vitamin D3) 25 25 mcg PO QAM 02/18/21 03/08/25 History mcg (1,000 unit) chewable tablet (Vitamin D3) cyanocobalamin (vitamin B-12) 1,000 mcg PO QAM 02/18/21 03/08/25 History 1,000 mcg tablet,extended release (Vitamin B-12 ER) lisinopril 5 mg tablet 5 mg PO QAM 03/17/21 03/08/25 History aspirin 81 mg capsule 81 mg PO QAM 05/08/23 03/08/25 History semaglutide 1 mg/dose (4 mg/3 mL) 1 mg subcut Q7D 05/08/23 03/08/25 History subcutaneous pen injector (Ozempic) duloxetine 30 mg capsule,delayed 30 mg PO DAILY 03/08/25 03/08/25 History release sildenafil 100 mg tablet 100 mg PO DAILY PRN Other 03/08/25 03/08/25 History sulfamethoxazole 800 1 tab PO BID 03/08/25 03/08/25 History mg-trimethoprim 160 mg tablet Patient History Medical History Scarring of lung 1993- had double PNA resulting in scar tissue, had previously been monitored and stable findings/no changes De Quervain's disease (tenosynovitis) Hx 1984, "resolved" Steatosis of liver Per [facility] records, patient unaware Myocardial infarction 04/2020 (during cervical spine fusion) > cath/CABG Spinal stenosis History of COVID-19 01/2020 - chills, pharyngitis, fatigue, cough, low grade fever and malaise > symptoms fully resolved Surgical History Hx of colonoscopy Hx of hand surgery Toni contracture and trigger finger Hx of cardiac cath 04/2020 > 05/2020 CABG x3 Hx of cervical spine surgery 04/2020 C5-7 > complicated by inferior infarct per [facility] records, subsequent cath and CABGx3 (05/2020) Hx of CABG CABG x3 (05/2020) Family History Father Heart disease Social History Smoking Status: Never smoker Tobacco Type: Cigarettes Second Hand Exposure: Yes (hx as a child); Do You Dip or Chew Tobacco: No (Hx as teen); Hx Alcohol Use: Yes Hx Substance Use: No Preferred Language: Lithuanian Communication Ability: Effective 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 Tender Required: No Beliefs That Will Affect Care: None marital status: Current Living Situation: Spouse and Family Current Living Situation Comment: and son How many Children do You have: 2 Other Information That Helps Us Care for You: No Feels Safe at Home: Yes Safety Concerns: Feels Safe At This Time Assistive Devices: None Results & Data Vital Signs (Past 12 Hours) Vital Signs Temp Pulse Pulse Resp BP BP Pulse Ox 03/09/25 11:37 120/53 L 03/09/25 11:32 37.1 C 88 16 96/63 L 95 03/09/25 07:01 37.5 C 90 20 121/72 95 O2 Del Method 03/09/25 11:37 03/09/25 11:32 Room Air 03/09/25 07:01 Room Air Diagnostic Findings CBC renal panel.
--- NOTE | 2025-03-09 15:44 | Surgery Consultation ---
Date of Consultation March 09, 2025 Assessment & Plan (1) Pilonidal cyst without abscess: 64-year-old male with history of pilonidal cyst with mild erythema of the gluteal cleft. There is no fluctuance, induration, drainage or palpable abscess on examination. There is no indication for incision and drainage at this time. Recommend conservative management including good local hygiene and keeping the area clean and dry. Recommend frequent repositioning so he is not putting continued pressure on this area while he is laying or sitting. If concerning signs develop, can consider ultrasound of the area. Assessment and plan discussed with Dr. Gillespie. General Surgery will sign off at this time. History of Present Illness Reason for Consultation: Pilonidal cyst Attending Physician: Edgard Avendano MD History of Present Illness Mariann is a 64-year-old male who presented to [facility] ED yesterday for evaluation of flu-like symptoms. He has a past medical history significant for DM Type 2, CKD stage 3, CAD, HTN. He was admitted for acute hyponatremia and fever of unknown origin. Patient states that he was evaluated by an urgent care on Monday and started on an antibiotic, but continued to feel worse. He is aware that he has a pilonidal cyst and reports that it typically does not bother him. He did have to have the area incised and drained in the early . He denies previous excision. He reports some mild discomfort in his gluteal cleft, but believes that it is most likely due to continued pressure on the area from laying in bed. He denies any drainage from the area. Allergies Allergy/AdvReac Type Severity Reaction Status Date / Time bee venom protein (honey bee) Allergy Severe Anaphylaxis- Verified 03/08/25 15:33 yellow jackets shellfish derived Allergy Severe Anaphylaxis Verified 03/08/25 15:33 erythromycin base AdvReac Mild nausea and Verified 03/08/25 15:33 vomiting Home Medications Medication Instructions Recorded Confirmed Type metformin 1,000 mg tablet 500 mg PO BID 11/17/19 03/08/25 History rosuvastatin 20 mg tablet 20 mg PO QAM 11/17/19 03/08/25 History cholecalciferol (vitamin D3) 25 25 mcg PO QAM 02/18/21 03/08/25 History mcg (1,000 unit) chewable tablet (Vitamin D3) cyanocobalamin (vitamin B-12) 1,000 mcg PO QAM 02/18/21 03/08/25 History 1,000 mcg tablet,extended release (Vitamin B-12 ER) lisinopril 5 mg tablet 5 mg PO QAM 03/17/21 03/08/25 History aspirin 81 mg capsule 81 mg PO QAM 05/08/23 03/08/25 History semaglutide 1 mg/dose (4 mg/3 mL) 1 mg subcut Q7D 05/08/23 03/08/25 History subcutaneous pen injector (Ozempic) duloxetine 30 mg capsule,delayed 30 mg PO DAILY 03/08/25 03/08/25 History release sildenafil 100 mg tablet 100 mg PO DAILY PRN Other 03/08/25 03/08/25 History sulfamethoxazole 800 1 tab PO BID 03/08/25 03/08/25 History mg-trimethoprim 160 mg tablet Patient History Medical History Scarring of lung 1993- had double PNA resulting in scar tissue, had previously been monitored and stable findings/no changes De Quervain's disease (tenosynovitis) Hx 1984, "resolved" Steatosis of liver Per [facility] records, patient unaware Myocardial infarction 04/2020 (during cervical spine fusion) > cath/CABG Spinal stenosis History of COVID-19 01/2020 - chills, pharyngitis, fatigue, cough, low grade fever and malaise > symptoms fully resolved Surgical History Hx of colonoscopy Hx of hand surgery Toni contracture and trigger finger Hx of cardiac cath 04/2020 > 05/2020 CABG x3 Hx of cervical spine surgery 04/2020 C5-7 > complicated by inferior infarct per 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 No fluctuance, induration, drainage or palpable abscess. He is not tender with palpation. Constitutional: WD/WN, vitals as above Respiratory: normal respiratory effort; no respiratory distress and no labored breathing Psychiatric: A+Ox3, euthymic affect Results & Data Vital Signs (Past 12 Hours) Vital Signs Temp Pulse Pulse Resp BP BP Pulse Ox 03/09/25 11:37 120/53 L 03/09/25 11:32 37.1 C 88 16 96/63 L 95 03/09/25 07:01 37.5 C 90 20 121/72 95 O2 Del Method 03/09/25 11:37 03/09/25 11:32 Room Air 03/09/25 07:01 Room Air PG Care Time/CCT Total # of Minutes Spent Total Time Spent with Patient: Total time spent is greater than 50% in coordination of care (as documented) at patient's floor/unit and/or counseling patient: Coding Level of Care Code 98715 IN/OBS CONSULT LVL 3,45M Diagnoses Pilonidal cyst without abscess L05.91
[2025-03-09 20:27] LABS: Appearance Urine Clear (Clear); Bacteria Urine Automated None Seen (None Seen); Cast Urine Automated 0-2 /lpf (0-2); Epithelial Cell Urine Auto 0-2 /hpf (0-2); Glucose Urine UA Negative (Negative); RBC Urine Automated 0-2 /hpf (0-2); WBC Urine Automated 0-5 /hpf (0-5)
[2025-03-09] MEDS: PIPERACILLIN/TAZOBACTAM 4.5 GM/100 ML BAG IV SCH (22:03)
[2025-03-10 08:41] LABS: Hematocrit (blood only) 36.7 % (42.0-52.0); Hemoglobin 12.9 g/dL (14.0-18.0); Mean Corpuscular Hemoglobin 29.1 pg (25.0-34.0); Mean Corpuscular Volume 82.8 fL (80.0-100.0); Platelet Count 147 K/uL (130-400); RDW Standard Deviation 40.0 fL (36.4-46.3); Red Blood Count 4.43 M/uL (4.70-6.10); White Blood Count 10.99 K/ul (4.8-10.8)
--- NOTE | 2025-03-10 08:43 | Hospitalist Progress Note ---
Date of Service March 10, 2025 Assessment & Plan (1) Acute kidney injury superimposed on CKD: (2) Diabetes mellitus, type II: (3) Hypertension: (4) CAD (coronary artery disease): (5) Steatosis of liver: Plan Per admitting provider w/ addendum: 64 yo male with pmhx DM Type 2, HLD, HTN, CAD s/p CABG, CKD stage 3a, cervical spinal stenosis presents for confusion and weakness for past 2 weeks 2/2 suspected viral illness causing hyponatremia. Pt seen in follow up of hyponatremia Per repot hx of viral illness, was started on Bactrim at urgent care on Monday, he has been feeling unwell and with on and off fevers at home since late Monday Overnight after admission, spiked fever at 38.8C #Hypovolemic Hypoosmolar Hyponatremia #FABIOLA on CKD Stage 3a -urine studies obtained and repeated after discussing w/ nephrology -appeared hypovolemic on initial exam on admission, sodium did not budge with fluids but creatinine improved -could be prerenal 2/2 viral illness - UA negative x2 -urine and serum osmoles, urine sodium/creatinine -hold bactrim, lisinopril -was started on urea and FR - Nephrology consulted - gave IVF, lasix, cont. FR and urea - current Na improved at 130, Cr 1.5 Fever - unclear etiology - pt been on Bactrim for several days - reports having rhinorrhea, diarrhea - Blood cultures pending - WBC not elevated - procalcitonin elevated - UA negative - biofire resp. negative - Tick born panel pending, so far negative - Stool pcr, c.diff - uncollected - Pt has a pilonidal cyst, buttocks erythematous and pt repots discomfort si tting on it, also some poss. yellow drainage. Will consult with gen. surg. - started zosyn, doxy, cont. for now #DM Type 2 -ssi -hold metformin #HLD -continue statin #HTN -hold lisinopril #CAD s/p CABG -continue aspirin, statin #Cervical Spinal Stenosis -continue duloxetine #R/o MASH -patient with elevated AST and low platelets -f/u outpatient Admission and Anticipated Discharge Date Admission Date: March 08, 2025 Subjective Pt seen in follow up of hyponatremia Per repot hx of viral illness, rhinorrhea, Says last Monday he was out in restaurant, then in the evening had diarrhea, been feeling unwell with fevers on and off -> was started on Bactrim on Monday at urgent care Overnight after admission, spiked fever at 38.8C Has hx of pilonidal cyst, says it's uncomfortable to sit on, but not aware of any recent drainage or significant pain. Gen. surg. consulted - no concerns at this time. Currently lying in bed, feeling little improved since yesterday. Denies chest pain, shortness of breath, or cough. Had mild rhinorrhea and RAHMAN. Denies abd. pain. No BM here, stool studies ordered. Procalcitonin ordered this AM - elevated Blood cultx - pending Nephrology following for hyponatremia Review of Systems Review of Systems: All systems reviewed & are unremarkable except as noted in Subjective Physical Exam Physical Exam: Gen: A&O 3 NAD HEENT: NCAT, EOMI, not icteric. External ears normal. Neck: Supple Lungs: No Respiratory distress. CV: RRR, no edema. Abdomen: soft, obese, nontender MSK: No LE edema, moves extremities Skin: warm, dry Neuro: Awake, alert, answers appropriately, speech fluent, moves extremities Psych: Appropriate for situation. Results & Data Results & Data Vital Signs (Past 12 Hours) Vital Signs Temp Pulse Pulse Resp BP Pulse Ox O2 Del Method 03/10/25 07:48 36.8 C 74 18 98/58 L 95 Room Air 03/10/25 03:47 37.1 C 84 19 92/57 L 94 Room Air 03/10/25 01:07 37.4 C 79 20 111/68 94 Room Air 03/09/25 21:47 77 Laboratory Results 03/10/25 03/10/25 03/09/25 Range/Units 08:08 07:35 20:33 WBC Pending (4.8-10.8) K/ul RBC Pending (4.70-6.10) M/uL Hgb Pending (14.0-18.0) g/dL Hct Pending (42.0-52.0) % MCV Pending (80.0-100.0) fL MCH Pending (25.0-34.0) pg MCHC Pending (32.0-36.0) g/dL RDW Std Deviation (36.4-46.3) fL RDW Coeff of Flora (11.5-14.5) % Plt Count Pending (130-400) K/uL MPV (9.4-12.4) fL Sodium Pending (136-145) mmol/L Potassium Pending (3.5-5.1) mmol/L Chloride Pending (98-107) mmol/L Carbon Dioxide Pending (21-32) mmol/L Anion Gap Pending (3-11) BUN Pending (6-23) mg/dl Creatinine Pending (0.6-1.4) mg/dl Est Cr Clr Drug Dosing Pending ml/min eGFR Pending BUN/Creatinine Ratio Pending (10-20) Glucose Pending (70-99(Fasting)) mg/dl POC Glucose 107 H 120 H (70-99) mg/dl Calcium Pending (8.6-10.3) mg/dl Phosphorus Pending (2.5-4.9) mg/dl Magnesium Pending (1.7-2.4) mg/dl Total Bilirubin Pending (0.2-1.0) mg/dl AST Pending (13-39) U/L ALT Pending (7-52) U/L Alkaline Phosphatase Pending (34-104) U/L Total Protein Pending (6.0-8.3) gm/dl Albumin Pending (3.4-5.0) gm/dl Globulin Pending (2.5-4.0) gm/dl Albumin/Globulin Ratio Pending (0.9-2) Procalcitonin (0-0.5) ng/ml Urine Color Urine Appearance (Clear) Urine pH (4.5-7.5) Ur Specific [place] (1.000-1.030) Urine Protein (Negative) Urine Glucose (UA) (Negative) Urine Ketones (Negative) Urine Blood (Negative) Urine Nitrite (Negative) Urine Bilirubin (Negative) Urine Urobilinogen (Negative) Ur Leukocyte Esterase (Negative) Urine WBC (Auto) (0-5) /hpf Urine RBC (Auto) (0-2) /hpf U Hyaline Cast (Auto) (0-2) /lpf U Epithel Cells (Auto) (0-2) /hpf Urine Bacteria (Auto) (None Seen) Urine Osmolality (500-800) mOsm/kg 03/09/25 03/09/25 03/09/25 Range/Units 19:32 17:09 11:37 WBC (4.8-10.8) K/ul RBC (4.70-6.10) M/uL Hgb (14.0-18.0) g/dL Hct (42.0-52.0) % MCV (80.0-100.0) fL MCH (25.0-34.0) pg MCHC (32.0-36.0) g/dL RDW Std Deviation (36.4-46.3) fL RDW Coeff of Flora (11.5-14.5) % Plt Count (130-400) K/uL MPV (9.4-12.4) fL Sodium (136-145) mmol/L Potassium (3.5-5.1) mmol/L Chloride (98-107) mmol/L Carbon Dioxide (21-32) mmol/L Anion Gap (3-11) BUN (6-23) mg/dl Creatinine (0.6-1.4) mg/dl Est Cr Clr Drug Dosing ml/min eGFR BUN/Creatinine Ratio (10-20) Glucose (70-99(Fasting)) mg/dl POC Glucose 184 H 138 H (70-99) mg/dl Calcium (8.6-10.3) mg/dl Phosphorus (2.5-4.9) mg/dl Magnesium (1.7-2.4) mg/dl Total Bilirubin (0.2-1.0) mg/dl AST (13-39) U/L ALT (7-52) U/L Alkaline Phosphatase (34-104) U/L Total Protein (6.0-8.3) gm/dl Albumin (3.4-5.0) gm/dl Globulin (2.5-4.0) gm/dl Albumin/Globulin Ratio (0.9-2) Procalcitonin (0-0.5) ng/ml Urine Color Yellow Urine Appearance Clear (Clear) Urine pH 5.5 (4.5-7.5) Ur Specific [place] 1.012 (1.000-1.030) Urine Protein Negative (Negative) Urine Glucose (UA) Negative (Negative) Urine Ketones Negative (Negative) Urine Blood 2+ H (Negative) Urine Nitrite Negative (Negative) Urine Bilirubin Negative (Negative) Urine Urobilinogen Negative (Negative) Ur Leukocyte Esterase Negative (Negative) Urine WBC (Auto) 0-5 (0-5) /hpf Urine RBC (Auto) 0-2 (0-2) /hpf U Hyaline Cast (Auto) 0-2 (0-2) /lpf U Epithel Cells (Auto) 0-2 (0-2) /hpf Urine Bacteria (Auto) None Seen (None Seen) Urine Osmolality 407 L (500-800) mOsm/kg 03/09/25 Range/Units 09:08 WBC 6.96 (4.8-10.8) K/ul RBC 4.48 L (4.70-6.10) M/uL Hgb 12.9 L (14.0-18.0) g/dL Hct 37.5 L (42.0-52.0) % MCV 83.7 (80.0-100.0) fL MCH 28.8 (25.0-34.0) pg MCHC 34.4 (32.0-36.0) g/dL RDW Std Deviation 40.6 (36.4-46.3) fL RDW Coeff of Flora 13.2 (11.5-14.5) % Plt Count 114 L (130-400) K/uL MPV 10.2 (9.4-12.4) fL Sodium 127 L (136-145) mmol/L Potassium 4.8 (3.5-5.1) mmol/L Chloride 93 L (98-107) mmol/L Carbon Dioxide 28 (21-32) mmol/L Anion Gap 6 (3-11) BUN 30 H (6-23) mg/dl Creatinine 1.63 H (0.6-1.4) mg/dl Est Cr Clr Drug Dosing 48.2 ml/min eGFR 47.05 BUN/Creatinine Ratio 18.4 (10-20) Glucose 139 H (70-99(Fasting)) mg/dl POC Glucose (70-99) mg/dl Calcium 8.7 (8.6-10.3) mg/dl Phosphorus 2.6 (2.5-4.9) mg/dl Magnesium 1.8 (1.7-2.4) mg/dl Total Bilirubin 0.6 (0.2-1.0) mg/dl AST 41 H (13-39) U/L ALT 39 (7-52) U/L Alkaline Phosphatase 76 (34-104) U/L Total Protein 6.3 (6.0-8.3) gm/dl Albumin 3.4 (3.4-5.0) gm/dl Globulin 2.9 (2.5-4.0) gm/dl Albumin/Globulin Ratio 1.2 (0.9-2) Procalcitonin 5.55 H (0-0.5) ng/ml Urine Color Urine Appearance (Clear) Urine pH (4.5-7.5) Ur Specific [place] (1.000-1.030) Urine Protein (Negative) Urine Glucose (UA) (Negative) Urine Ketones (Negative) Urine Blood (Negative) Urine Nitrite (Negative) Urine Bilirubin (Negative) Urine Urobilinogen (Negative) Ur Leukocyte Esterase (Negative) Urine WBC (Auto) (0-5) /hpf Urine RBC (Auto) (0-2) /hpf U Hyaline Cast (Auto) (0-2) /lpf U Epithel Cells (Auto) (0-2) /hpf Urine Bacteria (Auto) (None Seen) Urine Osmolality (500-800) mOsm/kg Medications Administered Current Inpatient Medications Acetaminophen (Acetaminophen 325 Mg Tab) 650 mg PO Q4H PRN PRN Reason: pain/fever Stop: 04/07/25 18:46 Last Admin: 03/10/25 02:06 Dose: 650 mg Aspirin (Aspirin 81 Mg Chew) 81 mg PO QAM [facility] Stop: 04/08/25 08:59 Last Admin: 03/09/25 09:13 Dose: 81 mg Dextrose (Dextrose 50% 50 Ml Syringe) 25 - 50 ml IV UD PRN; Protocol PRN Reason: Hypoglycemia Protocol Stop: 04/07/25 17:25 Duloxetine HCl (Duloxetine Hcl 30 Mg Cap) 30 mg PO DAILY [facility] Stop: 04/08/25 08:59 Last Admin: 03/09/25 09:07 Dose: 30 mg Glucagon (Glucagon For Inj 1 Mg Vial) 1 mg SQ UD PRN; Protocol PRN Reason: Hypoglycemia Protocol Stop: 04/07/25 17:25 Glucose (Glucose 40% Gel 15 Gm Tube) 15 - 30 gm PO UD PRN; Protocol PRN Reason: Hypoglycemia Protocol Stop: 04/07/25 17:25 Glucose (Glucose 10 Tab/Tube) 4 - 8 tab PO UD PRN; Protocol PRN Reason: Hypoglycemia Protocol Stop: 04/07/25 17:25 Guaifenesin (Guaifenesin 600 Mg Tabcr) 600 mg PO Q12 [facility] Stop: 04/08/25 08:59 Last Admin: 03/09/25 22:04 Dose: 600 mg Heparin Sodium (Porcine) (Heparin Sod 5,000 Unit/0.5 Ml Vial) 5,000 units SQ Q12 [facility] Stop: 04/07/25 20:59 Last Admin: 03/09/25 22:04 Dose: 5,000 units Piperacillin Sod/Tazobactam Sod (Zosyn) 4.5 gm in 100 mls @ 25 mls/hr IV Q8H [facility]; Protocol Stop: 03/11/25 20:59 Last Admin: 03/10/25 06:00 Dose: 25 mls/hr Doxycycline Hyclate (Vibramycin) 100 mg in 100 mls @ 50 mls/hr IV Q12H [facility] Stop: 03/11/25 13:59 Last Infusion: 03/10/25 04:01 Dose: Infused Sodium Chloride (Nss) 1,000 mls @ 80 mls/hr IV .[id number] [facility] Stop: 03/12/25 14:59 Last Admin: 03/10/25 03:49 Dose: 80 mls/hr Insulin Aspart (Insulin Aspart Per Unit Charge) 0 units SC ACHS [facility] Stop: 04/07/25 20:59 Last Admin: 03/09/25 21:43 Dose: Not Given Miscellaneous (Carbohydrates For Hypoglycemia ) 15 - 30 gm PO UD PRN PRN Reason: Hypoglycemia Protocol Stop: 04/07/25 17:25 Ondansetron HCl (Ondansetron Inj 2 Mg/Ml 2 Ml Vial) 4 mg IV Q6H PRN PRN Reason: Nausea Stop: 04/07/25 18:46 Last Admin: 03/08/25 23:11 Dose: 4 mg Polyethylene Glycol (Polyethylene (Miralax) 17 Gm Pack) 17 gm PO DAILY PRN PRN Reason: Constipation Stop: 04/07/25 18:46 Rosuvastatin Calcium (Rosuvastatin Calcium 20 Mg Tab) 20 mg PO QAM [facility] Stop: 04/08/25 08:59 Last Admin: 03/09/25 09:06 Dose: 20 mg Urea (Urea (Urea-Na) 15 Gm Pack) 15 gm PO BID [facility] Stop: 04/07/25 20:59 Last Admin: 03/09/25 22:04 Dose: 15 gm
[2025-03-10 09:12] LABS: Alanine Aminotransferase 29.0 U/L (7-52); Albumin Globulin Ratio 1.2 (0.9-2); Albumin Level 3.4 gm/dl (3.4-5.0); Alkaline Phosphatase 75.0 U/L (34-104); Anion Gap 8.0 (3-11); Bilirubin,Total 0.5 mg/dl (0.2-1.0); Blood Urea Nitrogen 42.0 mg/dl (6-23); Calcium 8.4 mg/dl (8.6-10.3); Carbon Dioxide 28.0 mmol/L (21-32); Chloride 94.0 mmol/L (98-107); Creatinine Clr Calc Pharmacy 51.7 ml/min; Globulin 2.8 gm/dl (2.5-4.0); Glucose 106.0 mg/dl (70-99(Fasting)); Magnesium 1.9 mg/dl (1.7-2.4); Potassium 4.3 mmol/L (3.5-5.1); Sodium 130.0 mmol/L (136-145); Total Protein 6.2 gm/dl (6.0-8.3)
--- NOTE | 2025-03-10 11:23 | Nephrology Progress Note ---
Date of Service March 10, 2025 Assessment & Plan Admission and Anticipated Discharge Date Admission Date: March 08, 2025 Subjective Assessment & Plan (1) Acute hyponatremia: He appears euvolemic currently. Has very very high urine osm of 700 + with serum na only 127. now upto 130 Serum Osm slightly low at 275. 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 gIven higher than usual creat he likely had some volume depletion also. Was not eating solid food but drinking lot of liquids so also creates mismatch. bactrim as the cause for hyponatremia is not common. more often it does high k and higher creat. for now give another 1000 ml NS for salt/volume load and also one dose of iv lasix 40 iv around 6 PM Also give one dose of lasix 40 iv to breakdown the high urine osm. this has to come down for the serum Na to get higher. he is desperately asking for more liquid. will raise the limit to 1800 ml /day. No need of urea karina when having so much GI symptoms hold Bactrim, Lisinopril for now. Also dont give more NSAIDs. he did get dose of toradol. Check BMP again in AM. repeat urine osm around 5 PM --post lasix dose was much lower at 400 so good response with lasix (2) Acute kidney injury superimposed on chronic kidney disease: Creat on admission was 1.87 compred to 1.3 baseline. but is coming down now to 1.5 likely pre renal State. Continue more IVF at least till tomorrow. hold Bactrim, Lisinopril for now. Also dont give more NSAIDs. he did get a dose of toradol. Check BMP again in AM repeat UA and urine PCR. S--no new Issues. BP is still somewhat low. Making urine. Labs getting better. ROS--see HPI. 12 Systems otherwise negative Physical Exam Physical Exam: Gen: AAO 3 . NO distress. Normal speech HEENT: Moist mucous membranes. Neck: Supple,no JVD Lungs: No Respiratory distress. b/l clear CV: RRR, no edema. Abdomen: Soft non tender Skin: No rashes, Normal color per patient. Results & Data Vital Signs (Past 12 Hours) Vital Signs Temp Pulse Resp BP Pulse Ox O2 Del Method 03/10/25 07:48 36.8 C 74 18 98/58 L 95 Room Air 12/22/25 03:47 37.1 C 84 19 92/57 L 94 Room Air 03/10/25 01:07 37.4 C 79 20 111/68 94 Room Air
[2025-03-10] MEDS: FUROSEMIDE 40 MG/4 ML VIAL IV ONE ×2 (12:34→17:35)
[2025-03-10] MEDS: SODIUM CHLORIDE 0.9% 1,000 ML IV SCH (12:39)
[2025-03-11 06:40] LABS: Hematocrit (blood only) 35.6 % (42.0-52.0); Hemoglobin 12.4 g/dL (14.0-18.0); Mean Corpuscular Hemoglobin 29.1 pg (25.0-34.0); Mean Corpuscular Volume 83.6 fL (80.0-100.0); Platelet Count 160 K/uL (130-400); RDW Standard Deviation 39.8 fL (36.4-46.3); Red Blood Count 4.26 M/uL (4.70-6.10); White Blood Count 10.21 K/ul (4.8-10.8)
[2025-03-11 06:57] LABS: Alanine Aminotransferase 21.0 U/L (7-52); Albumin Globulin Ratio 1.1 (0.9-2); Albumin Level 3.2 gm/dl (3.4-5.0); Alkaline Phosphatase 65.0 U/L (34-104); Anion Gap 7.0 (3-11); Bilirubin,Total 0.5 mg/dl (0.2-1.0); Blood Urea Nitrogen 33.0 mg/dl (6-23); Calcium 8.2 mg/dl (8.6-10.3); Carbon Dioxide 28.0 mmol/L (21-32); Chloride 95.0 mmol/L (98-107); Creatinine Clr Calc Pharmacy 54.2 ml/min; Globulin 2.8 gm/dl (2.5-4.0); Glucose 99.0 mg/dl (70-99(Fasting)); Magnesium 1.8 mg/dl (1.7-2.4); Potassium 4.4 mmol/L (3.5-5.1); Sodium 130.0 mmol/L (136-145); Total Protein 6.0 gm/dl (6.0-8.3)
--- NOTE | 2025-03-11 11:01 | Nephrology Progress Note ---
Date of Service March 11, 2025 Assessment & Plan Admission and Anticipated Discharge Date Admission Date: March 08, 2025 Subjective Assessment & Plan (1) Acute hyponatremia: He appears euvolemic currently. Has very very high urine osm of 700 + with serum na only 127. now upto 130 Serum Osm slightly low at 275. 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 given higher than usual creat he likely had some volume depletion also. Was not eating solid food but drinking lot of liquids so also creates mismatch. bactrim as the cause for hyponatremia is not common. more often it does high k and higher creat. na stable at 130. No IVF or lasix today. he is desperately asking for more liquid. will raise the limit to 1800 ml /day. restart urea-na 15 gm bid from now. hold Bactrim, Lisinopril for now. Also dont give more NSAIDs. Daily labs is enough now. (2) Acute kidney injury superimposed on chronic kidney disease: Creat on admission was 1.87 compared to 1.3 baseline. but is coming down now to 1.5 likely pre renal State. hold Bactrim, Lisinopril for now. Also dont give more NSAIDs. he did get a dose of toradol. Check BMP again in AM repeat UA and urine PCR. S--no new Issues. BP is still somewhat low. Making urine. Labs getting better. ROS--see HPI. 12 Systems otherwise negative Physical Exam Physical Exam: Gen: AAO 3 . NO distress. Normal speech HEENT: Moist mucous membranes. Neck: Supple,no JVD Lungs: No Respiratory distress. b/l clear CV: RRR, no edema. Abdomen: Soft non tender Skin: No rashes, Normal color per patient. Results & Data Vital Signs (Past 12 Hours) Vital Signs Temp Pulse Pulse Resp BP Pulse Ox O2 Del Method 03/11/25 08:41 36.7 C 76 19 124/76 97 Room Air 03/11/25 05:35 76 03/11/25 02:45 37.1 C 76 18 125/76 97 Room Air
[2025-03-11] MEDS: UREA (UREA-NA) 15 GM PACK PO SCH (11:18)
--- NOTE | 2025-03-11 12:40 | Hospitalist Progress Note ---
Date of Service March 11, 2025 Assessment & Plan (1) Acute kidney injury superimposed on CKD: (2) Diabetes mellitus, type II: (3) Hypertension: (4) CAD (coronary artery disease): (5) Steatosis of liver: Plan 64 yo male with pmhx DM Type 2, HLD, HTN, CAD s/p CABG, CKD stage 3a, cervical spinal stenosis presents for confusion and weakness for past 2 weeks 2/2 suspected viral illness causing hyponatremia. Pt seen in follow up of hyponatremia Per report hx of viral illness, was started on Bactrim at urgent care on Monday, he has been feeling unwell and with on and off fevers at home since late Monday Overnight after admission, spiked fever at 38.8C #Hypovolemic Hypoosmolar Hyponatremia #FABIOLA on CKD Stage 3a -urine studies obtained and repeated after discussing w/ nephrology -appeared hypovolemic on initial exam on admission, sodium did not budge with fluids but creatinine improved -could be prerenal 2/2 viral illness - UA negative x2 -urine and serum osmoles, urine sodium/creatinine -hold bactrim, lisinopril -was started on urea and FR - Nephrology consulted - gave IVF, lasix, cont. FR and urea - current Na improved since admission Na 130, Cr 1.45, however essentially unchanged from yesterday Fever - unclear etiology - pt been on Bactrim for several days - reports having rhinorrhea, diarrhea - Blood cultures pending - WBC not elevated - procalcitonin elevated - UA negative - biofire resp. negative - Tick born panel pending, so far negative - Stool pcr, c.diff - uncollected - Pt has a pilonidal cyst, buttocks erythematous and pt repots discomfort sitting on it, also some poss. yellow drainage. Consulted with gen. surg. - no concerns at this time. - started zosyn, doxy, cont. for now #DM Type 2 -ssi -hold metformin #HLD -continue statin #HTN -hold lisinopril #CAD s/p CABG -continue aspirin, statin #Cervical Spinal Stenosis -continue duloxetine #R/o MASH -patient with elevated AST and low platelets -f/u outpatient Admission and Anticipated Discharge Date Admission Date: March 08, 2025 Subjective Pt seen in follow up of hyponatremia Per report hx of viral illness, rhinorrhea, Says last Monday he was out in restaurant, then in the evening had diarrhea, been feeling unwell with fevers on and off -> was started on Bactrim on Monday at urgent care Overnight after admission, spiked fever at 38.8C Has hx of pilonidal cyst, says it's uncomfortable to sit on, but not aware of any recent drainage or significant pain. Gen. surg. consulted - no concerns at this time. Currently sitting upin chair in [facility], feeling little improved since coming to hospital. now has nausea and vomited (possibly from urea) Denies chest pain, shortness of breath, or cough. Had mild rhinorrhea and RAHMAN. Denies abd. pain. No BM here, stool studies ordered. Procalcitonin ordered this AM - elevated Blood cultx - so far negative Nephrology following for hyponatremia Review of Systems Review of Systems: All systems reviewed & are unremarkable except as noted in Subjective Physical Exam Physical Exam: Gen: A&O 3 NAD HEENT: NCAT, EOMI, not icteric. External ears normal. Neck: Supple Lungs: No Respiratory distress. CV: RRR, no edema. Abdomen: soft, obese, nontender MSK: No LE edema, moves extremities Skin: warm, dry Neuro: Awake, alert, answers appropriately, speech fluent, moves extremities Psych: Appropriate for situation. Results & Data Results & Data Vital Signs (Past 12 Hours) Vital Signs Temp Pulse Pulse Resp BP BP Pulse Ox 03/11/25 12:23 36.9 C 64 17 119/75 96 03/11/25 08:41 36.7 C 76 19 124/76 97 03/11/25 05:35 76 03/11/25 02:45 37.1 C 76 18 125/76 97 O2 Del Method 03/11/25 12:23 Room Air 03/11/25 08:41 Room Air 03/11/25 05:35 03/11/25 02:45 Room Air Laboratory Results 03/11/25 03/11/25 03/11/25 Range/Units 11:50 08:14 05:33 WBC 10.21 (4.8-10.8) K/ul RBC 4.26 L (4.70-6.10) M/uL Hgb 12.4 L (14.0-18.0) g/dL Hct 35.6 L (42.0-52.0) % MCV 83.6 (80.0-100.0) fL MCH 29.1 (25.0-34.0) pg MCHC 34.8 (32.0-36.0) g/dL RDW Std Deviation 39.8 (36.4-46.3) fL RDW Coeff of Flora 13.1 (11.5-14.5) % Plt Count 160 (130-400) K/uL MPV 9.7 (9.4-12.4) fL Sodium 130 L (136-145) mmol/L Potassium 4.4 (3.5-5.1) mmol/L Chloride 95 L (98-107) mmol/L Carbon Dioxide 28 (21-32) mmol/L Anion Gap 7 (3-11) BUN 33 H (6-23) mg/dl Creatinine 1.45 H (0.6-1.4) mg/dl Est Cr Clr Drug Dosing 54.2 ml/min eGFR 54.15 BUN/Creatinine Ratio 22.8 H (10-20) Glucose 99 (70-99(Fasting)) mg/dl POC Glucose 98 112 H (70-99) mg/dl Calcium 8.2 L (8.6-10.3) mg/dl Phosphorus 2.7 (2.5-4.9) mg/dl Magnesium 1.8 (1.7-2.4) mg/dl Total Bilirubin 0.5 (0.2-1.0) mg/dl AST 21 (13-39) U/L ALT 21 (7-52) U/L Alkaline Phosphatase 65 (34-104) U/L Total Protein 6.0 (6.0-8.3) gm/dl Albumin 3.2 L (3.4-5.0) gm/dl Globulin 2.8 (2.5-4.0) gm/dl Albumin/Globulin Ratio 1.1 (0.9-2) 03/10/25 03/10/25 Range/Units 20:10 17:05 WBC (4.8-10.8) K/ul RBC (4.70-6.10) M/uL Hgb (14.0-18.0) g/dL Hct (42.0-52.0) % MCV (80.0-100.0) fL MCH (25.0-34.0) pg MCHC (32.0-36.0) g/dL RDW Std Deviation (36.4-46.3) fL RDW Coeff of Flora (11.5-14.5) % Plt Count (130-400) K/uL MPV (9.4-12.4) fL Sodium (136-145) mmol/L Potassium (3.5-5.1) mmol/L Chloride (98-107) mmol/L Carbon Dioxide (21-32) mmol/L Anion Gap (3-11) BUN (6-23) mg/dl Creatinine (0.6-1.4) mg/dl Est Cr Clr Drug Dosing ml/min eGFR BUN/Creatinine Ratio (10-20) Glucose (70-99(Fasting)) mg/dl POC Glucose 172 H 103 H (70-99) mg/dl Calcium (8.6-10.3) mg/dl Phosphorus (2.5-4.9) mg/dl Magnesium (1.7-2.4) mg/dl Total Bilirubin (0.2-1.0) mg/dl AST (13-39) U/L ALT (7-52) U/L Alkaline Phosphatase (34-104) U/L Total Protein (6.0-8.3) gm/dl Albumin (3.4-5.0) gm/dl Globulin (2.5-4.0) gm/dl Albumin/Globulin Ratio (0.9-2) Medications Administered Current Inpatient Medications Acetaminophen (Acetaminophen 325 Mg Tab) 650 mg PO Q4H PRN PRN Reason: pain/fever Stop: 04/07/25 18:46 Last Admin: 03/11/25 00:55 Dose: 650 mg Aspirin (Aspirin 81 Mg Chew) 81 mg PO QAM [facility] Stop: 04/08/25 08:59 Last Admin: 03/11/25 09:06 Dose: 81 mg Dextrose (Dextrose 50% 50 Ml Syringe) 25 - 50 ml IV UD PRN; Protocol PRN Reason: Hypoglycemia Protocol Stop: 04/07/25 17:25 Duloxetine HCl (Duloxetine Hcl 30 Mg Cap) 30 mg PO DAILY [facility] Stop: 04/08/25 08:59 Last Admin: 03/11/25 09:06 Dose: 30 mg Glucagon (Glucagon For Inj 1 Mg Vial) 1 mg SQ UD PRN; Protocol PRN Reason: Hypoglycemia Protocol Stop: 04/07/25 17:25 Glucose (Glucose 40% Gel 15 Gm Tube) 15 - 30 gm PO UD PRN; Protocol PRN Reason: Hypoglycemia Protocol Stop: 04/07/25 17:25 Glucose (Glucose 10 Tab/Tube) 4 - 8 tab PO UD PRN; Protocol PRN Reason: Hypoglycemia Protocol Stop: 04/07/25 17:25 Guaifenesin (Guaifenesin 600 Mg Tabcr) 600 mg PO Q12 [facility] Stop: 04/08/25 08:59 Last Admin: 03/11/25 09:06 Dose: 600 mg Heparin Sodium (Porcine) (Heparin Sod 5,000 Unit/0.5 Ml Vial) 5,000 units SQ Q12 [facility] Stop: 04/07/25 20:59 Last Admin: 03/11/25 09:06 Dose: 5,000 units Piperacillin Sod/Tazobactam Sod (Zosyn) 4.5 gm in 100 mls @ 25 mls/hr IV Q8H [facility]; Protocol Stop: 03/11/25 20:59 Last Infusion: 03/11/25 08:56 Dose: Infused Doxycycline Hyclate (Vibramycin) 100 mg in 100 mls @ 50 mls/hr IV Q12H [facility] Stop: 03/11/25 13:59 Last Infusion: 03/11/25 03:05 Dose: Infused Insulin Aspart (Insulin Aspart Per Unit Charge) 0 units SC ACHS [facility] Stop: 04/07/25 20:59 Last Admin: 03/11/25 09:28 Dose: 7 units Miscellaneous (Carbohydrates For Hypoglycemia ) 15 - 30 gm PO UD PRN PRN Reason: Hypoglycemia Protocol Stop: 04/07/25 17:25 Ondansetron HCl (Ondansetron Inj 2 Mg/Ml 2 Ml Vial) 4 mg IV Q6H PRN PRN Reason: Nausea Stop: 04/07/25 18:46 Last Admin: 03/08/25 23:11 Dose: 4 mg Polyethylene Glycol (Polyethylene (Miralax) 17 Gm Pack) 17 gm PO DAILY PRN PRN Reason: Constipation Stop: 04/07/25 18:46 Rosuvastatin Calcium (Rosuvastatin Calcium 20 Mg Tab) 20 mg PO QAM [facility] Stop: 04/08/25 08:59 Last Admin: 03/11/25 09:06 Dose: 20 mg Urea (Urea (Urea-Na) 15 Gm Pack) 15 gm PO BID [facility] Stop: 04/10/25 10:59 Last Admin: 03/11/25 11:18 Dose: 15 gm
[2025-03-11 19:29] VITALS: RESP 18
[2025-03-12 06:52] LABS: Hematocrit (blood only) 36.3 % (42.0-52.0); Hemoglobin 12.4 g/dL (14.0-18.0); Mean Corpuscular Hemoglobin 28.6 pg (25.0-34.0); Mean Corpuscular Volume 83.8 fL (80.0-100.0); Platelet Count 201 K/uL (130-400); RDW Standard Deviation 40.1 fL (36.4-46.3); Red Blood Count 4.33 M/uL (4.70-6.10); White Blood Count 7.42 K/ul (4.8-10.8)
[2025-03-12 07:55] LABS: Anion Gap 5.0 (3-11); Blood Urea Nitrogen 33.0 mg/dl (6-23); Calcium 8.7 mg/dl (8.6-10.3); Carbon Dioxide 31.0 mmol/L (21-32); Chloride 96.0 mmol/L (98-107); Creatinine Clr Calc Pharmacy 63.3 ml/min; Glucose 90.0 mg/dl (70-99(Fasting)); Magnesium 1.9 mg/dl (1.7-2.4); Potassium 4.7 mmol/L (3.5-5.1); Sodium 132.0 mmol/L (136-145)
--- NOTE | 2025-03-12 10:10 | Nephrology Progress Note ---
Date of Service March 12, 2025 Assessment & Plan Admission and Anticipated Discharge Date Admission Date: March 08, 2025 Subjective Assessment & Plan (1) Acute hyponatremia: He appears euvolemic currently. Has very very high urine osm of 700 + with serum na only 127. now upto 130 Serum Osm slightly low at 275. 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 given higher than usual creat he likely had some volume depletion also. Was not eating solid food but drinking lot of liquids so also creates mismatch. bactrim as the cause for hyponatremia is not common. more often it does high k and higher creat. na stable at 132 . No IVF or lasix today. Continue urea-na 15 gm bid for now while inpt. likely wont need it at discharge. hold Bactrim, Lisinopril for now. Also dont give more NSAIDs. Daily labs is enough now. (2) Acute kidney injury superimposed on chronic kidney disease: Creat on admission was 1.87 compared to 1.3 baseline. but is coming down now to 1.24 FABIOLA likely pre renal State. hold Bactrim, Lisinopril for now. BPis low normal anyway for now Also dont give more NSAIDs. he did get a dose of toradol. Check BMP again in AM repeat UA and urine PCR. S--no new Issues. BP is still somewhat low. Making urine. Labs getting better. ROS--see HPI. 12 Systems otherwise negative Physical Exam Physical Exam: Gen: AAO 3 . NO distress. Normal speech HEENT: Moist mucous membranes. Neck: Supple,no JVD Lungs: No Respiratory distress. b/l clear CV: RRR, no edema. Abdomen: Soft non tender Skin: No rashes, Normal color per patient. Results & Data Vital Signs (Past 12 Hours) Vital Signs Temp Pulse Pulse Resp BP Pulse Ox O2 Del Method 03/12/25 08:49 75 18 104/71 97 Room Air 03/12/25 07:19 66 03/12/25 02:49 36.5 C 65 18 106/67 97 Room Air 03/11/25 22:22 36.5 C 71 18 99/63 L 96 Room Air
--- NOTE | 2025-03-12 12:23 | Hospitalist Progress Note ---
Date of Service March 12, 2025 Assessment & Plan (1) Acute kidney injury superimposed on CKD: (2) Diabetes mellitus, type II: (3) Hypertension: (4) CAD (coronary artery disease): (5) Steatosis of liver: Plan 64 yo male with pmhx DM Type 2, HLD, HTN, CAD s/p CABG, CKD stage 3a, cervical spinal stenosis presents for confusion and weakness for past 2 weeks 2/2 suspected viral illness causing hyponatremia. Pt seen in follow up of hyponatremia Per report hx of viral illness, was started on Bactrim at urgent care on Monday, he has been feeling unwell and with on and off fevers at home since late Monday Overnight after admission, spiked fever at 38.8C Hypovolemic Hypoosmolar Hyponatremia FABIOLA on CKD Stage 3a Hyponatremia multifactorial, some degree of SIADH, volume depletion due to GI losses Hyponatremia improved to 132 Continue urea Appreciate nephrology input Bactrim discontinued Plan to continue to hold lisinopril for now Avoid NSAIDs Creatinine levels improved Needs follow-up with nephrology on discharge Fever likely viral - unclear etiology - pt been on Bactrim for several days - reports having rhinorrhea, diarrhea - Blood cultures --Negative to date - WBC not elevated - procalcitonin levels improved - UA negative - biofire resp. negative - Tick born panel pending, so far negative - Stool pcr, c.diff - uncollected as no recurrence of diarrhea - Pt has a pilonidal cyst, buttocks erythematous and pt repots discomfort sitting on it, also some poss. yellow drainage. Consulted with gen. surg. - no concerns at this time. Empirically received Zosyn, doxycycline--discontinued Monitor off antibiotics DM Type 2 -ssi -hold metformin while hospitalized HLD -continue statin HTN -hold lisinopril Monitor blood pressure CAD s/p CABG -continue aspirin, statin Cervical Spinal Stenosis -continue duloxetine Thrombocytopenia Resolved DVT Px: Heparin SQ CODE STATUS Full code Disposition Home Admission and Anticipated Discharge Date Admission Date: March 08, 2025 Subjective Patient is seen and examined at bedside States feeling a lot better today Renal function improving Dizziness, balance issues resolved Weakness much improved Appetite slowly improving Offers no other complaints Discussed with nephrology today Review of Systems Review of Systems: All systems reviewed & are unremarkable except as noted in Subjective Physical Exam Physical Exam: Physical Exam: Vitals signs as noted above General Appearance:Obese, no apparent distress Head: normocephalic, Atraumatic Eyes: normal inspection, EOMI Neck: supple, Trachea midline Respiratory/Chest: Normal breath sounds, CTA, No accessory muscle use Cardiovascular: S1, S2, No murmur Abdomen/GI:Soft, Non tender, Bowel sounds present Extremities/Musculoskeletal:normal inspection, no edema Neurologic/Psych:AAOX3, grossly no focal neurological deficits Skin: normal color, warm Results & Data Results & Data Vital Signs (Past 12 Hours) Vital Signs Temp Pulse Pulse Resp BP Pulse Ox O2 Del Method 03/12/25 08:49 75 18 104/71 97 Room Air 03/12/25 07:19 66 03/12/25 02:49 36.5 C 65 18 106/67 97 Room Air Laboratory Results Short CBC 03/12/25 Range/Units 06:25 WBC 7.42 (4.8-10.8) K/ul Hgb 12.4 L (14.0-18.0) g/dL Hct 36.3 L (42.0-52.0) % Plt Count 201 (130-400) K/uL BMP 03/12/25 06:25 Sodium 132 L Potassium 4.7 Chloride 96 L Carbon Dioxide 31 BUN 33 H Creatinine 1.24 Glucose 90 Calcium 8.7
[2025-03-12 12:30] VITALS: PULSE 68; TEMP 97.9; O2SAT 96
[2025-03-12 12:52] VITALS: BP 105/69
[2025-03-12] MEDS: INFLUENZA VACC TS2025-26(6m+)/PF (IIV3) 0.5mL Syr IM ONE (14:29)
--- NOTE | 2025-03-12 17:42 | Discharge Summary ---
Date of Service March 12, 2025 Admission HPI Per Admitting Provider 64 yo male with pmhx DM Type 2, HLD, HTN, CAD s/p CABG, CKD stage 3a, cervical spinal stenosis presents for confusion and weakness for past 2 weeks. Has had no medical admissions at [facility]. In the ED, given fluids with worsening of Na, given toradol, admitted to medicine for further workup. Patient seen and examined at bedside. Patient states for past 2 weeks has had headache, some nasal drainage, nausea, skin sensitivitiy. He states his skin gets sensitive when he gets sick. He states he likely has had sick contacts. Denies SOB, chest pain, diarrhea, other associated symptoms. Does endorse some mild confusion and sweating. No tobacco use, no drug use, no alcohol use, full code. Admission Exam Per Admitting Provider Gen: A&O 3 NAD HEENT: NCAT, EOMI, not icteric. External ears normal. No rhinorrhea. Dry mucous membranes. Flushed face Neck: Supple, full range of motion, no observable masses, No meningeal sign. Lungs: No Respiratory distress. CV: RRR, no edema. Abdomen: trace epigastric tenderness MSK: No joint swelling, no redness. Skin: No rashes, petechiae, lesions. Normal color per patient. Neuro: Normal Gait, Grossly intact. Psych: Appropriate for situation. Principal Diagnosis Hyponatremia Acute kidney injury on CKD stage III Suspected viral infection Discharge Data Allergies Allergy/AdvReac Type Severity Reaction Status Date / Time bee venom protein (honey bee) Allergy Severe Anaphylaxis- Verified 03/08/25 15:33 yellow jackets shellfish derived Allergy Severe Anaphylaxis Verified 03/08/25 15:33 erythromycin base AdvReac Mild nausea and Verified 03/08/25 15:33 vomiting Consultations 03/08/25 16:01 ED Decision to Admit Stat 03/09/25 07:52 Consult Nephrology Routine 03/09/25 13:21 Consult General Surgery Routine Procedures Performed Laboratory Results WBC 7.42 K/ul (4.8-10.8) 03/12/25 06:25 RBC 4.33 M/uL (4.70-6.10) L 03/12/25 06:25 Hgb 12.4 g/dL (14.0-18.0) L 03/12/25 06:25 Hct 36.3 % (42.0-52.0) L 03/12/25 06: MCV 83.8 fL (80.0-100.0) 03/12/25 06: MCH 28.6 pg (25.0-34.0) 03/12/25 06: MCHC 34.2 g/dL (32.0-36.0) 03/12/25: RDW Std Deviation 40.1 fL (36.4-46.3) 03/12/25: RDW Coeff of Flora 13.2 % (11.5-14.5) 03/12/25: Plt Count 201 K/uL (130-400) 03/12/25: MPV 9.4 fL (9.4-12.4) 03/12/25 06: Immature Gran % (Auto) 0.3 % 03/08/25 12:58 Neut % (Auto) 81.3 % 03/08/25 12:58 Lymph % (Auto) 11.8 % 03/08/25 12:58 [place] % (Auto) 5.9 % 03/08/25 12:58 Eos % (Auto) 0.2 % 03/08/25 12:58 Baso % (Auto) 0.5 % 03/08/25 12:58 Neut # (Auto) 4.95 K/uL (1.40-6.50) 03/08/25 12:58 Lymph # (Auto) 0.72 K/uL (1.20-3.40) L 03/08/25 12:58 [place] # (Auto) 0.36 K/uL (0.11-0.59) 03/08/25 12:58 Eos # (Auto) 0.01 K/uL (0.00-0.50) 03/08/25 12:58 Baso # (Auto) 0.03 K/uL (0.00-0.20) 03/08/25 12:58 Immature Gran # (Auto) 0.02 K/uL (0.01-0.20) 03/08/25 12:58 Toxic Vacuolation 1+ 03/08/25 12:58 Polychromasia 1+ 03/08/25 12:58 Echinocytes 1+ 03/08/25 12:58 Sodium 132 mmol/L (136-145) L 03/12/25 06:25 Potassium 4.7 mmol/L (3.5-5.1) 03/12/25 06:25 Chloride 96 mmol/L (98-107) L 03/12/25 06:25 Carbon Dioxide 31 mmol/L (21-32) 03/12/25 06:25 Anion Gap 5 (3-11) 03/12/25 06:25 BUN 33 mg/dl (6-23) H 03/12/25 06:25 Creatinine 1.24 mg/dl (0.6-1.4) 03/12/25 06:25 Est Cr Clr Drug Dosing 63.3 ml/min 03/12/25 06:25 eGFR 65.33 03/12/25 06:25 BUN/Creatinine Ratio 26.6 (10-20) H 03/12/25 06:25 Glucose 90 mg/dl (70-99(Fasting)) 03/12/25 06:25 POC Glucose 101 mg/dl (70-99) H 03/12/25 11:56 Osmolality 275 mOsm/kg (280-300) L 03/08/25 13:23 Calcium 8.7 mg/dl (8.6-10.3) 03/12/25 06:25 Phosphorus 3.1 mg/dl (2.5-4.9) 03/12/25 06:25 Magnesium 1.9 mg/dl (1.7-2.4) 03/12/25 06:25 Total Bilirubin 0.5 mg/dl (0.2-1.0) 03/11/25 05:33 AST 21 U/L (13-39) 03/11/25 05:33 ALT 21 U/L (7-52) 03/11/25 05:33 Alkaline Phosphatase 65 U/L (34-104) 03/11/25 05:33 Total Protein 6.0 gm/dl (6.0-8.3) 03/11/25 05:33 Albumin 3.2 gm/dl (3.4-5.0) L 03/11/25 05:33 Globulin 2.8 gm/dl (2.5-4.0) 03/11/25 05:33 Albumin/Globulin Ratio 1.1 (0.9-2) 03/11/25 05:33 Procalcitonin 1.29 ng/ml (0-0.5) H 03/12/25 06:25 Urine Color Yellow 03/09/25 19:32 Urine Appearance Clear (Clear) 03/09/25 19:32 Urine pH 5.5 (4.5-7.5) 03/09/25 19:32 Ur Specific [place] 1.012 (1.000-1.030) 03/09/25 19:32 Urine Protein Negative (Negative) 03/09/25 19:32 Urine Glucose (UA) Negative (Negative) 03/09/25 19: Urine Ketones Negative (Negative) 03/09/25 19: Urine Blood 2+ (Negative) H 03/09/25 19: Urine Nitrite Negative (Negative) 03/09/25: Urine Bilirubin Negative (Negative) 03/09/25 19: Urine Urobilinogen Negative (Negative) 03/09/25 19: Ur Leukocyte Esterase Negative (Negative) 03/09/25 19:32 Urine WBC (Auto) 0-5 /hpf (0-5) 03/09/25 19:32 Urine RBC (Auto) 0-2 /hpf (0-2) 03/09/25 19:32 U Hyaline Cast (Auto) 0-2 /lpf (0-2) 03/09/25 19:32 U Epithel Cells (Auto) 0-2 /hpf (0-2) 03/09/25 19:32 Urine Bacteria (Auto) None Seen (None Seen) 03/09/25 19:32 Granular Casts Present /lpf (None Prsent) A 03/08/25 17:40 Urine Osmolality 407 mOsm/kg (500-800) L 03/09/25 19:32 Ur Random Creatinine 225.4 mg/dl 03/08/25 17:40 Ur Random Sodium 39 mmol/L 03/08/25 17:40 Urine Comment 03/08/25 17:40 Adenovirus (PCR) Not Detected (NotDetected) 03/08/25 16:21 Anaplasma Smear Cancelled 03/08/25 12:58 Anaplasma Smear See Comment 03/08/25 12:58 Babesia Smear Cancelled 03/08/25 12:58 Babesia Smear See Comment 03/08/25 12:58 B. pertussis DNA (PCR) Not Detected (NotDetected) 03/08/25 16:21 B.parapertussis DNA PCR Not Detected (NotDetected) 03/08/25 16:21 Lyme Disease Screen Negative (Negative) 03/08/25 12:58 C. pneumoniae DNA (PCR) Not Detected (NotDetected) 03/08/25 16:21 Coronavirus OC43 (PCR) Not Detected (NotDetected) 03/08/25 16:21 Coronavirus HKU1 (PCR) Not Detected (NotDetected) 03/08/25 16:21 Coronavirus 229E (PCR) Not Detected (NotDetected) 03/08/25 16:21 SARS-CoV-2 (PCR) Not Detected (NotDetected) 03/08/25 16:21 Coronavirus NL63 (PCR) Not Detected (NotDetected) 03/08/25 16:21 Human Metapneumovir PCR Not Detected (NotDetected) 03/08/25 16:21 Influenza Type A (PCR) Not Detected (NotDetected) 03/08/25 16:21 Influenza Type B (PCR) Not Detected (NotDetected) 03/08/25 16:21 M. pneumoniae (PCR) Not Detected (NotDetected) 03/08/25 16:21 Parainfluenza 1 (PCR) Not Detected (NotDetected) 03/08/25 16:21 Parainfluenza 2 (PCR) Not Detected (NotDetected) 03/08/25 16:21 Parainfluenza 3 (PCR) Not Detected (NotDetected) 03/08/25 16:21 Parainfluenza 4 (PCR) Not Detected (NotDetected) 03/08/25 16:21 RSV (RT-PCR) Negative (Neg) 03/08/25 13:39 RSV (PCR) Not Detected (NotDetected) 03/08/25 16:21 Entero/Rhino (PCR) Not Detected (NotDetected) 03/08/25 16:21 Impressions Chest X-Ray 03/08/25 13:12 Technique: A frontal view of the chest was obtained Findings: There is suspected mild pulmonary edema. The heart size is within normal limits. No pleural effusion or pneumothorax is seen. There is a dense nodule in the right midlung, likely a benign calcified granuloma No fracture is noted. Sternal wires and plates are present. There is a cervical fusion Impression: Suspected mild pulmonary edema ACT 112: Positive. There are findings on this exam that require communication between the performing entity and the patient following Patient Test Result Information Act ([place] ACT 112) guidelines. Electronically signed by Ryan Hernandez 03-08-2025 2:03 PM Abdomen/Pelvis CT 03/08/25 17:09 Exam: The abdomen pelvis without contrast. Exam reason: Nausea, vomiting. Comparison: 01/08/2024. Technique: Multiple transaxial images of the abdomen pelvis were obtained without contrast. Findings: The visualized portions of the lung bases are unremarkable. No focal abnormalities noted within the liver or spleen. Multiple punctate calcifications are noted throughout the spleen. Adrenals and pancreas are within normal limits. The gallbladder is unremarkable. There is no evidence of obstructing stone or hydronephrosis. The bowel loops are of normal caliber. The bladder is unremarkable. There is no free air, free fluid or inflammatory change. The appendix is normal in course and caliber. The patient is status post posterior fusion of L2-L5 along with posterior decompression. No acute bony adenopathy is identified. Impression: 1. Unremarkable abdomen and pelvis. 2. Multiple punctate calcifications are again seen within the spleen. This is likely related to prior granulomatous infection. Electronically signed by Fabricio Noriega 03-08-2025 7:42 PM Ordered Studies 03/08/25 17:09 CT abd pelvis wo con Urgent Hospital Course (1) Acute kidney injury superimposed on CKD: (2) Diabetes mellitus, type II: (3) Hypertension: (4) CAD (coronary artery disease): (5) Steatosis of liver: Plan 64 yo male with pmhx DM Type 2, HLD, HTN, CAD s/p CABG, CKD stage 3a, cervical spinal stenosis presents for confusion and weakness for past 2 weeks 2/2 suspected viral illness causing hyponatremia. Pt seen in follow up of hyponatremia Per report hx of viral illness, was started on Bactrim at urgent care on Monday, he has been feeling unwell and with on and off fevers at home since late Monday Overnight after admission, spiked fever at 38.8C Hypovolemic Hypoosmolar Hyponatremia FABIOLA on CKD Stage 3a Hyponatremia multifactorial, some degree of SIADH, volume depletion due to GI losses Hyponatremia improved to 132 Continue urea Appreciate nephrology input Bactrim discontinued Plan to continue to hold lisinopril for now Avoid NSAIDs Creatinine levels improved Needs follow-up with nephrology on discharge Fever likely viral - unclear etiology - pt been on Bactrim for several days - reports having rhinorrhea, diarrhea - Blood cultures --Negative to date - WBC not elevated - procalcitonin levels improved - UA negative - biofire resp. negative - Tick born panel pending, so far negative - Stool pcr, c.diff - uncollected as no recurrence of diarrhea - Pt has a pilonidal cyst, buttocks erythematous and pt repots discomfort sitting on it, also some poss. yellow drainage. Consulted with gen. surg. - no concerns at this time. Empirically received Zosyn, doxycycline--discontinued Monitor off antibiotics DM Type 2 -ssi -hold metformin while hospitalized HLD -continue statin HTN -hold lisinopril Monitor blood pressure CAD s/p CABG -continue aspirin, statin Cervical Spinal Stenosis -continue duloxetine Thrombocytopenia Resolved DVT Px: Heparin SQ CODE STATUS Full code Disposition Home Total Time Total Time Spent Total Time Spent (In Minutes): 52 minutes Discharge Plan Discharge Items Patient Disposition: Home - Self-Care Reason For Visit: HYPONATREMIA Discharge Diagnosis: Hyponatremia Acute kidney injury on CKD stage III Suspected viral infection Condition on Discharge: Fair Activity: Per Instructions section Exercise/Sports: Wait until after follow-up appointment Non-emergency contact: Primary Care Provider and Hydraulic Press In Operator Call non-emergency contact if: you have any medication questions, your symptoms worsen, your pain is concerning for you and you have a fever Follow-up/Referrals: Carroll Mary MD [Surgeon] - (The office will call you with a follow up appointment.) Neil Reyes PA-C [Primary Care Provider] - ( Date & Time 03/27/2025 2:00 PM Provider: Neil Reyes PA-C [facility] [place] ) Diet: Carb Consistent or DM2 Fluids: 1800ml (7 cups) Addtl Attending Provider Instructions: -- Follow-up with your primary care physician Wilfred Reyes PA-C on 03/17/2025 9:00 AM -- Follow-up with your it technical architect Dr. Estrella in 1 week -- Get blood work (basic metabolic panel) in 1 week and follow-up with your it technical architect for further recommendations. --Hold taking lisinopril until further recommendations from a it technical architect on follow-up visit. -- Your blood test for tickborne disease and blood cultures are pending at the time of discharge. Follow-up with your physician for results. Seek immediate medical attention if your symptoms reoccur or worsen Please review medication list provided on discharge for any medication changes as instructed. Please call if you have any questions or problems. You can reach a [facility] hospitalist on duty at [facility] 24 hours a day by calling [phone] Pending Studies at Discharge: Yes Studies:: Blood cultures Stand-Alone Forms: My [facility] [employer], Smoking Cessation Medications and DC Order Prescriptions: New Ure-Na 15 gram Powder In Packet 15 g PO BID 7 Days Qty: 14 0RF ondansetron HCl 4 mg tablet 4 mg PO Q6H PRN (Reason: nausea and vomiting) Qty: 20 0RF Continued metformin 1,000 mg tablet 500 mg PO BID rosuvastatin 20 mg tablet 20 mg PO QAM cyanocobalamin (vitamin B-12) [Vitamin B-12] 1,000 mcg Tablet Extended Release 1,000 mcg PO QAM cholecalciferol (vitamin D3) [Vitamin D3] 25 mcg (1,000 unit) Tablet,Chewable 25 mcg PO QAM Ozempic 1 mg/dose (4 mg/3 mL) Pen Injector 1 mg SUBCUT Q7D Patient Comments: fridays aspirin 81 mg Capsule 81 mg PO QAM sildenafil 100 mg tablet 100 mg PO DAILY PRN (Reason: Other) duloxetine 30 mg capsule,delayed release(DR/EC) 30 mg PO DAILY Patient Comments: 03/08-per pt only a temp medication Held lisinopril 5 mg tablet 5 mg PO QAM Hold Instructions: Hold taking until further recommendations from a it technical architect Discontinued sulfamethoxazole-trimethoprim 800-160 mg tablet 1 tab PO BID Discharge Orders: Discharge Order (Routine); Ordered 03/12/25 Ordered By: Skyler Mendiola Admission Data Admit Date/Time: 03/08/25 16:03 Attending Provider: Skyler Mendiola Admit Provider: Ajay Horne Primary Care Provider: Neil Reyes Other Providers: Ajay Horne; Carroll Mary; Jose Miguel,Ramón A. Other Interventions: Discharge Summary Assessment (RN) Last Done: 03/12/25 12:52
== END 2025-03-12 15:15 | disposition home or self-care (01) | DRG 644 ==
LOC: ED 12:23 → SUATTDRO 16:03 → 3W 16:03 → 2N 03-09 16:25
DX: N17.9 Acute kidney failure, unspecified; Z95.1 Presence of aortocoronary bypass graft; I25.10 Atherosclerotic heart disease of native coronary artery without angina pectoris; B34.9 Viral infection, unspecified; L05.91 Pilonidal cyst without abscess; K06.9 Disorder of gingiva and edentulous alveolar ridge, unspecified; R50.9 Fever, unspecified; Z79.84 Long term (current) use of oral hypoglycemic drugs; Y92.89 Other specified places as the place of occurrence of the external cause; I25.2 Old myocardial infarction; K76.0 Fatty (change of) liver, not elsewhere classified; I12.9 Hypertensive chronic kidney disease with stage 1 through stage 4 chronic kidney disease, or unspecified chronic kidney disease; E22.2 Syndrome of inappropriate secretion of antidiuretic hormone; M48.062 Spinal stenosis, lumbar region with neurogenic claudication; Z79.82 Long term (current) use of aspirin; E78.5 Hyperlipidemia, unspecified; M48.02 Spinal stenosis, cervical region; E11.22 Type 2 diabetes mellitus with diabetic chronic kidney disease; N18.31 Chronic kidney disease, stage 3a; R41.0 Disorientation, unspecified; Z79.85 Long-term (current) use of injectable non-insulin antidiabetic drugs